=== PATIENT | female | born 1945 | race Caucasian/White ===

== ENCOUNTER → 2017-01-10 | Outpatient (CLI) | payer MEDICARE ==
--- NOTE | 2017-01-12 06:54 | MM ---
Reason for exam: screening (asymptomatic). Last mammogram was performed 1 year and 4 months ago. History: Patient is postmenopausal. Family history of breast cancer in maternal aunt at age 70 and premenopausal breast cancer in maternal cousin at age 45. Benign right US cyst aspiration of the right breast, April 05, 2008. Took hormonal contraceptives for 3 years. Physical Findings: A clinical breast exam by your physician is recommended on an annual basis and results should be correlated with mammographic findings. MG 3D Screening Mammo W/Cad Bilateral CC and MLO view(s) were taken. Prior study comparison: September 23, 2015, bilateral MG 3d screening mammo w/cad. September 13, 2014, bilateral MG screening mammo w CAD. March 09, 2013, bilateral digital screening mammo w/CAD. March 07, 2012, bilateral digital screening mammo w/CAD. There are scattered fibroglandular densities. No significant changes when compared with prior studies. ASSESSMENT: Negative, BI-RAD 1 RECOMMENDATION: Routine screening mammogram of both breasts in 1 year.
== END ==
LOC: RADMAMWWP 15:34
PROVIDERS: ATTEND Family Medicine
DX: Z12.31 Encounter for screening mammogram for malignant neoplasm of breast (principal)
CPT/HCPCS: 77063; G0202

== ENCOUNTER → 2018-08-04 | Outpatient (CLI) | payer MEDICARE ==
--- NOTE | 2018-08-04 16:54 | XR ---
EXAMINATION TYPE: XR chest 2V DATE OF EXAM: 08/04/2018 COMPARISON: NONE HISTORY: Shortness of breath TECHNIQUE: Frontal and lateral views of the chest are obtained. FINDINGS: Question some abnormal increased density in the left upper lobe, seen somewhat better on th e lateral exam. There is no pleural effusion or pneumothorax seen. The cardiac silhouette size is wi thin normal limits. Pulmonary artery appears somewhat prominently. The osseous structures are intact . IMPRESSION: There may be upper lobe atelectasis or pneumonia, follow-up to resolution. Correlate for possible pulmonary artery hypertension. A [place] level critical message alert has been initiated for Kanika Vides MD via the [employer] Critical Results System on 08/04/2018 4:52 PM. This message alert has been sent to Kanika Banegas MD via the preferences provided by the clinician for the receipt of Radiology Critical Findings . Message ID [id number].
== END ==
LOC: RADXRMAIN 15:40
PROVIDERS: ATTEND Family Medicine
DX: R06.02 Shortness of breath (principal)
CPT/HCPCS: 71046

== ENCOUNTER 2018-08-07 14:46 | Inpatient (IN) | payer MEDICARE ==
[2018-08-07 16:14] LABS: Appearance,Urine Clear (Clear); Bilirubin,Urine Negative (Negative); Blood,Urine Negative (Negative); Color,Urine Light Yellow; Glucose,Urine (UA) Negative (Negative); Ketones,Urine Negative (Negative); Leukocyte Esterase,Urine Negative (Negative); Nitrite,Urine Negative (Negative); Protein,Urine Negative (Negative); Specific Gravity,Urine 1.009 (1.001-1.035); Urobilinogen,Urine <2.0 mg/dL (<2.0)
--- NOTE | 2018-08-07 17:12 | ED ---
General Adult HPI - General Source: patient, EMS, RN notes reviewed Mode of arrival: EMS Limitations: no limitations <Serjio Luke - Last Filed: 08/07/18 17:10> <Logan Sellers - Last Filed: 08/07/18 20:17> - General Chief complaint: Back Pain/Injury Stated complaint: Back pain Time Seen by Provider: 08/07/18 15:35 - History of Present Illness Initial comments: Patient 73-year-old female presented to the emergency room today with a chief complaint of right-sided lower back pain. Patient does admit that the past few weeks and feeling some right-sided back pain. She states it started as an achy type pain. She states it got worse last week she follow-up the family doctor. She states she had a chest x-ray obtained was told she had pneumonia and was started on antibiotics of Bactrim. She was also given steroids. Patient states that steroids initially did give her some relief. She states that they do not seem to be helping much today that she had increased pain right side of her lower back. States it is worse with movements and when she bends, twists or turns. Patient denies any specific injury or trauma. Denies any bowel or bladder incontinence retention. Denies any saddle anesthesia. Patient denies any other complaints. Patient denies any recent fever, chills, shortness of breath, chest pain, abdominal pain, nausea or vomiting, numbness or tingling, dysuria or hematuria, headaches or visual changes, or any other complaints. ( Serjio Luke) - Related Data Home Medications Medication Instructions Recorded Confirmed Aspirin 81 mg PO HS 12/12/14 08/07/18 Atenolol [Tenormin] 50 mg PO HS 12/12/14 08/07/18 Calcium Carbonate/Vitamin D3 1 tab PO DAILY 12/12/14 08/07/18 [Caltrate 600 + D Tablet] Losartan/Hydrochlorothiazide 1 tab PO DAILY 12/12/14 08/07/18 [Hyzaar 100-25 Tablet] Multivitamin/Iron/Folic Acid 1 tab PO DAILY 12/12/14 08/07/18 [Centrum Complete Multivit Tab] Simvastatin [Zocor] 40 mg PO HS 12/12/14 08/07/18 Acetaminophen Tab [Tylenol Tab] 1,000 mg PO Q6HR PRN 08/07/18 08/07/18 Flaxseed Oil 1,000 mg PO DAILY 08/07/18 08/07/18 Allergies Allergy/AdvReac Type Severity Reaction Status Date / Time No Known Allergies Allergy Verified 08/07/18 15:22 Review of Systems ROS Other: All systems not noted in ROS Statement are negative. <LukeSerjio - Last Filed: 08/07/18 17:10> ROS Other: All systems not noted in ROS Statement are negative. <Logan Sellers - Last Filed: 08/07/18 20:17> ROS Statement: Those systems with pertinent positive or pertinent negative responses have been documented in the HPI. Past Medical History Past Medical History: Hyperlipidemia, Hypertension, Pneumonia, Thyroid Disorder Additional Past Medical History / Comment(s): Back pain since May 2018. History of Any Multi-Drug Resistant Organisms: None Reported Past Surgical History: Orthopedic Surgery, Tonsillectomy Additional Past Surgical History / Comment(s): colonoscopy, left hip replacement Past Anesthesia/Blood Transfusion Reactions: No Reported Reaction Past Psychological History: No Psychological Hx Reported Smoking Status: Former smoker Past Alcohol Use History: Rare Past Drug Use History: None Reported - Past Family History Mother Additional Family Medical History / Comment(s): diabetes <Serjio Luke - Last Filed: 08/07/18 17:10> General Exam Limitations: no limitations <LukeSerjio - Last Filed: 08/07/18 17:10> General appearance: alert, in no apparent distress Head exam: Present: atraumatic, normocephalic, normal inspection Eye exam: Present: normal appearance, PERRL, EOMI. Absent: scleral icterus, conjunctival injection, periorbital swelling ENT exam: Present: normal exam, mucous membranes moist Neck exam: Present: normal inspection. Absent: tenderness, meningismus, lymphadenopathy Respiratory exam: Present: normal lung sounds bilaterally. Absent: respiratory distress, wheezes, rales, rhonchi, stridor Cardiovascular Exam: Present: regular rate, normal rhythm, normal heart sounds. Absent: systolic murmur, diastolic murmur, rubs, gallop, clicks GI/Abdominal exam: Present: soft, normal bowel sounds. Absent: distended, tenderness, guarding, rebound, rigid Extremities exam: Present: normal inspection, full ROM, normal capillary refill. Absent: tenderness, pedal edema, joint swelling, calf tenderness Back exam: Present: normal inspection Neurological exam: Present: alert, oriented X3, CN II-XII intact Psychiatric exam: Present: normal affect, normal mood Skin exam: Present: warm, dry, intact, normal color. Absent: rash <Logan Sellers - Last Filed: 08/07/18 20:17> - General Exam Comments Initial Comments: General: The patient is awake and alert, in no distress, and does not appear acutely ill. Eye: Pupils are equal, round and reactive to light. Extra-ocular movements are intact. No nystagmus. There is normal conjunctiva bilaterally. No signs of icterus. Ears, nose, mouth and throat: There are moist mucous membranes and no oral lesions. Neck: The neck is supple, there is no tenderness or JVD. Cardiovascular: There is a regular rate and rhythm. No murmur, rub or gallop is appreciated. Respiratory: Lungs are clear to auscultation, respirations are non-labored, breath sounds are equal. No wheezes, stridor, rales, or rhonchi. Gastrointestinal: Soft, non-distended, non-tender abdomen without masses or organomegaly noted. There is no rebound or guarding present. No CVA tenderness. Musculoskeletal: Patient shows good range of motion. Normal appearance of thoracic lumbar spine with no step-off or deformity. Patient has some tenderness midline. Patient does have tenderness. She will right side of the mid lumbar. Sensation intact. Strength 5/5. Pulses equal bilaterally 2+. Neurological: A&O x 3. CN II-XII intact, There are no obvious motor or sensory deficits. Coordination appears grossly intact. Speech is normal. Skin: Skin is warm and dry and no rashes or lesions are noted. Psychiatric: Cooperative, appropriate mood & affect, normal judgment. (Serjio Luke) Course <Serjio Luke - Last Filed: 08/07/18 17:10> <Logan Sellers - Last Filed: 08/07/18 20:17> Vital Signs 08/07/18 08/07/18 08/07/18 15:23 16:00 16:49 Temperature 99.3 F Pulse Rate 70 80 Respiratory 16 18 Rate Blood Pressure 148/67 148/67 146/77 O2 Sat by Pulse 96 97 96 Oximetry 08/07/18 08/07/18 18:00 19:00 Temperature Pulse Rate 70 77 Respiratory 16 16 Rate Blood Pressure 143/73 143/73 O2 Sat by Pulse 96 94 L Oximetry - Reevaluation(s) Reevaluation #1: 08/07/18 20:17 Patient informed of computed tomography scan findings, questions answered ( Logan Sellers) EKG Findings - EKG Comments: EKG Findings:: EKG shows normal sinus rhythm rate of 64, KS 146, QRS 88, QTc 433 <Logan Sellers - Last Filed: 08/07/18 20:17> Medical Decision Making <Serjio Luke - Last Filed: 08/07/18 17:10> - Lab Data Result diagrams: 08/07/18 16:45 08/07/18 16:45 - Radiology Data Radiology results: report reviewed (Chest x-ray negative,CT scan shows lung cancer with full lumbar and thoracic spinal metastasis), image reviewed <Logan Sellers - Last Filed: 08/07/18 20:17> - Medical Decision Making 73 female the ER for evaluation of back pain, back pain related to cancer with metastasis to spine. Patient be admitted for pain control and oncology evaluation (Logan Sellers) - Lab Data Lab Results 08/07/18 08/07/18 08/07/18 Range/Units 16:00 16:45 16:45 WBC 11.9 H (3.8-10.6) k/uL RBC 4.31 (3.80-5.40) m/uL Hgb 12.8 (11.4-16.0) gm/dL Hct 38.4 (34.0-46.0) % MCV 89.1 (80.0-100.0) fL MCH 29.8 (25.0-35.0) pg MCHC 33.5 (31.0-37.0) g/dL RDW 12.9 (11.5-15.5) % Plt Count 356 (150-450) k/uL Neutrophils % 81 % Lymphocytes % 15 % Monocytes % 4 % Eosinophils % 0 % Basophils % 0 % Neutrophils # 9.7 H (1.3-7.7) k/uL Lymphocytes # 1.7 (1.0-4.8) k/uL Monocytes # 0.4 (0-1.0) k/uL Eosinophils # 0.0 (0-0.7) k/uL Basophils # 0.0 (0-0.2) k/uL PT (9.0-12.0) sec INR (<1.2) APTT (22.0-30.0) sec Sodium (137-145) mmol/L Potassium (3.5-5.1) mmol/L Chloride (98-107) mmol/L Carbon Dioxide (22-30) mmol/L Anion Gap mmol/L BUN (7-17) mg/dL Creatinine (0.52-1.04) mg/dL Est GFR (CKD-EPI)AfAm (>60 ml/min/1.73 sqM) Est GFR (CKD-EPI)NonAf (>60 ml/min/1.73 sqM) Glucose (74-99) mg/dL Calcium (8.4-10.2) mg/dL Total Bilirubin (0.2-1.3) mg/dL AST (14-36) U/L ALT (9-52) U/L Alkaline Phosphatase (38-126) U/L Total Creatine Kinase 29 L (30-135) U/L CK-MB (CK-2) 1.1 (0.0-2.4) ng/mL CK-MB (CK-2) Rel Index 3.8 Troponin I <0.012 (0.000-0.034) ng/mL Total Protein (6.3-8.2) g/dL Albumin (3.5-5.0) g/dL Urine Color Light Yellow Urine Appearance Clear (Clear) Urine pH 7.0 (5.0-8.0) Ur Specific [place] 1.009 (1.001-1.035) Urine Protein Negative (Negative) Urine Glucose (UA) Negative (Negative) Urine Ketones Negative (Negative) Urine Blood Negative (Negative) Urine Nitrite Negative (Negative) Urine Bilirubin Negative (Negative) Urine Urobilinogen <2.0 (<2.0) mg/dL Ur Leukocyte Esterase Negative (Negative) 08/07/18 08/07/18 Range/Units 16:45 16:45 WBC (3.8-10.6) k/uL RBC (3.80-5.40) m/uL Hgb (11.4-16.0) gm/dL Hct (34.0-46.0) % MCV (80.0-100.0) fL MCH (25.0-35.0) pg MCHC (31.0-37.0) g/dL RDW (11.5-15.5) % Plt Count (150-450) k/uL Neutrophils % % Lymphocytes % % Monocytes % % Eosinophils % % Basophils % % Neutrophils # (1.3-7.7) k/uL Lymphocytes # (1.0-4.8) k/uL Monocytes # (0-1.0) k/uL Eosinophils # (0-0.7) k/uL Basophils # (0-0.2) k/uL PT 9.8 (9.0-12.0) sec INR 1.0 (<1.2) APTT 21.3 L (22.0-30.0) sec Sodium 136 L (137-145) mmol/L Potassium 4.5 (3.5-5.1) mmol/L Chloride 101 (98-107) mmol/L Carbon Dioxide 24 (22-30) mmol/L Anion Gap 11 mmol/L BUN 34 H (7-17) mg/dL Creatinine 1.28 H (0.52-1.04) mg/dL Est GFR (CKD-EPI)AfAm 48 (>60 ml/min/1.73 sqM) Est GFR (CKD-EPI)NonAf 42 (>60 ml/min/1.73 sqM) Glucose 126 H (74-99) mg/dL Calcium 9.8 (8.4-10.2) mg/dL Total Bilirubin 0.5 (0.2-1.3) mg/dL AST 25 (14-36) U/L ALT 34 (9-52) U/L Alkaline Phosphatase 146 H (38-126) U/L Total Creatine Kinase (30-135) U/L CK-MB (CK-2) (0.0-2.4) ng/mL CK-MB (CK-2) Rel Index Troponin I (0.000-0.034) ng/mL Total Protein 7.1 (6.3-8.2) g/dL Albumin 4.2 (3.5-5.0) g/dL Urine Color Urine Appearance (Clear) Urine pH (5.0-8.0) Ur Specific [place] (1.001-1.035) Urine Protein (Negative) Urine Glucose (UA) (Negative) Urine Ketones (Negative) Urine Blood (Negative) Urine Nitrite (Negative) Urine Bilirubin (Negative) Urine Urobilinogen (<2.0) mg/dL Ur Leukocyte Esterase (Negative) Disposition <Serjio Luke - Last Filed: 08/07/18 17:10> Is patient prescribed a controlled substance at d/c from ED?: No <Logan Sellers - Last Filed: 08/07/18 20:17> Clinical Impression: Metastatic cancer to spine, Mid back pain, Thoracic back pain Disposition: ADMITTED IP TO THIS HOSP Condition: Good Referrals: Kanika Vides MD [Primary Care Provider] - 1-2 days
[2018-08-07 17:16] LABS: Basophils % (A) 0 %; Eosinophils % (A) 0 %; HCT 38.4 % (34.0-46.0); HGB 12.8 gm/dL (11.4-16.0); Lymphocytes # (A) 1.7 k/uL (1.0-4.8); Lymphocytes % (A) 15 %; MCH 29.8 pg (25.0-35.0); MCHC 33.5 g/dL (31.0-37.0); MCV 89.1 fL (80.0-100.0); Mean Platelet Volume 6.7; Monocytes # (A) 0.4 k/uL (0-1.0); Monocytes % (A) 4 %; Neutrophils # (A) 9.7 k/uL (1.3-7.7); Neutrophils % (A) 81 %; Platelet Count 356 k/uL (150-450); RBC 4.31 m/uL (3.80-5.40); RDW 12.9 % (11.5-15.5); WBC 11.9 k/uL (3.8-10.6)
--- NOTE | 2018-08-07 17:19 | XR ---
EXAMINATION: XR chest 2V DATE AND TIME: 08/07/2018 4:44 PM CLINICAL INDICATION: cough TECHNIQUE: 08/07/2018 COMPARISON: 08/04/2018 FINDINGS: Abnormally increased opacity noted within the perihilar left upper lobe anteriorly. A few other scatt ered shadows are also noted. Further characterization with chest with contrast is advised. There is no pulmonary edema. No pleural effusions. No abnormal gas collections. The cardiomediastinal silhouette and bones and soft tissues are unremarkable. IMPRESSION: CHEST CT APPEARS TO BE SCHEDULED FOR LATER THIS EVENING.
[2018-08-07 17:26] LABS: Prothrombin Time 9.8 sec (9.0-12.0)
[2018-08-07 17:27] LABS: Albumin 4.2 g/dL (3.5-5.0); Calcium 9.8 mg/dL (8.4-10.2); Potassium 4.5 mmol/L (3.5-5.1); Total Bilirubin 0.5 mg/dL (0.2-1.3); Total Protein 7.1 g/dL (6.3-8.2)
[2018-08-07 17:30] LABS: Creatine Kinase 29 U/L (30-135)
[2018-08-07 17:34] LABS: Partial Thromboplastin Time 21.3 sec (22.0-30.0)
[2018-08-07 17:42] LABS: Creatine Kinase MB 1.1 ng/mL (0.0-2.4); Troponin I <0.012 ng/mL (0.000-0.034)
--- NOTE | 2018-08-07 19:53 | CT ---
EXAMINATION TYPE: CT ChestAbdPelvis wo con DATE OF EXAM: 08/07/2018 COMPARISON: Chest radiograph earlier today. HISTORY: Right side flank and back pain. CT DLP: 760.4 mGycm. Automated Exposure Control for Dose Reduction was Utilized. TECHNIQUE: CT scan of the thorax, abdomen and pelvis is performed without IV contrast. CHEST FINDINGS: There is a 4.5 cm CC by 3.5 cm AP by 2.2 cm transverse bronchogenic soft tissue density mass located within the left upper lobe anteriorly at the level of the upper hilum. Contiguous with this mass is l eft suprahilar adenopathy. There is scattered bronchiectasis. There are a few scattered nonspecific tiny pulmonary opacities noted bilaterally, measuring 1 to 3 mm . The lungs are otherwise clear and well-expanded bilaterally. There is no cardiomegaly or pericardial effusion. Coronary calcifications are noted. There are numerous spinal metastases measuring 3 cm diameter throughout the thoracic spine. Further c haracterization with MRI is recommended. ABDOMEN PELVIS FINDINGS: There are numerous skeletal skeletal osteolytic lesions consistent with neoplastic metastases. These include the spine and the right femoral head, with several measuring 3 cm diameter. Solid viscera are negative for visceromegaly or focal lesions. Hollow viscera are unremarkable. No adenopathy. No abnormal fluid or gas collections. No bowel wall obstruction or urinary tract obstruction, or panc reatic/biliary obstruction. IMPRESSION: 1. LARGE LEFT UPPER LOBE BRONCHOGENIC MASS WITH LEFT SUPRAHILAR HILAR ADENOPATHY. 2. NUMEROUS OSSEOUS METASTATIC LESIONS.
[2018-08-07] MEDS ORDERED: MORPHINE SULFATE 4 MG/ML SYRINGE IVP STA (20:18)
[2018-08-07] MEDS ORDERED: SODIUM CHLORIDE 0.9% 1,000 ML IV ONE (20:18)
[2018-08-07 23:41] VITALS: BMI 30.5
[2018-08-07] MEDS: MORPHINE SULFATE 4 MG/ML SYRINGE IVP PRN (23:49)
[2018-08-08] MEDS: MORPHINE SULFATE 4 MG/ML SYRINGE IVP PRN (05:26)
[2018-08-08] MEDS ORDERED: ENOXAPARIN 40 MG/0.4 ML SYRINGE SQ SCH (09:00)
[2018-08-08] MEDS ORDERED: NON-FORMULARY DRUG (Flaxseed Oil [Flaxseed Oil] 1,000 MG) PO SCH (09:00)
[2018-08-08 10:06] LABS: Basophils # (A) 0.1 k/uL (0-0.2); Basophils % (A) 0 %; Eosinophils # (A) 0.2 k/uL (0-0.7); Eosinophils % (A) 1 %; HCT 38.3 % (34.0-46.0); HGB 12.8 gm/dL (11.4-16.0); Lymphocytes # (A) 3.5 k/uL (1.0-4.8); Lymphocytes % (A) 27 %; MCH 30.2 pg (25.0-35.0); MCHC 33.5 g/dL (31.0-37.0); MCV 90.2 fL (80.0-100.0); Mean Platelet Volume 6.7; Monocytes # (A) 0.9 k/uL (0-1.0); Monocytes % (A) 7 %; Neutrophils # (A) 8.3 k/uL (1.3-7.7); Neutrophils % (A) 63 %; Platelet Count 338 k/uL (150-450); RBC 4.25 m/uL (3.80-5.40); WBC 13.1 k/uL (3.8-10.6)
[2018-08-08 10:13] LABS: Albumin 3.9 g/dL (3.5-5.0); Calcium 9.6 mg/dL (8.4-10.2); Potassium 4.2 mmol/L (3.5-5.1); Total Bilirubin 0.5 mg/dL (0.2-1.3); Total Protein 6.6 g/dL (6.3-8.2)
[2018-08-08] MEDS ORDERED: IOPAMIDOL-300 CONTRAST 30 ML VIAL (ORAL USE) PO PRN (10:28)
[2018-08-08] MEDS: CALCIUM CARB-VIT D 500MG-200UN 1 EACH TAB PO SCH (10:39)
[2018-08-08] MEDS: FAMOTIDINE 20 MG TAB PO SCH (10:39)
[2018-08-08] MEDS: MULTIVITAMINS, THERA 1 EACH TAB PO SCH (10:39)
[2018-08-08] MEDS: DEXAMETHASONE SOD PHOSPHATE 4 MG/ML 1 ML VIAL IV SCH ×3 (10:39→23:57)
--- NOTE | 2018-08-08 10:44 | P.HPIM ---
History of Present Illness H&P Date: 08/08/18 Chief Complaint: Back pain This is a 73-year-old patient of Dr. Vides. Patient presented to the emergency room with complaints of increased right lower back pain. Patient states the pain has been occurring for quite some time but has significantly become worse over the past few weeks. Patient to go to her PCP and get a steroid injection that provided some relief. That time a chest x-ray was completed and she was told she had pneumonia and was started on antibiotics. Over the weekend pain became increasingly worse and patient presented to the emergency room. CT of chest abdomen and pelvis completed showing a large left upper lobe bronchogenic mass with left suprahilar adenonpathy. Numerous osseous metastases lesions. Patient has a known past medical history of Hyperlipidemia, hypertension and thyroid disorder. Patient denies any cancer history. Patient does state she smoked back in the 70s but quit after a few years. Patient denies any recent weight loss, loss of appetite or chills. Dr. Leigh per oncology consulted. Discussed case with Dr. leigh planning to do lung biopsy. Pulmonary service is consulted. Patient currently getting morphine for pain control at this time. Patient does state that pain is adequately controlled. At this time patient denies chest pain or shortness of breath. Patient denies nausea vomiting or diarrhea. Patient denies any urinary burning or frequency. Review of Systems please refer to for HPI otherwise unremarkable Past Medical History Past Medical History: Hyperlipidemia, Hypertension, Pneumonia, Thyroid Disorder Additional Past Medical History / Comment(s): Back pain since May 2018. History of Any Multi-Drug Resistant Organisms: None Reported Past Surgical History: Orthopedic Surgery, Tonsillectomy Additional Past Surgical History / Comment(s): colonoscopy, left hip replacement Past Anesthesia/Blood Transfusion Reactions: No Reported Reaction Past Psychological History: No Psychological Hx Reported Smoking Status: Former smoker Past Alcohol Use History: Rare Past Drug Use History: None Reported - Past Family History Mother Additional Family Medical History / Comment(s): diabetes Medications and Allergies Home Medications Medication Instructions Recorded Confirmed Type Aspirin 81 mg PO HS 12/12/14 08/07/18 History Atenolol [Tenormin] 50 mg PO HS 12/12/14 08/07/18 History Calcium Carbonate/Vitamin D3 1 tab PO DAILY 12/12/14 08/07/18 History [Caltrate 600 + D Tablet] Losartan/Hydrochlorothiazide 1 tab PO DAILY 12/12/14 08/07/18 History [Hyzaar 100-25 Tablet] Multivitamin/Iron/Folic Acid 1 tab PO DAILY 12/12/14 08/07/18 History [Centrum Complete Multivit Tab] Simvastatin [Zocor] 40 mg PO HS 12/12/14 08/07/18 History Acetaminophen Tab [Tylenol Tab] 1,000 mg PO Q6HR PRN 08/07/18 08/07/18 History Flaxseed Oil 1,000 mg PO DAILY 08/07/18 08/07/18 History Allergies Allergy/AdvReac Type Severity Reaction Status Date / Time No Known Allergies Allergy Verified 08/07/18 15:22 Physical Exam Vitals: Vital Signs Temp Pulse Pulse Resp BP BP Pulse Ox 08/08/18 08:00 72 16 08/08/18 05:52 98.2 F 72 16 139/65 95 08/07/18 22:44 98.4 F 71 16 137/71 96 08/07/18 21:18 99.1 F 85 16 137/74 99 08/07/18 19:00 77 16 143/73 94 L 08/07/18 18:00 70 16 143/73 96 08/07/18 16:49 80 18 146/77 96 08/07/18 16:00 148/67 97 08/07/18 15:23 99.3 F 70 16 148/67 96 Intake and Output 08/07/18 08/08/18 08/08/18 22:59 06:59 14:59 Intake Total 1400 480 Balance 1400 480 Intake: Intake, IV Titration 800 Amount Sodium Chloride 0.9% 1, 800 000 ml @ 100 mls/hr IV . Q10H ONE Rx#:[id number] Oral 600 480 Other: Voiding Method Toilet Toilet # Voids 2 2 Weight 88.451 kg 88.451 kg Head normocephalic Neck supple Lungs clear to auscultation bilaterally no wheezing or crackles Heart regular rate and rhythm S1-S2, no rub or gallop Abdomen is soft nontender nondistended positive bowel sounds no hepatosplenomegaly Extremities no edema Neuro alert and orientated to 3 Results CBC & Chem 7: 08/08/18 09:47 08/08/18 09:47 Labs: Abnormal Lab Results - Last 24 Hours (Table) 08/07/18 08/07/18 08/07/18 Range/Units 16:45 16:45 16:45 WBC 11.9 H (3.8-10.6) k/uL Neutrophils # 9.7 H (1.3-7.7) k/uL APTT (22.0-30.0) sec Sodium 136 L (137-145) mmol/L BUN 34 H (7-17) mg/dL Creatinine 1.28 H (0.52-1.04) mg/dL Glucose 126 H (74-99) mg/dL Alkaline Phosphatase 146 H (38-126) U/L Total Creatine Kinase 29 L (30-135) U/L 08/07/18 08/08/18 08/08/18 Range/Units 16:45 09:47 09:47 WBC 13.1 H (3.8-10.6) k/uL Neutrophils # 8.3 H (1.3-7.7) k/uL APTT 21.3 L (22.0-30.0) sec Sodium 136 L (137-145) mmol/L BUN 29 H (7-17) mg/dL Creatinine 1.10 H (0.52-1.04) mg/dL Glucose 120 H (74-99) mg/dL Alkaline Phosphatase 145 H (38-126) U/L Total Creatine Kinase (30-135) U/L Assessment and Plan Assessment: 1. Right lower back pain. Chest abdomen and pelvis CT completed showing large left upper lobe bronchiogenic mass with left suprahilar adenopathy. Numerous osseous metastases lesions. Dr. Leigh has been consulted for oncology services. Will discuss case with Dr. leigh planning possible lung biopsy. Pulmonary services have been consulted. Currently receiving morphine for pain control at this time 2. History of tobacco use. Patient states she smoked in the 70s but quit when she became with her first daughter only smoked for a couple years 3. History of hyperlipidemia 4. History of essential hypertension 5. History of thyroid disorder 6. Acute kidney injury. Initial creatinine 1.28 and bun 34. Continue to monitor closely 7. Elevated liver enzymes. Alkaline phosphatase 146. We'll continue to monitor closely Tylenol on hold 8. Leukocytosis. White Blood cell 13.1. Patient did state she got steroid injection by her PCP on Tuesday. Patient also on Decadron per oncology services. UA negative. We'll continue to monitor closely at this time DVT prophylaxis Lovenox and GI prophylaxis Pepcid Time with Patient: Greater than 30 (Greater than 60% of the total time spent in counseling and coordination of care. I performed an examination of the patient and discussed their management with the Nurse Practitioner. I have reviewed the Nurse Practitioner's notes and agree with the documented findings and plan of care)
[2018-08-08] MEDS ORDERED: MORPHINE SULFATE 2 MG/ML SYRINGE IVP PRN (11:23)
[2018-08-08] MEDS: HYDROcodone/APAP 5-325MG 1 EACH TAB PO PRN ×2 (12:05→21:12)
[2018-08-08 12:48] LABS: Hemoglobin A1C 5.9 % (4.0-6.0)
--- NOTE | 2018-08-08 13:19 | P.CONS ---
History of Present Illness - Reason for Consult Consult date: 08/08/18 bone mets Requesting physician: Khanh Leigh - Chief Complaint back pain - History of Present Illness The patient is a 73-year-old female who presented to the ER with progressive lower right back pain. According to the patient, this pain has been gradually increasing over the past 1-2 weeks. She was seen was past week by her primary care physician. She initially had a steroid shot which seemed to help. However , within a couple of days the pain again progressed. She presented to the ER on 08/07 when she reported the pain was up to 10 out of 10. The pain was so severe she was unable to ambulate secondary to the pain. A CT scan of the chest , abdomen and pelvis on August 07 revealed a 4.5 x 3.5 x 2.2 cm left upper lung mass extending to the hilum. Numerous lesions in the thoracic and lumbar spine were seen, as well as a metastasis in the right femoral head. Since admission, the patient is doing much better with morphine for pain management. This takes her pain level down to 1 or 2 out of 10. The pain still could be exacerbated with ambulating, twisting or moving the low back. She denies difficulty with numbness or tingling of the extremities, has no weakness of the extremities and no urinary incontinence. The patient did have an episode of loss of urine control while at home when she could not get to the bathroom on time. She reports no difficulty with cough or dyspnea on exertion. Review of Systems Constitutional: Denies chills, Denies fever Eyes: denies blurred vision Ears, nose, mouth and throat: Denies headache Breasts: absent: masses Cardiovascular: Denies chest pain, Denies dyspnea on exertion Respiratory: Denies cough, Denies dyspnea, Denies hemoptysis Gastrointestinal: Denies abdominal pain Genitourinary: Denies abnormal vaginal bleeding Musculoskeletal: Reports low back pain Neurological: Denies aphasia, Denies ataxia, Denies burning pain, Denies confusion, Denies convulsions, Denies headaches, Denies loss of vision Psychiatric: Denies anxiety, Denies depression Past Medical History Past Medical History: Hyperlipidemia, Hypertension, Pneumonia, Thyroid Disorder Additional Past Medical History / Comment(s): Back pain since May 2018. History of Any Multi-Drug Resistant Organisms: None Reported Past Surgical History: Orthopedic Surgery, Tonsillectomy Additional Past Surgical History / Comment(s): colonoscopy, left hip replacement Past Anesthesia/Blood Transfusion Reactions: No Reported Reaction Past Psychological History: No Psychological Hx Reported Smoking Status: Former smoker (<1 pack per day for 9 years - quit 1973) Past Alcohol Use History: Rare Past Drug Use History: None Reported - Past Family History Mother Additional Family Medical History / Comment(s): diabetes Medications and Allergies Home Medications Medication Instructions Recorded Confirmed Type Aspirin 81 mg PO HS 12/12/14 08/07/18 History Atenolol [Tenormin] 50 mg PO HS 12/12/14 08/07/18 History Calcium Carbonate/Vitamin D3 1 tab PO DAILY 12/12/14 08/07/18 History [Caltrate 600 + D Tablet] Losartan/Hydrochlorothiazide 1 tab PO DAILY 12/12/14 08/07/18 History [Hyzaar 100-25 Tablet] Multivitamin/Iron/Folic Acid 1 tab PO DAILY 12/12/14 08/07/18 History [Centrum Complete Multivit Tab] Simvastatin [Zocor] 40 mg PO HS 12/12/14 08/07/18 History Acetaminophen Tab [Tylenol Tab] 1,000 mg PO Q6HR PRN 08/07/18 08/07/18 History Flaxseed Oil 1,000 mg PO DAILY 08/07/18 08/07/18 History Allergies Allergy/AdvReac Type Severity Reaction Status Date / Time No Known Allergies Allergy Verified 08/07/18 15:22 Physical Exam Vitals: Vital Signs Temp Pulse Pulse Resp BP BP BP 08/08/18 11:50 97.6 F 68 14 136/69 08/08/18 08:30 14 08/08/18 08:00 72 16 08/08/18 05:52 98.2 F 72 16 139/65 08/07/18 22:44 98.4 F 71 16 137/71 08/07/18 21:18 99.1 F 85 16 137/74 08/07/18 19:00 77 16 143/73 08/07/18 18:00 70 16 143/73 08/07/18 16:49 80 18 146/77 08/07/18 16:00 148/67 08/07/18 15:23 99.3 F 70 16 148/67 Pulse Ox 08/08/18 11:50 96 08/08/18 08:30 08/08/18 08:00 08/08/18 05:52 95 08/07/18 22:44 96 08/07/18 21:18 99 08/07/18 19:00 94 L 08/07/18 18:00 96 08/07/18 16:49 96 08/07/18 16:00 97 08/07/18 15:23 96 Intake and Output 08/07/18 08/08/18 08/08/18 22:59 06:59 14:59 Intake Total 1400 480 Balance 1400 480 Intake: Intake, IV Titration 800 Amount Sodium Chloride 0.9% 1, 800 000 ml @ 100 mls/hr IV . Q10H ONE Rx#:[id number] Oral 600 480 Other: Voiding Method Toilet Toilet # Voids 2 2 3 Weight 88.451 kg 88.451 kg - Constitutional General appearance: average body habitus, no acute distress - EENT Eyes: EOMI, PERRLA ENT: NA/AT - Neck Neck: no lymphadenopathy - Respiratory Respiratory: bilateral: CTA - Cardiovascular Rhythm: regular - Gastrointestinal General gastrointestinal: no tenderness - Integumentary Integumentary: no calor, no cellulitis - Neurologic Neurologic: CNII-XII intact - Musculoskeletal Musculoskeletal: strength equal bilaterally - Psychiatric Psychiatric: A&O x's 3, appropriate affect, intact judgment & insight Results CBC & Chem 7: 08/08/18 09:47 08/08/18 09:47 Labs: Abnormal Lab Results - Last 24 Hours (Table) 08/07/18 08/07/18 08/07/18 Range/Units 16:45 16:45 16:45 WBC 11.9 H (3.8-10.6) k/uL Neutrophils # 9.7 H (1.3-7.7) k/uL APTT (22.0-30.0) sec Sodium 136 L (137-145) mmol/L BUN 34 H (7-17) mg/dL Creatinine 1.28 H (0.52-1.04) mg/dL Glucose 126 H (74-99) mg/dL Alkaline Phosphatase 146 H (38-126) U/L Total Creatine Kinase 29 L (30-135) U/L 08/07/18 08/08/18 08/08/18 Range/Units 16:45 09:47 09:47 WBC 13.1 H (3.8-10.6) k/uL Neutrophils # 8.3 H (1.3-7.7) k/uL APTT 21.3 L (22.0-30.0) sec Sodium 136 L (137-145) mmol/L BUN 29 H (7-17) mg/dL Creatinine 1.10 H (0.52-1.04) mg/dL Glucose 120 H (74-99) mg/dL Alkaline Phosphatase 145 H (38-126) U/L Total Creatine Kinase (30-135) U/L Chest x-ray: image reviewed CT scan - chest: report reviewed, image reviewed CT scan - pelvis: report reviewed, image reviewed Assessment and Plan Plan: The patient is a 73-year-old female with findings concerning for a new primary lung cancer with bone metastasis. The patient does not have a significant smoking history; having briefly smoked and quit in the 1970s. 1. Right low back pain: This is likely secondary to the patient's bony metastasis. The patient appears to have a large lesion in the right femoral head as well as lesions within the sacrum. The lesion in the femur is at significant risk for fracture, and the patient should undergo palliative radiotherapy to this area. I would recommend orthopedics also take a look at the right hip to see if they feel this needs stabilization. The patient will first undergo MRI of the spine to rule out any areas of spinal cord compromise. She will also need radiotherapy to the T-spine as she has a lesion which appears to have extension into the spinal canal - MRI will help to further show this. 2. Newly diagnosed likely lung cancer: We will need to obtain a biopsy to establish diagnosis, as well as the likely need for mutational analysis. We will preferably wait for establishment of pathology prior to initiating any radiotherapy treatments. Time with Patient: Greater than 30
[2018-08-08] MEDS ORDERED: ONDANSETRON 4 MG/2 ML VIAL IVP PRN (13:54)
--- NOTE | 2018-08-08 14:02 | P.CNPUL ---
History of Present Illness Consult date: 08/08/18 Requesting physician: Con Stevenson Reason for consult: other (Back pain) Chief complaint: Back pain History of present illness: This is a very pleasant 73-year-old female patient who follows with Dr. Vides as her primary care physician. She has a history of hypertension, hyperlipidemia, left hip replacement. She has a very remote history of smoking. She had been having ongoing issues with right lower back pain. She had been seen by her PCP who performed a chest x-ray and she was told she had pneumonia and was started on steroids and Bactrim. She felt the steroids did give her some relief initially. The pain has progressively gotten worse and she presented to the emergency room yesterday afternoon for pain control. A chest x-ray revealed abnormality increased opacity noted in the perihilar left upper lobe anteriorly. A few other scattered shadows were also noted. Computed tomography scan revealed a 4.5 x 3.5 x 2.2 cm bronchogenic soft tissue density located in left upper lobe anteriorly at the left upper hilum. There is contiguous left suprahilar adenopathy. There is also noted numerous spinal metastases measuring 3 cm in diameter throughout the thoracic spine. The patient has no previous history of cancer. No pulmonary complaints. No hemoptysis. No weight loss. No shortness of breath. Her pain is improved today compared to yesterday she is being treated with morphine and Aurora. She has been initiated on Decadron. MRI of the cervical spine, brain, thoracic and lumbar spines are pending. She had been seen and evaluated by medical oncology and radiation oncology. We have been consulted for bronchoscopy with biopsy for diagnosis. Review of Systems Constitutional: Denies chills, Denies fever Eyes: denies blurred vision, denies decreased vision Ears: deny: decreased hearing Ears, nose, mouth and throat: Denies headache, Denies sore throat Cardiovascular: Denies chest pain, Denies shortness of breath Respiratory: Denies cough Gastrointestinal: Denies abdominal pain, Denies diarrhea, Denies nausea, Denies vomiting Genitourinary: Denies dysuria, Denies hematuria Musculoskeletal: Reports low back pain Integumentary: Denies pruritus, Denies rash Neurological: Denies numbness, Denies weakness Psychiatric: Denies anxiety, Denies depression Endocrine: Denies fatigue, Denies weight change Hematologic/Lymphatic: Reports as per HPI Allergic/Immunologic: Reports as per HPI Past Medical History Past Medical History: Hyperlipidemia, Hypertension, Pneumonia, Thyroid Disorder Additional Past Medical History / Comment(s): Back pain since May 2018. History of Any Multi-Drug Resistant Organisms: None Reported Past Surgical History: Orthopedic Surgery, Tonsillectomy Additional Past Surgical History / Comment(s): colonoscopy, left hip replacement Past Anesthesia/Blood Transfusion Reactions: No Reported Reaction Past Psychological History: No Psychological Hx Reported Smoking Status: Former smoker (<1 pack per day for 9 years - quit 1973) Past Alcohol Use History: Rare Past Drug Use History: None Reported - Past Family History Mother Additional Family Medical History / Comment(s): diabetes Medications and Allergies Home Medications Medication Instructions Recorded Confirmed Type Aspirin 81 mg PO HS 12/12/14 08/07/18 History Atenolol [Tenormin] 50 mg PO HS 12/12/14 08/07/18 History Calcium Carbonate/Vitamin D3 1 tab PO DAILY 12/12/14 08/07/18 History [Caltrate 600 + D Tablet] Losartan/Hydrochlorothiazide 1 tab PO DAILY 12/12/14 08/07/18 History [Hyzaar 100-25 Tablet] Multivitamin/Iron/Folic Acid 1 tab PO DAILY 12/12/14 08/07/18 History [Centrum Complete Multivit Tab] Simvastatin [Zocor] 40 mg PO HS 12/12/14 08/07/18 History Acetaminophen Tab [Tylenol Tab] 1,000 mg PO Q6HR PRN 08/07/18 08/07/18 History Flaxseed Oil 1,000 mg PO DAILY 08/07/18 08/07/18 History Allergies Allergy/AdvReac Type Severity Reaction Status Date / Time No Known Allergies Allergy Verified 08/07/18 15:22 Physical Exam Vitals: Vital Signs Temp Pulse Pulse Resp BP BP BP 08/08/18 11:50 97.6 F 68 14 136/69 08/08/18 08:30 14 08/08/18 08:00 72 16 08/08/18 05:52 98.2 F 72 16 139/65 08/07/18 22:44 98.4 F 71 16 137/71 08/07/18 21:18 99.1 F 85 16 137/74 08/07/18 19:00 77 16 143/73 08/07/18 18:00 70 16 143/73 08/07/18 16:49 80 18 146/77 08/07/18 16:00 148/67 08/07/18 15:23 99.3 F 70 16 148/67 Pulse Ox 08/08/18 11:50 96 08/08/18 08:30 08/08/18 08:00 08/08/18 05:52 95 08/07/18 22:44 96 08/07/18 21:18 99 08/07/18 19:00 94 L 08/07/18 18:00 96 08/07/18 16:49 96 08/07/18 16:00 97 08/07/18 15:23 96 Intake and Output 08/07/18 08/08/18 08/08/18 22:59 06:59 14:59 Intake Total 1400 480 Balance 1400 480 Intake: Intake, IV Titration 800 Amount Sodium Chloride 0.9% 1, 800 000 ml @ 100 mls/hr IV . Q10H ONE Rx#:[id number] Oral 600 480 Other: Voiding Method Toilet Toilet # Voids 2 2 3 Weight 88.451 kg 88.451 kg - Constitutional General appearance: average body habitus, cooperative, no acute distress - EENT Eyes: EOMI, PERRLA ENT: hearing grossly normal Ears: bilateral: normal - Neck Neck: normal ROM Carotids: bilateral: upstroke normal Thyroid: bilateral: normal size - Respiratory Respiratory: bilateral: CTA - Cardiovascular Rhythm: regular Heart sounds: normal: S1, S2 - Gastrointestinal General gastrointestinal: normal bowel sounds - Integumentary Integumentary: normal turgor - Neurologic Neurologic: CNII-XII intact - Musculoskeletal Musculoskeletal: generalized weakness - Psychiatric Psychiatric: A&O x's 3, appropriate affect, intact judgment & insight Results - Laboratory Findings CBC and BMP: 08/08/18 09:47 08/08/18 09:47 PT/INR, D-dimer PT 9.8 sec (9.0-12.0) 08/07/18 16:45 INR 1.0 (<1.2) 08/07/18 16:45 Abnormal lab findings: Abnormal Labs 08/07/18 08/07/18 08/07/18 16:45 16:45 16:45 WBC 11.9 H Neutrophils # 9.7 H APTT Sodium 136 L BUN 34 H Creatinine 1.28 H Glucose 126 H Alkaline Phosphatase 146 H Total Creatine Kinase 29 L 08/07/18 08/08/18 08/08/18 16:45 09:47 09:47 WBC 13.1 H Neutrophils # 8.3 H APTT 21.3 L Sodium 136 L BUN 29 H Creatinine 1.10 H Glucose 120 H Alkaline Phosphatase 145 H Total Creatine Kinase - Diagnostic Findings Chest x-ray: image reviewed CT scan - chest: image reviewed Assessment and Plan Assessment: Impression: #1 Spinal skeletal pain secondary to suspected metastasis with numerous lesions throughout the thoracic spine. There are numerous skeletal osteolytic lesions also noted in the right femoral head with several measuring 3 cm in diameter. #2 Bronchogenic soft tissue density mass measuring 4.5 x 3.5 x 2.2 cm located within the left upper lobe anteriorly at the level of the upper hilum. There is left suprahilar adenopathy as well. Suspect primary bronchogenic carcinoma with metastasis. #3 Remote history of chronic tobacco dependence. #4 Hypertension. #5 Hyperlipidemia. Plan: The patient was seen and evaluated by Dr. Wahl. Chest x-ray, CAT scan and labs were all reviewed. CAT scan findings were discussed in detail with the patient. We may consider bronchoscopy with biopsy in the a.m. The patient is agreeable. Hold Lovenox. Nothing by mouth after midnight. We will continue to follow and make further recommendations based on her clinical status. I, the cosigning physician, performed a history & physical examination of the patient. Lungs sounds are clear. Maintaining good O2 saturations in the 90s on room air. I discussed the assessment and plan of care with my nurse practitioner, Citlali Arceo. I attest to the above consultation as dictated by her. Time with Patient: Greater than 30
--- NOTE | 2018-08-08 17:49 | MR ---
MRI CERVICAL SPINE: MRI THORACIC SPINE: CLINICAL HISTORY: Lung cancer with spinal metastases per order. TECHNIQUE: Multiplanar, multisequence imaging of the cervical and thoracic spine are performed withou t and with IV contrast, 9 cc of gadolinium was given intravenously. COMPARISON: CT chest August 07, 2018. FINDINGS: C-SPINE: Sagittal images of the cervical spine show the craniocervical junction to appear within normal limits . The cervical and upper thoracic spinal cord is normal in course, caliber, and signal. There is lev oconvex scoliosis centered in the upper to mid thoracic spine on coronal images. There is grade 1 ret rolisthesis of C5 on C6. The vertebral body heights are normal. There is multilevel disc desiccation and fairly moderate disc space narrowing, most prominent narrowing at C5-C6 and C6-C7 levels. Multil evel posterior disc herniation effacing the anterior thecal sac on sagittal images. The bone marrow s ignal intensity shows some heterogeneous endplate changes centered near C6 level. No suspicious enhan cement is noted. Axial images at C2-C3 level to left and uncovertebral facet degenerative changes contributing to mode rate left-sided neural foraminal narrowing. Right-sided neural foramina is patent. Axial images at C3-C4 levels uncovertebral facet degenerative changes bilaterally. There is central d isc protrusion effaces the anterior thecal sac nearly up to ventral surface of the spinal cortex imag e 45. There is [id number] bilateral neural foraminal narrowing at this level identified. Axial images at C4-C5 level show left-sided uncovertebral facet degenerative changes. There is broad- based posterior disc protrusion. There is effacement of the anterior thecal sac with moderate to agus re left and mild to moderate right-sided neural foraminal narrowing. Axial images at C5-C6 level show posterior spur disc complex and uncovertebral facet degenerative german nges, there is effacement of anterior thecal sac with moderate left greater than right bilateral neur al foraminal narrowing noted. Axial images at C6-C7 level show spondylolisthesis and broad-based posterior disc protrusion effacing anterior thecal sac up to ventral surface of spinal cord, there is advanced right and moderate left- sided neural foraminal narrowing at this level identified. Axial images at C7-T1 level shows central disc protrusion effacing anterior thecal sac, bilateral bo ral foramina are patent. There is asymmetric enlargement left thyroid with 1.7 cm thyroid nodule suspected axial image 19. Adv ise thyroid ultrasound follow-up to better evaluate and characterize. IMPRESSION: No osseous metastatic disease to cervical spine. Spondylolisthesis and multilevel degener ative changes as detailed above. Left-sided thyroid nodule, advise thyroid ultrasound follow-up. T-SPINE: FINDINGS: Spinal cord shows normal course, caliber, and signal as it courses the thoracic spine. Dest ructive metastatic lesions involving T5 and T6 vertebra are identified. Additional lesions involving T12 and L2 vertebra are present. Slight posterior retropulsion of T5 vertebra effaces the anterior th ecal sac sagittal image 9. There is mild to moderate multilevel anterior spurring. Sclerotic lesion i n the anterior superior T11 vertebra is seen better on CT. There is overall heterogeneity of bone mar row signal intensity. No large posterior disc herniations are seen on sagittal images. Axial images are somewhat degraded by patient motion related to pain. Slight posterior effacement of right T12 vertebral body due to posterior retropulsion of metastatic lesion axial image 7 is noted. T here is partial visualization of suspicious anterior left upper to midlung mass or neoplasm with enha ncement axial image [address] IMPRESSION: Osseous metastatic lesions involving T5, T6, T12, and L2 vertebra. Some bony destruction most prominent T6 vertebra is noted. Slight posterior retropulsion of T5 and right T12 vertebra are present anterior spinal canal.
--- NOTE | 2018-08-08 19:49 | P.CONS ---
History of Present Illness - Reason for Consult Consult date: 08/08/18 lung mass and bone metastasis - History of Present Illness The patient is a 73-year-old white female, who is overall fairly healthy. The patient states that she been having some right lower back pain for some months off and on, with some radiation down the right leg. She had not paid much attention to it. However over the last 3-4 weeks to set become more severe and constant. She was seen by her PCP and received a steroid shot with transient relief. She was seen last week and had x-rays done and was felt to have possibly a left lower lobe pneumonia. She was started on antibiotics, but did not have much relief. She therefore came into the emergency room. She had an x-ray which indicated masslike density in the left lower lobe. CT of the chest abdomen and pelvis was done, which revealed a 4.4.2 3.5 cm left hilar mass, with widespread bone metastasis affecting the thoracic and lumbar spine, measuring up to 3 cm. She was therefore admitted for further management She denied any prior history of malignancy. The patient states that she smoked for about 10 years but quit in 1973. She denied any significant secondhand smoking exposure at least in the last 30 years. Review of Systems Constitutional: Reports weakness Eyes: denies blurred vision, denies pain Ears: deny: decreased hearing, ear discharge, earache, tinnitus Ears, nose, mouth and throat: Denies headache, Denies sore throat Cardiovascular: Denies chest pain, Denies shortness of breath Respiratory: Denies cough Gastrointestinal: Denies abdominal pain, Denies diarrhea, Denies nausea, Denies vomiting Genitourinary: Reports urge incontinence, Denies dysuria, Denies hematuria Menstruation: Reports postmenopausal Musculoskeletal: Reports low back pain, Reports shooting leg pain Musculoskeletal: right: hip stiffness Integumentary: Denies pruritus, Denies rash Neurological: Denies numbness, Denies weakness Psychiatric: Denies anxiety, Denies depression Endocrine: Denies fatigue, Denies weight change Hematologic/Lymphatic: Reports as per HPI Past Medical History Past Medical History: Hyperlipidemia, Hypertension, Pneumonia, Thyroid Disorder Additional Past Medical History / Comment(s): Back pain since May 2018. History of Any Multi-Drug Resistant Organisms: None Reported Past Surgical History: Orthopedic Surgery, Tonsillectomy Additional Past Surgical History / Comment(s): colonoscopy, left hip replacement Past Anesthesia/Blood Transfusion Reactions: No Reported Reaction Past Psychological History: No Psychological Hx Reported Smoking Status: Former smoker (<1 pack per day for 9 years - quit 1973) Past Alcohol Use History: Rare Past Drug Use History: None Reported - Past Family History Mother Additional Family Medical History / Comment(s): diabetes Medications and Allergies Home Medications Medication Instructions Recorded Confirmed Type Aspirin 81 mg PO HS 12/12/14 08/07/18 History Atenolol [Tenormin] 50 mg PO HS 12/12/14 08/07/18 History Calcium Carbonate/Vitamin D3 1 tab PO DAILY 12/12/14 08/07/18 History [Caltrate 600 + D Tablet] Losartan/Hydrochlorothiazide 1 tab PO DAILY 12/12/14 08/07/18 History [Hyzaar 100-25 Tablet] Multivitamin/Iron/Folic Acid 1 tab PO DAILY 12/12/14 08/07/18 History [Centrum Complete Multivit Tab] Simvastatin [Zocor] 40 mg PO HS 12/12/14 08/07/18 History Acetaminophen Tab [Tylenol Tab] 1,000 mg PO Q6HR PRN 08/07/18 08/07/18 History Flaxseed Oil 1,000 mg PO DAILY 08/07/18 08/07/18 History Allergies Allergy/AdvReac Type Severity Reaction Status Date / Time No Known Allergies Allergy Verified 08/07/18 15:22 Physical Exam Vitals: Vital Signs Temp Pulse Pulse Resp BP BP BP 08/08/18 11:50 97.6 F 68 14 136/69 08/08/18 08:30 14 08/08/18 08:00 72 16 08/08/18 05:52 98.2 F 72 16 139/65 08/07/18 22:44 98.4 F 71 16 137/71 08/07/18 21:18 99.1 F 85 16 137/74 08/07/18 19:00 77 16 143/73 08/07/18 18:00 70 16 143/73 Pulse Ox 08/08/18 11:50 96 08/08/18 08:30 08/08/18 08:00 08/08/18 05:52 95 08/07/18 22:44 96 08/07/18 21:18 99 08/07/18 19:00 94 L 08/07/18 18:00 96 Intake and Output 08/08/18 08/08/18 08/08/18 06:59 14:59 22:59 Intake Total 480 Balance 480 Intake: Oral 480 Other: Voiding Method Toilet Toilet # Voids 2 2 Weight 88.451 kg - Constitutional General appearance: no acute distress - EENT Eyes: EOMI, PERRLA ENT: hearing grossly normal, normal oropharynx - Neck Neck: no lymphadenopathy Thyroid: bilateral: normal size - Respiratory Respiratory: bilateral: CTA - Cardiovascular Rhythm: regular Heart sounds: normal: S1, S2 - Gastrointestinal General gastrointestinal: normal bowel sounds, soft - Integumentary Integumentary: normal - Neurologic Neurologic: CNII-XII intact - Musculoskeletal Musculoskeletal: strength equal bilaterally - Psychiatric Psychiatric: A&O x's 3, appropriate affect Results CBC & Chem 7: 08/08/18 09:47 08/08/18 09:47 Labs: Abnormal Lab Results - Last 24 Hours (Table) 08/07/18 08/07/18 08/07/18 Range/Units 16:45 16:45 16:45 WBC 11.9 H (3.8-10.6) k/uL Neutrophils # 9.7 H (1.3-7.7) k/uL APTT (22.0-30.0) sec Sodium 136 L (137-145) mmol/L BUN 34 H (7-17) mg/dL Creatinine 1.28 H (0.52-1.04) mg/dL Glucose 126 H (74-99) mg/dL Alkaline Phosphatase 146 H (38-126) U/L Total Creatine Kinase 29 L (30-135) U/L 08/07/18 08/08/18 08/08/18 Range/Units 16:45 09:47 09:47 WBC 13.1 H (3.8-10.6) k/uL Neutrophils # 8.3 H (1.3-7.7) k/uL APTT 21.3 L (22.0-30.0) sec Sodium 136 L (137-145) mmol/L BUN 29 H (7-17) mg/dL Creatinine 1.10 H (0.52-1.04) mg/dL Glucose 120 H (74-99) mg/dL Alkaline Phosphatase 145 H (38-126) U/L Total Creatine Kinase (30-135) U/L Chest x-ray: report reviewed CT scan - abdomen: report reviewed CT scan - chest: report reviewed CT scan - pelvis: report reviewed Assessment and Plan (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 The results of the CT scans and implications were discussed in detail with her. She was advised that the clinical picture is most suggestive of a metastatic malignancy from a lung primary. Other etiologies are not ruled out. - The pt will need a tissue diagnosis. Pulmonary consult to target the lung lesion would be recommended. Case was d/w the admitting service to request the same - ASA will be held in view of upcoming biopsy - The pt has no evidence of neurologic compromise ( other than urge type urinary incontinence, which is non specific) so far. As that is a significant concern gong forward, I will check MRI spinal survery. Decadron will be initiated for now, till MRI is completed. Radiation Oncology was consulted and case d/w with them, as it is anticipated that she will most likely need palliative RT - Continue current pain regimen with IV morphine. Depending on her requirements , she will be transitioned to a suitable outpt regimen - Monitor for any evidence of neurologic compromise Current Visit: Yes Status: Acute Code(s): C79.51 - SECONDARY MALIGNANT NEOPLASM OF BONE SNOMED Code(s): 01827587 (2) Lung mass Narrative/Plan: As above. If the mass is not felt to be an appropriate target per Pulmonary, the bone lesions will be evaluated for the same Current Visit: Yes Status: Acute Code(s): R91.8 - OTHER NONSPECIFIC ABNORMAL FINDING OF LUNG FIELD SNOMED Code(s): 058025058
[2018-08-08 20:55] VITALS: RESP 16
[2018-08-08] MEDS ORDERED: ASPIRIN 81 MG PO SCH (21:00)
[2018-08-08] MEDS: ATENOLOL 50 MG TAB PO SCH (21:55)
[2018-08-09] MEDS ORDERED: HYDROmorphone 1 MG/ML 1 ML SYRINGE IVP PRN (05:52)
[2018-08-09 07:21] LABS: Basophils % (A) 0 %; Eosinophils % (A) 0 %; HCT 35.4 % (34.0-46.0); HGB 11.9 gm/dL (11.4-16.0); Lymphocytes # (A) 1.3 k/uL (1.0-4.8); Lymphocytes % (A) 15 %; MCH 30.3 pg (25.0-35.0); MCHC 33.6 g/dL (31.0-37.0); MCV 90.2 fL (80.0-100.0); Mean Platelet Volume 6.6; Monocytes # (A) 0.4 k/uL (0-1.0); Monocytes % (A) 5 %; Neutrophils # (A) 6.7 k/uL (1.3-7.7); Neutrophils % (A) 79 %; Platelet Count 326 k/uL (150-450); RBC 3.92 m/uL (3.80-5.40); WBC 8.5 k/uL (3.8-10.6)
[2018-08-09 07:36] LABS: Albumin 3.5 g/dL (3.5-5.0); Calcium 9.3 mg/dL (8.4-10.2); Potassium 4.7 mmol/L (3.5-5.1); Total Bilirubin 0.4 mg/dL (0.2-1.3)
[2018-08-09] MEDS: DEXAMETHASONE SOD PHOSPHATE 4 MG/ML 1 ML VIAL IV SCH ×3 (08:47→23:53)
[2018-08-09] MEDS: LOSARTAN-HCTZ 50-12.5 MG 1 EACH TAB PO SCH (08:48)
[2018-08-09] MEDS: CALCIUM CARB-VIT D 500MG-200UN 1 EACH TAB PO SCH (08:48)
[2018-08-09] MEDS: FAMOTIDINE 20 MG TAB PO SCH (08:48)
--- NOTE | 2018-08-09 10:45 | P.PN ---
Subjective Progress Note Date: 08/09/18 This is a 73-year-old patient of Dr. Vides. Patient presented to the emergency room with complaints of increased right lower back pain. Patient states the pain has been occurring for quite some time but has significantly become worse over the past few weeks. Patient to go to her PCP and get a steroid injection that provided some relief. That time a chest x-ray was completed and she was told she had pneumonia and was started on antibiotics. Over the weekend pain became increasingly worse and patient presented to the emergency room. CT of chest abdomen and pelvis completed showing a large left upper lobe bronchogenic mass with left suprahilar adenonpathy. Numerous osseous metastases lesions. Patient has a known past medical history of Hyperlipidemia, hypertension and thyroid disorder. Patient denies any cancer history. Patient does state she smoked back in the 70s but quit after a few years. Patient denies any recent weight loss, loss of appetite or chills. Dr. Leigh per oncology consulted. Discussed case with Dr. leigh planning to do lung biopsy. Pulmonary service is consulted. Patient currently getting morphine for pain control at this time. Patient does state that pain is adequately controlled. At this time patient denies chest pain or shortness of breath. Patient denies nausea vomiting or diarrhea. Patient denies any urinary burning or frequency. On 08/09/2018 patient remains alert and oriented 3. Patient is resting comfortably in bed. At this time patient states she has adequate pain control with the Gilbert. Patient is experiencing slight pain in her right lower back. Patient denies chest pain or shortness of breath. Denies nausea vomiting or diarrhea. Patient to get or prosecute with lung biopsy today. Patient did get 2 out of for MRI completed staging per Dr. Leigh. Objective - Vital Signs Vital signs: Vital Signs Temp 97.8 F 08/09/18 07:00 Pulse 74 08/09/18 07:00 Resp 16 08/09/18 07:00 BP 130/77 08/09/18 07:00 Pulse Ox 98 08/09/18 07:00 Intake & Output 08/08/18 08/09/18 08/09/18 18:59 06:59 18:59 Other: Voiding Method Toilet Toilet # Voids 2 1 - Exam Head normocephalic Neck supple Lungs clear to auscultation bilaterally no wheezing or crackles Heart regular rate and rhythm S1-S2, no rub or gallop Abdomen is soft nontender nondistended positive bowel sounds no hepatosplenomegaly Extremities no edema Neuro alert and orientated to 3 - Labs CBC & Chem 7: 08/09/18 06:34 08/09/18 06:34 Labs: Abnormal Lab Results - Last 24 Hours (Table) 08/09/18 Range/Units 06:34 Chloride 109 H (98-107) mmol/L BUN 23 H (7-17) mg/dL Glucose 133 H (74-99) mg/dL Alkaline Phosphatase 134 H (38-126) U/L Total Protein 6.0 L (6.3-8.2) g/dL Assessment and Plan Assessment: 1. Spinal skeletal pain secondary to suspected metastasis with numerous lesions throughout thoracic spine. Chest abdomen and pelvis CT completed showing large left upper lobe bronchiogenic mass with left suprahilar adenopathy. Numerous osseous metastases lesions. Dr. Leigh has been consulted for oncology services. Will discuss case with Dr. leigh planning possible lung biopsy. Lovenox currently on hold. Patient to complete MRI for staging per Dr. leigh. Patient currently on Decadron per oncology services Gilbert and morphine for pain control 2. Bronchiogenic soft tissue density mass measuring 4 x 5 x 5 times 2. located within the left upper lobe anteriorly at the level of the upper hilum suspected bronchogenic carcinoma with metastasis. Per pulmonary service is planning bronchoscopy with biopsy today. 3. History of tobacco use. Patient states she smoked in the 70s but quit when she became with her first daughter only smoked for a couple years 4. History of hyperlipidemia 5. History of essential hypertension 6. History of thyroid disorder 7. Acute kidney injury. Initial creatinine 1.28 and bun 34. Continue to monitor closely 8. Elevated liver enzymes. Alkaline phosphatase 146. We'll continue to monitor closely Tylenol on hold 9. Leukocytosis. White Blood cell 13.1. Patient did state she got steroid injection by her PCP on Tuesday. Patient also on Decadron per oncology services. UA negative. We'll continue to monitor closely at this time. White Blood cell improving to 8.5 DVT prophylaxis SCDs and Lovenox currently on hold for lung biopsy. GI prophylaxis Pepcid I performed an examination of the patient and discussed their management with the Nurse Practitioner. I have reviewed the Nurse Practitioner's notes and agree with the documented findings and plan of care
--- NOTE | 2018-08-09 13:00 | P.PN ---
Subjective Progress Note Date: 08/09/18 Principal diagnosis: Skeletal pain secondary to suspected metastasis with numerous lesions throughout the thoracic spine. This is a very pleasant 73-year-old female patient who follows with Dr. Vides as her primary care physician. She has a history of hypertension, hyperlipidemia, left hip replacement. She has a very remote history of smoking. She had been having ongoing issues with right lower back pain. She had been seen by her PCP who performed a chest x-ray and she was told she had pneumonia and was started on steroids and Bactrim. She felt the steroids did give her some relief initially. The pain has progressively gotten worse and she presented to the emergency room yesterday afternoon for pain control. A chest x-ray revealed abnormality increased opacity noted in the perihilar left upper lobe anteriorly. A few other scattered shadows were also noted. Computed tomography scan revealed a 4.5 x 3.5 x 2.2 cm bronchogenic soft tissue density located in left upper lobe anteriorly at the left upper hilum. There is contiguous left suprahilar adenopathy. There is also noted numerous spinal metastases measuring 3 cm in diameter throughout the thoracic spine. The patient has no previous history of cancer. No pulmonary complaints. No hemoptysis. No weight loss. No shortness of breath. Her pain is improved today compared to yesterday she is being treated with morphine and [place]. She has been initiated on Decadron. MRI of the cervical spine, brain, thoracic and lumbar spines are pending. She had been seen and evaluated by medical oncology and radiation oncology. We have been consulted for bronchoscopy with biopsy for diagnosis. The patient is seen again today August 09 2018 in follow-up on the surgical floor. She is currently awake and alert in no acute distress. Her pain is better controlled. She denies any shortness of breath, cough or congestion. No fever chills or night sweats. She is maintaining good O2 saturations in the mid 90s on room air. She's been afebrile. Hemodynamically stable. White count 8.5. Hemoglobin 11.9. Creatinine 0.93. The plan is for bronchoscopy with biopsies of the left upper lobe today. MRI of the cervical spine revealed osseous metastatic lesions involving T5, T6, T12 and L2 vertebrae. Some bony destruction most prominent in T6 vertebrae. There is slight posterior retropulsion of T5 and right T12 vertebrae present in the anterior spinal canal. No osseous metastatic disease to the cervical spine. Objective - Vital Signs Vital signs: Vital Signs Temp 98.2 F 08/09/18 12:10 Pulse 79 08/09/18 12:10 Resp 16 08/09/18 12:10 BP 133/63 08/09/18 12:10 Pulse Ox 95 08/09/18 12:10 Intake & Output 08/08/18 08/09/18 08/09/18 18:59 06:59 18:59 Other: Voiding Method Toilet Toilet # Voids 2 1 - Exam - Constitutional General appearance: average body habitus, cooperative, no acute distress - EENT Eyes: EOMI, PERRLA ENT: hearing grossly normal Ears: bilateral: normal - Neck Neck: normal ROM Carotids: bilateral: upstroke normal Thyroid: bilateral: normal size - Respiratory Respiratory: bilateral: CTA - Cardiovascular Rhythm: regular Heart sounds: normal: S1, S2 - Gastrointestinal General gastrointestinal: normal bowel sounds - Integumentary Integumentary: normal turgor - Neurologic Neurologic: CNII-XII intact - Musculoskeletal Musculoskeletal: generalized weakness, back and right hip pain - Psychiatric Psychiatric: A&O x's 3, appropriate affect, intact judgment & insight - Labs CBC & Chem 7: 08/09/18 06:34 08/09/18 06:34 Labs: Abnormal Lab Results - Last 24 Hours (Table) 08/09/18 Range/Units 06:34 Chloride 109 H (98-107) mmol/L BUN 23 H (7-17) mg/dL Glucose 133 H (74-99) mg/dL Alkaline Phosphatase 134 H (38-126) U/L Total Protein 6.0 L (6.3-8.2) g/dL Assessment and Plan Assessment: Impression: #1 Spinal skeletal pain secondary to suspected metastasis with numerous lesions throughout the thoracic spine. There are numerous skeletal osteolytic lesions also noted in the right femoral head with several measuring 3 cm in diameter. MRI reveals osseous metastatic lesions involving T5, T6, T12 and L2 vertebrae. There is some bony destruction most prominent T6 vertebrae as well. Slight posterior retropulsion of T5 and right T12 vertebrae are present in the anterior spinal canal. #2 Bronchogenic soft tissue density mass measuring 4.5 x 3.5 x 2.2 cm located within the left upper lobe anteriorly at the level of the upper hilum. There is left suprahilar adenopathy as well. Suspect primary bronchogenic carcinoma with metastasis. Plan is for bronchoscopy with biopsy today. #3 Remote history of chronic tobacco dependence. #4 Hypertension. #5 Hyperlipidemia. Plan: The patient was seen and evaluated by Dr. Wahl. The plan is for bronchoscopy with biopsy of the left upper lobe mass today. Await final pathology report. We will continue to follow and make further recommendations based on her clinical status. I, the cosigning physician, performed a history & physical examination of the patient. Lungs sounds are clear. Maintaining good O2 saturations in the 90s on room air. I discussed the assessment and plan of care with my nurse practitioner, Citlali Arceo. I attest to the above note as dictated by her.
[2018-08-09] MEDS: MULTIVITAMINS, THERA 1 EACH TAB PO SCH (13:02)
[2018-08-09] MEDS ORDERED: LACTATED RINGERS 1,000 ML IV ONE (13:14)
[2018-08-09] MEDS ORDERED: PROPOFOL 10 MG/ML 20 ML VIAL IV ONE (13:17)
[2018-08-09] MEDS ORDERED: LIDOCAINE 2% INJ 20 MG/ML INTRATRACH ONE (13:42)
[2018-08-09] MEDS: LACTATED RINGERS 1,000 ML IV SCH (13:52)
--- NOTE | 2018-08-09 14:31 | XR ---
EXAMINATION TYPE: XR chest 1V portable DATE OF EXAM: 08/09/2018 COMPARISON: 08/07/2018 HISTORY: Post bronchoscopy TECHNIQUE: Single frontal view of the chest is obtained. FINDINGS: No sizable pneumothorax. Left hilar prominence noted. Heart size stable. No sizable pleura l effusion. No overt failure. Underlying COPD is affected. IMPRESSION: No definite pneumothorax. Persistent left hilar prominence suggestive of mass or adenopa thy..
--- NOTE | 2018-08-09 14:34 | FL ---
EXAMINATION TYPE: FL bronchoscopy DATE OF EXAM: 08/09/2018 COMPARISON: NONE HISTORY: Fluoroscopy time TECHNIQUE: Fluoroscopy. FINDINGS: Fluoroscopic guidance was provided 46 seconds. IMPRESSION: As Above.
--- NOTE | 2018-08-09 16:32 | OP ---
OPERATIVE REPORT PROCEDURE: Bronchoscopy and transbronchial biopsy of left upper lobe. PREOPERATIVE DIAGNOSIS: Left upper lobe mass. POSTOPERATIVE DIAGNOSIS: Left upper lobe mass. ANESTHESIA: IV conscious sedation. DESCRIPTION OF PROCEDURE: The patient was prepared according to the bronchoscopy protocol. Oxygen was applied via nasal cannula, and we monitored her oxygen saturation. Blood pressure was intermittently monitored, and cardiac rhythm was continuously monitored. After adequate IV conscious sedation, lidocaine was instilled into the right naris, and the bronchoscope was advanced through the right naris down to the area of the vocal cords. The vocal cords were visualized and noted to be patent. Lidocaine was applied over the vocal cords, and the bronchoscope was advanced further down to the trachea. A thorough examination was done of the trachea, jessica, right upper lobe, right middle lobe, right lower lobe, left upper lobe, lingula, and left lower lobe. There was evidence of narrowing of the anterior segment of the left upper lobe. There was no evidence of any endobronchial tumors noted. Using fluoroscopy, brushings were done from the anterior segment of the left upper lobe, then washings from the left upper lobe were also done. Multiple transbronchial biopsies were done from different subsegments of the anterior left upper lobe segment. Multiple biopsies were sent for diagnostic studies. Brushings were also sent for diagnostic studies. Procedure was well tolerated; no evidence of any immediate complications. Minimal blood loss was noted; less than 10 mL of blood loss during the whole procedure. Chest x-ray postoperatively showed no evidence of complications. MMODL / IJN: [id number] /
[2018-08-09] MEDS: HYDROcodone/APAP 5-325MG 1 EACH TAB PO PRN (18:53)
--- NOTE | 2018-08-09 19:08 | MR ---
EXAMINATION TYPE: MR brain/lspine wo/w con DATE OF EXAM: 08/09/2018 COMPARISON: None HISTORY: Lung mass, spinal mets CONTRAST: Standard multiplanar, multisequence MRI departmental protocol utilizing 9 mL intravenous Gadavist emili olinium contrast. FINDINGS: There is mild cerebral cortical atrophy. There is no mass effect nor midline shift. There i s no sign of intracranial hemorrhage. There are scattered white matter high signal foci on the T2 and FLAIR images that measure up to 4 mm. Total numbers less than 10. The contrast images show numerous small nodular foci of enhancement in the cerebellum and cerebral hemispheres. There is normal alignment of the lumbar vertebra. On the T1 and T2 images there is abnormal decreased signal in multiple lumbar vertebral bodies as well as S1. There is involvement of S1, left side of L 5, entire left side of L3 vertebral body, the right side of L2 vertebral body, the right side of T12 vertebral body. This is consistent with multiple metastatic foci. Contrast images show some pathologi c enhancement of the lesions. There is no spinal stenosis. There is no compression fracture. Lumbar n erve roots appear normal. IMPRESSION: Numerous lesions in the lumbar and sacral vertebral bodies consistent with metastatic disease. No com pression fracture. There are scattered white matter foci in the brain consistent with small vessel ischemia. There are tiny nodular enhancing foci in the brain involving the right cerebellar vermis, right occip ital lobe medial right anterior occipital lobe left cerebellar hemisphere in the superior cortex, rig ht posterior cerebellar hemisphere. These measure up to 5 mm and are suggestive of metastatic disease . There is single cortical enhancing focus right posterior frontal lobe convexity and left parietal c onvexity also consistent with metastatic disease.
--- NOTE | 2018-08-09 20:14 | P.PN ---
Subjective Progress Note Date: 08/09/18 Principal diagnosis: new metastatic malignant picture patient seen and evaluated at follow-up, no acute complaints overnight Objective - Vital Signs Vital signs: Vital Signs Temp 98.2 F 08/09/18 12:10 Pulse 95 08/09/18 14:05 Resp 16 08/09/18 14:05 BP 112/56 08/09/18 14:05 Pulse Ox 96 08/09/18 14:05 Intake & Output 08/09/18 08/09/18 08/10/18 06:59 18:59 06:59 Intake Total 320 Balance 320 Intake: IV 300 Intake, IV Titration 20 Amount Lactated Ringers 1,000 ml 20 @ 20 mls/hr IV .Q24H [facility] Rx#:[id number] Other: Voiding Method Toilet # Voids 1 - Exam - Constitutional General appearance: no acute distress - EENT Eyes: EOMI, PERRLA ENT: hearing grossly normal, normal oropharynx - Neck Neck: no lymphadenopathy Thyroid: bilateral: normal size - Respiratory Respiratory: bilateral: CTA - Cardiovascular Rhythm: regular Heart sounds: normal: S1, S2 - Gastrointestinal General gastrointestinal: normal bowel sounds, soft - Integumentary Integumentary: normal - Neurologic Neurologic: CNII-XII intact - Musculoskeletal Musculoskeletal: strength equal bilaterally - Psychiatric Psychiatric: A&O x's 3, appropriate affect - Labs CBC & Chem 7: 08/09/18 06:34 08/09/18 06:34 Labs: Abnormal Lab Results - Last 24 Hours (Table) 08/09/18 Range/Units 06:34 Chloride 109 H (98-107) mmol/L BUN 23 H (7-17) mg/dL Glucose 133 H (74-99) mg/dL Alkaline Phosphatase 134 H (38-126) U/L Total Protein 6.0 L (6.3-8.2) g/dL Assessment and Plan Plan: Chest x-ray: report reviewed CT scan - abdomen: report reviewed CT scan - chest: report reviewed CT scan - pelvis: report reviewed MRI Cervical, THoracic, Lumbar and BRain reviewed Assessment and Plan (1) Metastatic cancer to spine Narrative/Plan: - Plan for patient to undergo biopsy of ROSEMARY mass today via bronchoscopy by pulmonary and will await results - The pt has no evidence of neurologic compromise ( other than urge type urinary incontinence, which is non specific) so far. As that is a significant concern gong forward, I will check MRI spinal survery. - Continue on PPI and Decadron - MRi has been reviewed and appears to be many small cerebellar lesions 5mm or less noted on MRI suggestive of malignancy metastatic, Radiation Oncology is following - We will anticipate palliative radiation options and continue current pain regimen with IV morphine. - Await pathology from today and Depending on her requirements, she will be transitioned to a suitable outpt regimen - Monitor for any evidence of neurologic compromise Current Visit: Yes Status: Acute Code(s): C79.51 - SECONDARY MALIGNANT NEOPLASM OF BONE SNOMED Code(s): 13217441 (2) Lung mass Narrative/Plan: Further recs to follow when pathology results
[2018-08-09] MEDS: ATENOLOL 50 MG TAB PO SCH (20:44)
[2018-08-09] MEDS: PANTOPRAZOLE 40 MG TABLET PO SCH (20:44)
[2018-08-10] MEDS: LACTATED RINGERS 1,000 ML IV SCH (04:14)
[2018-08-10] MEDS: DEXAMETHASONE SOD PHOSPHATE 4 MG/ML 1 ML VIAL IV SCH ×2 (07:56→17:19)
[2018-08-10] MEDS: HYDROcodone/APAP 5-325MG 1 EACH TAB PO PRN ×2 (07:57→17:16)
[2018-08-10] MEDS: LOSARTAN-HCTZ 50-12.5 MG 1 EACH TAB PO SCH (07:58)
[2018-08-10] MEDS: PANTOPRAZOLE 40 MG TABLET PO SCH (07:58)
[2018-08-10] MEDS: FAMOTIDINE 20 MG TAB PO SCH (07:59)
[2018-08-10] MEDS: CALCIUM CARB-VIT D 500MG-200UN 1 EACH TAB PO SCH (07:59)
[2018-08-10] MEDS: MULTIVITAMINS, THERA 1 EACH TAB PO SCH (07:59)
[2018-08-10 08:34] LABS: Basophils % (A) 0 %; Eosinophils % (A) 0 %; HCT 38.4 % (34.0-46.0); HGB 12.3 gm/dL (11.4-16.0); Lymphocytes # (A) 1.9 k/uL (1.0-4.8); Lymphocytes % (A) 14 %; MCH 29.6 pg (25.0-35.0); MCV 92.5 fL (80.0-100.0); Mean Platelet Volume 6.8; Monocytes # (A) 0.6 k/uL (0-1.0); Monocytes % (A) 4 %; Neutrophils # (A) 10.8 k/uL (1.3-7.7); Neutrophils % (A) 81 %; Platelet Count 335 k/uL (150-450); RBC 4.15 m/uL (3.80-5.40); WBC 13.4 k/uL (3.8-10.6)
[2018-08-10 08:44] LABS: Albumin 3.8 g/dL (3.5-5.0); Calcium 9.7 mg/dL (8.4-10.2); Potassium 4.6 mmol/L (3.5-5.1); Total Bilirubin 0.6 mg/dL (0.2-1.3); Total Protein 6.5 g/dL (6.3-8.2)
[2018-08-10] MEDS ORDERED: DOCUSATE 100 MG CAP PO SCH (09:15)
[2018-08-10] MEDS ORDERED: SODIUM CHLORIDE 0.9% 250 ML with PAMIDRONATE 90 MG IV ONE ×2 (10:18)
--- NOTE | 2018-08-10 11:06 | P.PN ---
Subjective Progress Note Date: 08/10/18 Principal diagnosis: new metastatic malignant picture patient seen and evaluated at follow-up, no acute complaints overnight We discussed the new diagnosis and results of brain imaging. Objective - Vital Signs Vital signs: Vital Signs Temp 97.9 F 08/10/18 04:55 Pulse 81 08/10/18 04:55 Resp 16 08/10/18 04:55 BP 121/67 08/10/18 04:55 Pulse Ox 95 08/10/18 04:55 Intake & Output 08/09/18 08/10/18 08/10/18 18:59 06:59 18:59 Intake Total 320 320 Balance 320 320 Intake: IV 300 Intake, IV Titration 20 Amount Lactated Ringers 1,000 ml 20 @ 20 mls/hr IV .Q24H [facility] Rx#:[id number] Oral 320 Other: Voiding Method Toilet Toilet # Voids 3 - Exam - Constitutional General appearance: no acute distress - EENT Eyes: EOMI, PERRLA ENT: hearing grossly normal, normal oropharynx - Neck Neck: no lymphadenopathy Thyroid: bilateral: normal size - Respiratory Respiratory: bilateral: CTA - Cardiovascular Rhythm: regular Heart sounds: normal: S1, S2 - Gastrointestinal General gastrointestinal: normal bowel sounds, soft - Integumentary Integumentary: normal - Neurologic Neurologic: CNII-XII intact - Musculoskeletal Musculoskeletal: strength equal bilaterally - Psychiatric Psychiatric: A&O x's 3, appropriate affect - Labs CBC & Chem 7: 08/10/18 07:58 08/10/18 07:58 Labs: Abnormal Lab Results - Last 24 Hours (Table) 08/10/18 08/10/18 Range/Units 07:58 07:58 WBC 13.4 H (3.8-10.6) k/uL Neutrophils # 10.8 H (1.3-7.7) k/uL BUN 22 H (7-17) mg/dL Glucose 119 H (74-99) mg/dL Alkaline Phosphatase 148 H (38-126) U/L Microbiology - Last 24 Hours (Table) 08/09/18 13:30 Gram Stain - Preliminary Bronchial Brushings - Left Bronchial Washings Culture - Preliminary Assessment and Plan Plan: Chest x-ray: report reviewed CT scan - abdomen: report reviewed CT scan - chest: report reviewed CT scan - pelvis: report reviewed MRI Cervical, THoracic, Lumbar and BRain reviewed Assessment and Plan (1) Metastatic cancer to spine Narrative/Plan: - Plan for patient to undergo biopsy of ROSEMARY mass today via bronchoscopy by pulmonary and will await results - The pt has no evidence of neurologic compromise ( other than urge type urinary incontinence, which is non specific) so far. As that is a significant concern gong forward, I will check MRI spinal survery. - Continue on PPI and Decadron - MRi has been reviewed and appears to be many small cerebellar lesions 5mm or less noted on MRI suggestive of malignancy metastatic, Radiation Oncology is following - We will anticipate palliative radiation options and continue current pain regimen with IV morphine. - Await pathology from today and Depending on her requirements, she will be transitioned to a suitable outpt regimen - Monitor for any evidence of neurologic compromise Current Visit: Yes Status: Acute Code(s): C79.51 - SECONDARY MALIGNANT NEOPLASM OF BONE SNOMED Code(s): 57320284 (2) Lung mass Narrative/Plan: Further recs to follow when pathology results - Discussed in detail with Dr. Victor and will plan to begin Palliative radiation to hip and possible spine, will await final path before treating brain. But plan to treat after bone first. - Discharge on weaning dex per Rad onc, PPI - Greater than 30 minutes discussing plan and providing emotional suport at todays visit Physician Attestation: I have completed the full history and physical of this patient and agree with above dictation by Erum Lipscomb NP. Dictated as a scribe
[2018-08-10 12:43] VITALS: BP 138/70; PULSE 88; TEMP 98
--- NOTE | 2018-08-10 13:47 | P.DS ---
Providers Date of admission: 08/07/18 20:18 Expected date of discharge: 08/10/18 Attending physician: Con Stevenson Consults: 08/07/18 20:18 Consult Physician Routine Consulting Provider: Khanh Leigh Consult Reason/Comments: ca Do you want consulting provider notified?: Yes 08/08/18 09:40 Consult Physician Routine Consulting Provider: Jacob Victor Consult Reason/Comments: bone mets, pain Do you want consulting provider notified?: Yes 08/08/18 10:24 Consult Physician Routine Consulting Provider: Caleb Wahl Consult Reason/Comments: lung biopsy Do you want consulting provider notified?: Yes [facility] care [facility] Course: Discharge diagnosis 1. Spinal skeletal pain secondary to suspected metastasis with numerous lesions throughout thoracic spine. Chest abdomen and pelvis CT completed showing large left upper lobe bronchiogenic mass with left suprahilar adenopathy. Numerous osseous metastases lesions. Dr. Leigh has been consulted for oncology services. Will discuss case with Dr. leigh planning possible lung biopsy. Lovenox currently on hold. Patient to complete MRI for staging per Dr. leigh. Patient currently on Decadron per oncology services. MRIs completed and reviewed per oncology services. Patient seen by radiologist to receive palliative radiation to spine and right hip outpatient. Patient to follow-up with oncology services for further plan of care 2. Bronchiogenic soft tissue density mass measuring 4 x 5 x 5 times 2. located within the left upper lobe anteriorly at the level of the upper hilum suspected bronchogenic carcinoma with metastasis. Bronchoscopy with biopsies completed. Biopsies currently pending. Discussed case with cardiology services patient has been cleared for discharge from oncology standpoint will follow-up outpatient for further plan of care. Patient to initiate palliative radiation outpatient. 3. History of tobacco use. Patient states she smoked in the 70s but quit when she became with her first daughter only smoked for a couple years 4. History of hyperlipidemia 5. History of essential hypertension 6. History of thyroid disorder 7. Acute kidney injury. Initial creatinine 1.28 and bun 34. Continue to monitor closely. Creatinine improving to 0.91 and bun 22 8. Elevated liver enzymes. Alkaline phosphatase 146. 9. Leukocytosis. White Blood cell 13.1. Patient did state she got steroid injection by her PCP on Tuesday. UA negative. We'll continue to monitor closely at this time. White Blood cell 13.4. Patient is on Decadron and will be DC'd on Decadron per oncology services Hospital course This is a 73-year-old patient of Dr. Vides. Patient presented to the emergency room with complaints of increased right lower back pain. Patient states the pain has been occurring for quite some time but has significantly become worse over the past few weeks. Patient to go to her PCP and get a steroid injection that provided some relief. That time a chest x-ray was completed and she was told she had pneumonia and was started on antibiotics. Over the weekend pain became increasingly worse and patient presented to the emergency room. CT of chest abdomen and pelvis completed showing a large left upper lobe bronchogenic mass with left suprahilar adenonpathy. Numerous osseous metastases lesions. Patient has a known past medical history of Hyperlipidemia, hypertension and thyroid disorder. Patient denies any cancer history. Patient does state she smoked back in the 70s but quit after a few years. Patient denies any recent weight loss, loss of appetite or chills. Dr. Leigh per oncology consulted. Discussed case with Dr. leigh planning to do lung biopsy. Pulmonary service is consulted. Patient currently getting morphine for pain control at this time. Patient does state that pain is adequately controlled. At this time patient denies chest pain or shortness of breath. Patient denies nausea vomiting or diarrhea. Patient denies any urinary burning or frequency. On 08/09/2018 patient remains alert and oriented 3. Patient is resting comfortably in bed. At this time patient states she has adequate pain control with the Sarita. Patient is experiencing slight pain in her right lower back. Patient denies chest pain or shortness of breath. Denies nausea vomiting or diarrhea. Patient to get or prosecute with lung biopsy today. Patient did get 2 out of for MRI completed staging per Dr. Leigh. On 08/10/2018 patient is resting comfortably in bed alert and oriented 3. Patient is eager to go home. Patient states pain is adequately controlled at this time with the Sarita pain medication. Discussed case in depth sleep with oncology services. Patient to start palliative radiation to hip and spine outpatient per oncology recommendation. Awaiting final pathology from bronchoscopy and biopsy. She advised to follow-up closely with PCP and oncology services for further plan of care. Patient advised that if any issues arise patient is to return to emergency room. I performed an examination of the patient and discussed their management with the Nurse Practitioner. I have reviewed the Nurse Practitioner's notes and agree with the documented findings and plan of care Patient Condition at Discharge: Stable Plan - Discharge Summary Discharge Rx Participant: No New Discharge Prescriptions: New Dexamethasone 4 mg PO TID #90 tablet Pantoprazole [Protonix] 40 mg PO AC-BID #60 tablet. HYDROcodone/APAP 5-325MG [Sarita 5-325] 1 each PO Q6HR PRN 3 Days #12 tab PRN Reason: Moderate Pain Continue Aspirin 81 mg PO HS Multivitamin/Iron/Folic Acid [Centrum Complete Multivit Tab] 1 tab PO DAILY Calcium Carbonate/Vitamin D3 [Caltrate 600 Plus D3 Tablet] 1 tab PO DAILY Simvastatin [Zocor] 40 mg PO HS Losartan/Hydrochlorothiazide [Hyzaar 100-25 Tablet] 1 tab PO DAILY Atenolol [Tenormin] 50 mg PO HS Flaxseed Oil 1,000 mg PO DAILY Acetaminophen Tab [Tylenol] 1,000 mg PO Q6HR PRN PRN Reason: Pain Discharge Medication List Aspirin 81 mg PO HS 12/12/14 [History] Atenolol [Tenormin] 50 mg PO HS 12/12/14 [History] Calcium Carbonate/Vitamin D3 [Caltrate 600 Plus D3 Tablet] 1 tab PO DAILY [History] Losartan/Hydrochlorothiazide [Hyzaar 100-25 Tablet] 1 tab PO DAILY 12/12/14 [ History] Multivitamin/Iron/Folic Acid [Centrum Complete Multivit Tab] 1 tab PO DAILY 02/21 [History] Simvastatin [Zocor] 40 mg PO HS 12/12/14 [History] Acetaminophen Tab [Tylenol] 1,000 mg PO Q6HR PRN 08/07/18 [History] Flaxseed Oil 1,000 mg PO DAILY 08/07/18 [History] Dexamethasone 4 mg PO TID #90 tablet 08/10/18 [Rx] HYDROcodone/APAP 5-325MG [Sarita 5-325] 1 each PO Q6HR PRN 3 Days #12 tab [Rx] Pantoprazole [Protonix] 40 mg PO AC-BID #60 tablet. 08/10/18 [Rx] Follow up Appointment(s)/Referral(s): Khanh Leigh MD [STAFF PHYSICIAN] - 10 Days Laming,Kanika, MD [Primary Care Provider] - 1-2 days Jacob Victor MD [STAFF PHYSICIAN] - 08/11/18 1:00 pm (Radiation Oncology)
--- NOTE | 2018-08-10 18:49 | P.PN ---
Subjective Progress Note Date: 08/10/18 Principal diagnosis: Spinal, skeletal pain, suspected metastasis with numerous lesions, bronchogenic soft tissue density, suspected primary bronchogenic carcinoma with metastasis This is a very pleasant 73-year-old female patient who follows with Dr. Vides as her primary care physician. She has a history of hypertension, hyperlipidemia, left hip replacement. She has a very remote history of smoking. She had been having ongoing issues with right lower back pain. She had been seen by her PCP who performed a chest x-ray and she was told she had pneumonia and was started on steroids and Bactrim. She felt the steroids did give her some relief initially. The pain has progressively gotten worse and she presented to the emergency room yesterday afternoon for pain control. A chest x-ray revealed abnormality increased opacity noted in the perihilar left upper lobe anteriorly. A few other scattered shadows were also noted. Computed tomography scan revealed a 4.5 x 3.5 x 2.2 cm bronchogenic soft tissue density located in left upper lobe anteriorly at the left upper hilum. There is contiguous left suprahilar adenopathy. There is also noted numerous spinal metastases measuring 3 cm in diameter throughout the thoracic spine. The patient has no previous history of cancer. No pulmonary complaints. No hemoptysis. No weight loss. No shortness of breath. Her pain is improved today compared to yesterday she is being treated with morphine and [place]. She has been initiated on Decadron. MRI of the cervical spine, brain, thoracic and lumbar spines are pending. She had been seen and evaluated by medical oncology and radiation oncology. We have been consulted for bronchoscopy with biopsy for diagnosis. The patient is seen again today August 09 2018 in follow-up on the surgical floor. She is currently awake and alert in no acute distress. Her pain is better controlled. She denies any shortness of breath, cough or congestion. No fever chills or night sweats. She is maintaining good O2 saturations in the mid 90s on room air. She's been afebrile. Hemodynamically stable. White count 8.5. Hemoglobin 11.9. Creatinine 0.93. The plan is for bronchoscopy with biopsies of the left upper lobe today. MRI of the cervical spine revealed osseous metastatic lesions involving T5, T6, T12 and L2 vertebrae. Some bony destruction most prominent in T6 vertebrae. There is slight posterior retropulsion of T5 and right T12 vertebrae present in the anterior spinal canal. No osseous metastatic disease to the cervical spine. On 08/10/2018 patient seen in follow-up on oncology floor. She is status post bronchoscopy with biopsy left upper lobe lesion on 08/09/2018. Biopsy results are pending. Patient is calm and comfortable, denies any shortness of breath. Her pulse ox 95% on room air, afebrile, hemodynamically stable, lung sounds are diminished. The patient has an appointment with radiation oncology, and she supposed to start radiation treatments starting tomorrow to her left hip, spine and brain. Today's lab work has been noted, and is relatively unremarkable. From pulmonary perspective patient can be followed up in regards to the biopsy results on outpatient basis, patient is being discharged home today Objective - Vital Signs Vital signs: Vital Signs Temp 98 F 08/10/18 12:43 Pulse 88 08/10/18 12:43 Resp 16 08/10/18 12:43 BP 138/70 08/10/18 12:43 Pulse Ox 95 08/10/18 12:43 Intake & Output 08/09/18 08/10/18 08/10/18 18:59 06:59 18:59 Intake Total 320 320 Balance 320 320 Intake: IV 300 Intake, IV Titration 20 Amount Lactated Ringers 1,000 ml 20 @ 20 mls/hr IV .Q24H [facility] Rx#:[id number] Oral 320 Other: Voiding Method Toilet Toilet # Voids 3 3 - Exam - Constitutional General appearance: average body habitus, cooperative, no acute distress - EENT Eyes: EOMI, PERRLA ENT: hearing grossly normal Ears: bilateral: normal - Neck Neck: normal ROM Carotids: bilateral: upstroke normal Thyroid: bilateral: normal size - Respiratory Respiratory: bilateral: CTA - Cardiovascular Rhythm: regular Heart sounds: normal: S1, S2 - Gastrointestinal General gastrointestinal: normal bowel sounds - Integumentary Integumentary: normal turgor - Neurologic Neurologic: CNII-XII intact - Musculoskeletal Musculoskeletal: generalized weakness, back and right hip pain - Psychiatric Psychiatric: A&O x's 3, appropriate affect, intact judgment & insight - Labs CBC & Chem 7: 08/10/18 07:58 08/10/18 07:58 Labs: Abnormal Lab Results - Last 24 Hours (Table) 08/10/18 08/10/18 Range/Units 07:58 07:58 WBC 13.4 H (3.8-10.6) k/uL Neutrophils # 10.8 H (1.3-7.7) k/uL BUN 22 H (7-17) mg/dL Glucose 119 H (74-99) mg/dL Alkaline Phosphatase 148 H (38-126) U/L Microbiology - Last 24 Hours (Table) 08/09/18 13:30 Gram Stain - Preliminary Bronchial Brushings - Left Bronchial Washings Culture - Preliminary Assessment and Plan Plan: #1 Spinal skeletal pain secondary to suspected metastasis with numerous lesions throughout the thoracic spine. There are numerous skeletal osteolytic lesions also noted in the right femoral head with several measuring 3 cm in diameter. MRI reveals osseous metastatic lesions involving T5, T6, T12 and L2 vertebrae. There is some bony destruction most prominent T6 vertebrae as well. Slight posterior retropulsion of T5 and right T12 vertebrae are present in the anterior spinal canal. Brain MRI showed numerous lesions in the lumbar and sacral vertebral bodies consistent with metastatic disease, and tiny nodular enhancing foci in the brain involving the right cerebellar vermis, right occipital lobe medial right anterior occipital lobe, left cerebellar hemisphere right posterior cerebellar hemisphere that are suggestive of metastatic disease. #2 Bronchogenic soft tissue density mass measuring 4.5 x 3.5 x 2.2 cm located within the left upper lobe anteriorly at the level of the upper hilum. There is left suprahilar adenopathy as well. Suspect primary bronchogenic carcinoma with metastasis. Status post bronchoscopy and biopsies of the left upper lobe lesion, and the biopsy results are pending at this time #3 Remote history of chronic tobacco dependence. #4 Hypertension. #5 Hyperlipidemia. Plan: Biopsy results of the left upper lobe lesion are pending at this time, will await the final pathology report, patient is being discharged home today, no worsening shortness of breath, chest pain. She supposed to start radiation treatments tomorrow to the left hip, spine and brain. Vital signs are stable, patient is afebrile, patient will be seen in the outpatient setting, is in regards to the results of the biopsy. Follow-up with Dr. Martinez in the office. I performed a history & physical examination of the patient and discussed their management with my nurse practitioner, Mi Dougherty. I reviewed the nurse practitioner's note and agree with the documented findings and plan of care. Lung sounds are positive for diffuse wheezes throughout the lung randolph. The findings and the impression was discussed with the patient. I attest to the documentation by the nurse practitioner. Time with Patient: Less than 30
== END 2018-08-10 17:42 | disposition home or self-care (01) | DRG 940 ==
LOC: EC 14:46 → 3NMEDONC 20:18
PROVIDERS: ADMIT Internal Medicine; ATTEND Internal Medicine
PROC: 0BBG8ZX Excision of Left Upper Lung Lobe, Via Natural or Artificial Opening Endoscopic, Diagnostic (ICD-10-PCS; principal; 2018-08-09 07:30)
PROC: 0BDG8ZX Extraction of Left Upper Lung Lobe, Via Natural or Artificial Opening Endoscopic, Diagnostic (ICD-10-PCS; 2018-08-09 07:30)
DX: G89.3 Neoplasm related pain (acute) (chronic) (principal); C79.51 Secondary malignant neoplasm of bone; N17.9 Acute kidney failure, unspecified; C34.12 Malignant neoplasm of upper lobe, left bronchus or lung; E78.5 Hyperlipidemia, unspecified; I10 Essential (primary) hypertension; N39.41 Urge incontinence; R74.8 Abnormal levels of other serum enzymes; R59.9 Enlarged lymph nodes, unspecified; E07.9 Disorder of thyroid, unspecified; D72.829 Elevated white blood cell count, unspecified; Z87.891 Personal history of nicotine dependence; Z96.642 Presence of left artificial hip joint; Z79.82 Long term (current) use of aspirin; Z79.899 Other long term (current) drug therapy; Z87.01 Personal history of pneumonia (recurrent); Z83.3 Family history of diabetes mellitus
CPT/HCPCS: 31623; 31624; 31628; 36415; 70553; 71045; 71046; 71250; 72156; 72157; 72158; 74176; 80053; 81003; 82550; 82553; 83036; 84484; 85025; 85610; 85730; 87070; 87205; 88104; 88108; 88305; 93005; 96361; 96374; 99285

== ENCOUNTER → 2018-08-22 | Outpatient (CLI) | payer MEDICARE ==
[2018-08-22 15:08] LABS: Appearance,Urine Clear (Clear); Bilirubin,Urine Negative (Negative); Blood,Urine Negative (Negative); Color,Urine Light Yellow; Glucose,Urine (UA) Negative (Negative); Ketones,Urine Negative (Negative); Leukocyte Esterase,Urine Negative (Negative); Nitrite,Urine Negative (Negative); PH, Urine 6.5 (5.0-8.0); Protein,Urine Negative (Negative); Specific Gravity,Urine 1.008 (1.001-1.035); Urobilinogen,Urine <2.0 mg/dL (<2.0)
== END ==
LOC: LABWHC1 14:23
PROVIDERS: ATTEND Radiology Radiation Oncology
DX: C34.12 Malignant neoplasm of upper lobe, left bronchus or lung (principal); C79.51 Secondary malignant neoplasm of bone; R30.0 Dysuria
CPT/HCPCS: 81003; 87086

== ENCOUNTER 2018-08-23 00:32 | Inpatient (IN) | payer MEDICARE ==
[2018-08-23] MEDS ORDERED: ONDANSETRON 4 MG/2 ML VIAL IVP STA (01:26)
[2018-08-23] MEDS: SODIUM CHLORIDE 0.9% 500 ML 500 ML IV SCH ×2 (01:56→02:56)
[2018-08-23 01:59] LABS: Basophils % (A) 0 %; Eosinophils # (A) 0.1 k/uL (0-0.7); Eosinophils % (A) 2 %; HCT 33.6 % (34.0-46.0); HGB 11.6 gm/dL (11.4-16.0); Lymphocytes # (A) 0.1 k/uL (1.0-4.8); Lymphocytes % (A) 2 %; MCH 30.3 pg (25.0-35.0); MCHC 34.6 g/dL (31.0-37.0); MCV 87.6 fL (80.0-100.0); Mean Platelet Volume 6.4; Monocytes # (A) 0.2 k/uL (0-1.0); Monocytes % (A) 4 %; Neutrophils # (A) 4.6 k/uL (1.3-7.7); Neutrophils % (A) 90 %; Platelet Count 190 k/uL (150-450); RBC 3.84 m/uL (3.80-5.40); WBC 5.1 k/uL (3.8-10.6)
--- NOTE | 2018-08-23 02:02 | ED ---
Nausea/Vomiting/Diarrhea HPI - General Chief complaint: Nausea/Vomiting/Diarrhea Stated complaint: Nausea,Pain Time Seen by Provider: 08/23/18 01:16 Source: patient Mode of arrival: wheelchair Limitations: no limitations - History of Present Illness Initial comments: 73-year-old female patient recently diagnosed with metastatic lung cancer presents to the emergency department today for evaluation of nausea and vomiting. Patient states she has had symptoms since earlier this evening. She is receiving radiation and did have her fourth treatment today. She is receiving radiation to her brain, spine, and right femur. Patient states that she had abrupt onset of severe nausea with several episodes of vomiting. Patient states she is having some mild pain to the right upper leg. She denies any cough, congestion, sore throat, ear pain, abdominal pain, constipation, or diarrhea. She denies any rash or wounds. She is feeling shaky and feverish. Patient denies any recent rash, chest pain, back pain, numbness, tingling, dizziness, weakness, hematuria, dysuria, urinary urgency, urinary frequency, headache, visual changes, or any other complaints. - Related Data Home Medications Medication Instructions Recorded Confirmed Aspirin 81 mg PO HS 12/12/14 08/23/18 Atenolol [Tenormin] 50 mg PO HS 12/12/14 08/23/18 Calcium Carbonate/Vitamin D3 1 tab PO DAILY 12/12/14 08/23/18 [Caltrate 600 Plus D3 Tablet] Losartan/Hydrochlorothiazide 1 tab PO DAILY 12/12/14 08/23/18 [Hyzaar 100-25 Tablet] Multivitamin/Iron/Folic Acid 1 tab PO DAILY 12/12/14 08/23/18 [Centrum Complete Multivit Tab] Simvastatin [Zocor] 40 mg PO HS 12/12/14 08/23/18 Acetaminophen Tab [Tylenol] 1,000 mg PO Q6HR PRN 08/07/18 08/23/18 Flaxseed Oil 1,000 mg PO DAILY 08/07/18 08/23/18 Docusate [Colace] 100 mg PO DAILY 08/23/18 08/23/18 Memantine [Namenda] 10 mg PO DAILY 08/23/18 08/23/18 Previous Rx's Medication Instructions Recorded Dexamethasone 4 mg PO TID #90 tablet 08/10/18 HYDROcodone/APAP 5-325MG [Hollister 1 each PO Q6HR PRN 3 Days #12 tab 08/10/18 5-325] Pantoprazole [Protonix] 40 mg PO AC-BID #60 tablet. 08/10/18 Allergies Allergy/AdvReac Type Severity Reaction Status Date / Time No Known Allergies Allergy Verified 08/07/18 15:22 Review of Systems ROS Statement: Those systems with pertinent positive or pertinent negative responses have been documented in the HPI. ROS Other: All systems not noted in ROS Statement are negative. Past Medical History Past Medical History: Cancer, Hyperlipidemia, Hypertension, Pneumonia, Thyroid Disorder Additional Past Medical History / Comment(s): Back pain since May 2018. Lung Ca with mets to brain and bone. History of Any Multi-Drug Resistant Organisms: None Reported Past Surgical History: Orthopedic Surgery, Tonsillectomy Additional Past Surgical History / Comment(s): colonoscopy, left hip replacement Past Anesthesia/Blood Transfusion Reactions: No Reported Reaction Past Psychological History: No Psychological Hx Reported Smoking Status: Former smoker Past Alcohol Use History: Rare Past Drug Use History: None Reported - Past Family History Mother Additional Family Medical History / Comment(s): diabetes General Exam Limitations: no limitations General appearance: alert, in no apparent distress, other (As is a well- developed, well-nourished elderly female patient in no acute distress. Vital signs upon presentation are temperature 100.6F oral, pulse 105, respirations 20 , blood pressure 135/76, pulse ox 94% on room air.) Eye exam: Present: normal appearance, PERRL, EOMI. Absent: scleral icterus, conjunctival injection, periorbital swelling ENT exam: Present: normal exam, normal oropharynx, mucous membranes moist Respiratory exam: Present: normal lung sounds bilaterally. Absent: respiratory distress, wheezes, rales, rhonchi, stridor Cardiovascular Exam: Present: normal rhythm, tachycardia, normal heart sounds. Absent: systolic murmur, diastolic murmur, rubs, gallop, clicks GI/Abdominal exam: Present: soft, normal bowel sounds. Absent: distended, tenderness, guarding, rebound, rigid Neurological exam: Present: alert, oriented X3, CN II-XII intact Psychiatric exam: Present: normal affect, normal mood Skin exam: Present: warm, dry, intact, normal color. Absent: rash Course Vital Signs 08/23/18 08/23/18 08/23/18 00:53 01:26 02:04 Temperature 100.6 F H 100.6 F H 101.2 F H Pulse Rate 105 H 77 85 Respiratory 20 16 16 Rate Blood Pressure 135/76 129/65 131/75 O2 Sat by Pulse 94 L 97 95 Oximetry Medical Decision Making - Lab Data Result diagrams: 08/23/18 01:35 08/23/18 01:35 Lab Results 08/23/18 08/23/18 08/23/18 Range/Units 01:35 01:35 01:35 WBC 5.1 (3.8-10.6) k/uL RBC 3.84 (3.80-5.40) m/uL Hgb 11.6 (11.4-16.0) gm/dL Hct 33.6 L (34.0-46.0) % MCV 87.6 (80.0-100.0) fL MCH 30.3 (25.0-35.0) pg MCHC 34.6 (31.0-37.0) g/dL RDW 13.0 (11.5-15.5) % Plt Count 190 (150-450) k/uL Neutrophils % 90 % Lymphocytes % 2 % Monocytes % 4 % Eosinophils % 2 % Basophils % 0 % Neutrophils # 4.6 (1.3-7.7) k/uL Lymphocytes # 0.1 L (1.0-4.8) k/uL Monocytes # 0.2 (0-1.0) k/uL Eosinophils # 0.1 (0-0.7) k/uL Basophils # 0.0 (0-0.2) k/uL PT (9.0-12.0) sec INR (<1.2) APTT (22.0-30.0) sec Sodium 122 L (137-145) mmol/L Potassium 3.7 (3.5-5.1) mmol/L Chloride 88 L (98-107) mmol/L Carbon Dioxide 26 (22-30) mmol/L Anion Gap 8 mmol/L BUN 23 H (7-17) mg/dL Creatinine 0.75 (0.52-1.04) mg/dL Est GFR (CKD-EPI)AfAm >90 (>60 ml/min/1.73 sqM) Est GFR (CKD-EPI)NonAf 79 (>60 ml/min/1.73 sqM) Glucose 143 H (74-99) mg/dL Plasma Lactic Acid Sumit 1.7 (0.7-2.0) mmol/L Calcium 8.3 L (8.4-10.2) mg/dL Total Bilirubin 0.6 (0.2-1.3) mg/dL AST 42 H (14-36) U/L ALT 34 (9-52) U/L Alkaline Phosphatase 218 H (38-126) U/L Total Protein 5.6 L (6.3-8.2) g/dL Albumin 3.2 L (3.5-5.0) g/dL Urine Color Urine Appearance (Clear) Urine pH (5.0-8.0) Ur Specific [place] (1.001-1.035) Urine Protein (Negative) Urine Glucose (UA) (Negative) Urine Ketones (Negative) Urine Blood (Negative) Urine Nitrite (Negative) Urine Bilirubin (Negative) Urine Urobilinogen (<2.0) mg/dL Ur Leukocyte Esterase (Negative) 08/23/18 08/23/18 Range/Units 01:35 03:10 WBC (3.8-10.6) k/uL RBC (3.80-5.40) m/uL Hgb (11.4-16.0) gm/dL Hct (34.0-46.0) % MCV (80.0-100.0) fL MCH (25.0-35.0) pg MCHC (31.0-37.0) g/dL RDW (11.5-15.5) % Plt Count (150-450) k/uL Neutrophils % % Lymphocytes % % Monocytes % % Eosinophils % % Basophils % % Neutrophils # (1.3-7.7) k/uL Lymphocytes # (1.0-4.8) k/uL Monocytes # (0-1.0) k/uL Eosinophils # (0-0.7) k/uL Basophils # (0-0.2) k/uL PT 9.5 (9.0-12.0) sec INR 1.0 (<1.2) APTT 20.2 L (22.0-30.0) sec Sodium (137-145) mmol/L Potassium (3.5-5.1) mmol/L Chloride (98-107) mmol/L Carbon Dioxide (22-30) mmol/L Anion Gap mmol/L BUN (7-17) mg/dL Creatinine (0.52-1.04) mg/dL Est GFR (CKD-EPI)AfAm (>60 ml/min/1.73 sqM) Est GFR (CKD-EPI)NonAf (>60 ml/min/1.73 sqM) Glucose (74-99) mg/dL Plasma Lactic Acid Sumit (0.7-2.0) mmol/L Calcium (8.4-10.2) mg/dL Total Bilirubin (0.2-1.3) mg/dL AST (14-36) U/L ALT (9-52) U/L Alkaline Phosphatase (38-126) U/L Total Protein (6.3-8.2) g/dL Albumin (3.5-5.0) g/dL Urine Color Yellow Urine Appearance Clear (Clear) Urine pH 6.0 (5.0-8.0) Ur Specific [place] 1.013 (1.001-1.035) Urine Protein Negative (Negative) Urine Glucose (UA) Negative (Negative) Urine Ketones Negative (Negative) Urine Blood Negative (Negative) Urine Nitrite Negative (Negative) Urine Bilirubin Negative (Negative) Urine Urobilinogen <2.0 (<2.0) mg/dL Ur Leukocyte Esterase Negative (Negative) Disposition Clinical Impression: Fever of unknown origin, Metastatic lung cancer (metastasis from lung to other site) Disposition: ADMITTED IP TO THIS [facility] Condition: Serious Referrals: Kanika Vides MD [Primary Care Provider] - 1-2 days Decision to Admit Reason: Admit from EC Decision Date: 08/23/18 Decision Time: 03:55
[2018-08-23 02:08] LABS: ALT 34 U/L (9-52); AST 42 U/L (14-36); Albumin 3.2 g/dL (3.5-5.0); Alkaline Phosphatase 218 U/L (38-126); Anion Gap 8 mmol/L; Blood Urea Nitrogen 23 mg/dL (7-17); Calcium 8.3 mg/dL (8.4-10.2); Carbon Dioxide 26 mmol/L (22-30); Chloride 88 mmol/L (98-107); Glucose 143 mg/dL (74-99); Potassium 3.7 mmol/L (3.5-5.1); Sodium 122 mmol/L (137-145); Total Bilirubin 0.6 mg/dL (0.2-1.3); Total Protein 5.6 g/dL (6.3-8.2)
[2018-08-23 02:13] LABS: Prothrombin Time 9.5 sec (9.0-12.0)
[2018-08-23] MEDS ORDERED: ACETAMINOPHEN TAB 500 MG TAB PO STA (02:19)
[2018-08-23 02:25] LABS: Partial Thromboplastin Time 20.2 sec (22.0-30.0)
--- NOTE | 2018-08-23 02:27 | XR ---
EXAMINATION TYPE: XR chest 2V DATE OF EXAM: 08/23/2018 COMPARISON: 08/09/2018 and 08/07/2018 HISTORY: Lung cancer. Chest pain TECHNIQUE: Frontal and lateral views of the chest are obtained. FINDINGS: Heart is normal. There is irregular increased density at the left pulmonary hilum that clara sures 3 x 1.5 cm. The other lung randolph are fairly clear. There is no pleural effusion. There is no h eart failure. There is 40% anterior wedging of T6 vertebra. IMPRESSION: Irregular density at the left pulmonary hilum consistent with scarring unchanged compare d to 08/07/2018. Normal heart. No heart failure.
[2018-08-23] MEDS ORDERED: SODIUM CHLORIDE 0.9% 500 ML 500 ML IV ONE (02:41)
[2018-08-23 03:23] LABS: Appearance,Urine Clear (Clear); Bilirubin,Urine Negative (Negative); Blood,Urine Negative (Negative); Color,Urine Yellow; Glucose,Urine (UA) Negative (Negative); Ketones,Urine Negative (Negative); Leukocyte Esterase,Urine Negative (Negative); Nitrite,Urine Negative (Negative); Protein,Urine Negative (Negative); Specific Gravity,Urine 1.013 (1.001-1.035); Urobilinogen,Urine <2.0 mg/dL (<2.0)
[2018-08-23] MEDS ORDERED: NALOXONE 0.4 MG/ML 1 ML VIAL IV PRN (03:48)
[2018-08-23] MEDS ORDERED: ONDANSETRON 4 MG/2 ML VIAL IVP PRN (03:54)
[2018-08-23] MEDS ORDERED: PIPERACILLIN-TAZOBACTAM 3.375 GM in SODIUM CHLORIDE 0.9% 100 ML IVPB STA (03:57)
[2018-08-23] MEDS ORDERED: VANCOMYCIN IV PER PHARMACY 1 EACH MISC MISCELLANE PRN (03:57)
[2018-08-23] MEDS: SODIUM CHLORIDE 0.9% 1,000 ML IV SCH ×2 (04:15→22:28)
[2018-08-23] MEDS ORDERED: VANCOMYCIN 1,500 MG in SODIUM CHLORIDE 0.9% 250 ML IVPB SCH (06:00)
[2018-08-23] MEDS: HYDROcodone/APAP 5-325MG 1 EACH TAB PO PRN ×2 (10:33→20:45)
[2018-08-23] MEDS: PIPERACILLIN-TAZOBACTAM 3.375 GM in SODIUM CHLORIDE 0.9% 100 ML IVPB SCH ×2 (11:52→19:41)
[2018-08-23] MEDS ORDERED: ACETAMINOPHEN TAB 500 MG TAB PO PRN (12:24)
--- NOTE | 2018-08-23 12:43 | P.HPIM ---
History of Present Illness H&P Date: 08/23/18 Chief Complaint: Unknown origin This is a 73-year-old female presented to the emergency room with complaints of fever. Patient has a recent diagnosis of metastatic cancer to the spine. Patient recently admitted for back pain and was discovered she has missed has to cancer to spine and brain. At that time patient underwent bronchoscopy of lung mass started palliative radiation to right femur, spine and brain. Today patient presented with complaints of fever. Patient states fever started last night. Patient states fever was also associated with nausea and vomiting. Patient denies cough or congestion. Patient denies any urinary burning or frequency. Patient denies any upper respiratory symptoms. Patient denies any rash or open sores. Patient is a known past medical history of lung cancer with metastases to brain and bone, hyperlipidemia, hypertension and thyroid disorder. Urinary analysis completed and was negative. Patient also negative for influenza. Chest x-ray completed showing irregular density at the left pulmonary hilum consistent with scarring unchanged compared to 08/07/2018. Normal heart no heart failure. Patient's temp 101.2. Patient started on vancomycin and Zosyn. Dr. Leigh for oncology services consulted. Dr. Dinh consulted for infectious disease. Blood cultures have been ordered. Dr. Victor per radiology been consulted for patient's palliative radiation treatments. Ultrasound of abdomen ordered due to patient complaints of nausea and vomiting. This time patient denies chest pain or shortness breath. Patient denies nausea vomiting or diarrhea. Patient denies any urinary burning or frequency. Review of Systems please refer to HPI otherwise unremarkable Past Medical History Past Medical History: Cancer, Hyperlipidemia, Hypertension, Thyroid Disorder Additional Past Medical History / Comment(s): Back pain since May 2018. Lung Ca with mets to brain and bone. History of Any Multi-Drug Resistant Organisms: None Reported Past Surgical History: Orthopedic Surgery, Tonsillectomy Additional Past Surgical History / Comment(s): colonoscopy, left hip replacement Past Anesthesia/Blood Transfusion Reactions: No Reported Reaction Past Psychological History: No Psychological Hx Reported Smoking Status: Former smoker Past Alcohol Use History: Rare Past Drug Use History: None Reported - Past Family History Mother Additional Family Medical History / Comment(s): diabetes Medications and Allergies Home Medications Medication Instructions Recorded Confirmed Type Aspirin 81 mg PO HS 12/12/14 08/23/18 History Atenolol [Tenormin] 50 mg PO HS 12/12/14 08/23/18 History Calcium Carbonate/Vitamin D3 1 tab PO DAILY 12/12/14 08/23/18 History [Caltrate 600 Plus D3 Tablet] Losartan/Hydrochlorothiazide 1 tab PO DAILY 12/12/14 08/23/18 History [Hyzaar 100-25 Tablet] Multivitamin/Iron/Folic Acid 1 tab PO DAILY 12/12/14 08/23/18 History [Centrum Complete Multivit Tab] Simvastatin [Zocor] 40 mg PO HS 12/12/14 08/23/18 History Acetaminophen Tab [Tylenol] 1,000 mg PO Q6HR PRN 08/07/18 08/23/18 History Flaxseed Oil 1,000 mg PO DAILY 08/07/18 08/23/18 History Pantoprazole [Protonix] 40 mg PO AC-BID #60 tablet. 08/10/18 08/23/18 Rx Dexamethasone [Decadron] 4 mg PO BID 08/23/18 08/23/18 History Docusate [Colace] 100 mg PO DAILY 08/23/18 08/23/18 History HYDROcodone/APAP 7.5-325MG [Golden 1 tab PO Q6HR PRN 08/23/18 08/23/18 History 7.5-325] Memantine [Namenda] 10 mg PO DAILY 08/23/18 08/23/18 History Allergies Allergy/AdvReac Type Severity Reaction Status Date / Time No Known Allergies Allergy Verified 08/23/18 08:48 Physical Exam Vitals: Vital Signs Temp Pulse Pulse Resp BP BP Pulse Ox 08/23/18 08:00 78 17 08/23/18 07:42 97 08/23/18 07:30 99.2 F 78 17 106/63 99 08/23/18 05:10 99.0 F 75 131/78 96 08/23/18 04:04 98.8 F 87 16 124/70 97 08/23/18 02:04 101.2 F H 85 16 131/75 95 08/23/18 01:26 100.6 F H 77 16 129/65 97 08/23/18 00:53 100.6 F H 105 H 20 135/76 94 L Intake and Output 08/22/18 08/23/18 08/23/18 22:59 06:59 14:59 Intake Total 400 Balance 400 Intake: Oral 400 Other: # Voids 1 Weight 86.183 kg Head normocephalic Neck supple Lungs clear to auscultation bilaterally no wheezing or crackles Heart regular rate and rhythm S1-S2, no rub or gallop Abdomen is soft nontender nondistended positive bowel sounds no hepatosplenomegaly Extremities no edema Neuro alert and orientated to 3 Results CBC & Chem 7: 08/23/18 01:35 08/23/18 01:35 Labs: Abnormal Lab Results - Last 24 Hours (Table) 08/23/18 08/23/18 08/23/18 Range/Units 01:35 01:35 01:35 Hct 33.6 L (34.0-46.0) % Lymphocytes # 0.1 L (1.0-4.8) k/uL APTT 20.2 L (22.0-30.0) sec Sodium 122 L (137-145) mmol/L Chloride 88 L (98-107) mmol/L BUN 23 H (7-17) mg/dL Glucose 143 H (74-99) mg/dL Calcium 8.3 L (8.4-10.2) mg/dL AST 42 H (14-36) U/L Alkaline Phosphatase 218 H (38-126) U/L Total Protein 5.6 L (6.3-8.2) g/dL Albumin 3.2 L (3.5-5.0) g/dL Microbiology - Last 24 Hours (Table) 08/23/18 03:10 Urine Culture - Preliminary Urine,Voided Thrombosis Risk Factor Assmnt - Choose All That Apply Any of the Below Risk Factors Present?: Yes Each Factor Represents 1 point: Obesity (BMI >25) Other Risk Factors: Yes Each Risk Factor Represents 2 Points: Age 61-74 years Thrombosis Risk Factor Assessment Total Risk Factor Score: 3 Thrombosis Risk Factor Assessment Level: Moderate Risk Assessment and Plan Assessment: 1. Fever of unknown origin. Patient has been on dexamethasone per oncology services. Urinary analysis negative. Negative for influenza. Chest x-ray completed showing irregular density at the left pulmonary hilum consistent with scarring unchanged compared to 08/07/2028. Normal heart. Normal heart failure. Blood and urine cultures have been ordered. Dr. Dinh for infectious disease has been ordered. She started on vancomycin and Zosyn. White blood cell 5.1. Temp 101.6 2. Nausea and vomiting. Ultrasound of abdomen ordered. Amylase and Lipase levels ordered 3. Recent diagnosis of lung cancer with metastases to spine and brain. Patient currently undergoing palliative radiation to spine femur and brain. Oncology services and radiology services consulted. Cytology report from bronchoscopy on 08/09/2018 showing highly atypical metaplastic bronchial cells suspicious for non-small cell carcinoma. 4. Hyponatremia. Sodium 122. Patient received 1 L of normal saline in emergency room. Normal saline at 75 and fluid restrictions ordered 5. History of hyperlipidemia. Zocor on hold due to elevated liver enzymes 6. History of essential hypertension. Beta yanira resumed. Hyzaar currently on hold 7. Hypothyroidism. Continue Synthroid Time with Patient: Greater than 30 (Greater than 60% of the total time spent in counseling and coordination of care. I performed an examination of the patient and discussed their management with the Nurse Practitioner. I have reviewed the Nurse Practitioner's notes and agree with the documented findings and plan of care)
[2018-08-23 13:10] LABS: Lipase 242 U/L (23-300)
[2018-08-23 13:20] LABS: Amylase 411 U/L (30-110)
--- NOTE | 2018-08-23 16:07 | US ---
EXAMINATION TYPE: US abdomen complete DATE OF EXAM: 08/23/2018 COMPARISON: NONE CLINICAL HISTORY: nausea and vomitting. Abdominal cramping, nausea and vomiting yesterday EXAM MEASUREMENTS: Liver Length: 13.3 cm Gallbladder Wall: 0.2 cm CBD: 0.5 cm Spleen: 10.7 cm Right Kidney: 9.4 x 4.3 x 4.3 cm Left Kidney: 10.0 x 5.2 x 4.7 cm Technical limitations due to overlying bowel content Pancreas: duct = 0.4cm Limited evaluation of the pancreatic head. Additional workup is dynamic contr ast CT abdomen to evaluate pancreas is recommended. Liver: visualized portions appear wnl Gallbladder: no evidence of stones Evidence for sonographic Michaud's sign: no CBD: appears wnl Spleen: wnl Right Kidney: no evidence of hydronephrosis Left Kidney: no evidence of hydronephrosis Upper IVC: wnl Abd Aorta: bifurcation obscured IMPRESSION: 1. There is prominence of the pancreatic duct measuring 0.4 cm at the body. Normal less than 0.[address] with contrast to the pancreas could be performed. Consider ERCP for additional evaluation. A Yellow level critical message alert has been initiated for Con Stevenson MD via the [facility] Critical Results System on 08/23/2018 4:04 PM. This message alert has been sent to Con Stevenson MD via the preferences provided by the clinician for the receipt of Radiology Critical Findings. [employer] e ID [id number].
[2018-08-23] MEDS: VANCOMYCIN 1,500 MG in SODIUM CHLORIDE 0.9% 250 ML IVPB SCH (17:26)
[2018-08-23] MEDS: PANTOPRAZOLE 40 MG TABLET PO SCH (17:26)
[2018-08-23] MEDS: ASPIRIN 81 MG PO SCH (20:45)
[2018-08-23] MEDS: DEXAMETHASONE 4 MG TAB PO SCH (20:45)
[2018-08-23] MEDS: ATENOLOL 50 MG TAB PO SCH (20:45)
--- NOTE | 2018-08-23 22:37 | P.CONS ---
History of Present Illness - Reason for Consult Consult date: 08/23/18 - Chief Complaint Fever - History of Present Illness 73-year-old female presents to Hospital feeling poorly with fevers over a few days' time it's increasing fatigue and malaise. 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 The presentation is evidence of multiple areas of metastasis including her brain spine and right thigh. The patient has been receiving palliative radiation therapy to these areas and has had 2 treatments of what appears to be whole brain irradiation for 12 lesions in her brain. It is after this that she started to have her fevers and feel poorly. She the moment is denying other significant lateralizing symptoms. She denying significant cough or sputum production and is not having any significant hemoptysis. Denies any significant urinary symptoms no burning or discomfort occurred. She over did develop some abdominal symptoms she has having some nausea and emesis occurring before her admission she started to have or fever. Denies hematemesis melena or hematochezia associated with her abdominal symptoms. This is improved since coming to hospital. Review of Systems 73-year-old woman has had fever but is feeling better this evening HEENT:Denies headache or acute visual change. Denies sinus or mouth discomforts. Denies neck stiffness or pain. Denies significant oral cavity pain. Denies difficulty on swallowing. Lungs: Shortness of breath is at baseline denying severe bouts of cough sputum production or hemoptysis as per the HPI Cardiovascular: Denies chest pains or pressures at this time shortness of breath is at baseline she does have dyspnea with exertion that has been ongoing for several months. Gastrointestinal: As noted per the HPI had nausea and emesis before admission been no hematemesis melena or hematochezia no stiff and diarrhea Musculoskeletal: Has had severe back pain and right leg pain it's improving quite significantly with her radiation therapy. Skin: Denies new rash or lesions. No new ulcers or wounds are related.. Neuro: Denies headache or visual change. Denies any new onset weakness or difficulty with ambulation. Denies falls or seizures. Psychiatric:Denies anxiety or depression. Endocrine: History is significant fatigue but weight has been somewhat stable. Past Medical History Past Medical History: Cancer, Hyperlipidemia, Hypertension, Pneumonia, Thyroid Disorder Additional Past Medical History / Comment(s): Back pain since May 2018. Lung Ca with mets to brain and bone. History of Any Multi-Drug Resistant Organisms: None Reported Past Surgical History: Orthopedic Surgery, Tonsillectomy Additional Past Surgical History / Comment(s): colonoscopy, left hip replacement Past Anesthesia/Blood Transfusion Reactions: No Reported Reaction Past Psychological History: No Psychological Hx Reported Additional Psychological History / Comment(s): Single and her daughter helps take care of her. No animals in the home. no recent travel. 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 History of smoking. No alcohol use Smoking Status: Former smoker Past Alcohol Use History: Rare Past Drug Use History: None Reported - Past Family History Mother Additional Family Medical History / Comment(s): diabetes Medications and Allergies Home Medications and Allergies Comment(s): Current Medications Acetaminophen (Tylenol Tab) 1,000 mg PO Q6HR PRN PRN Reason: Mild Pain Last Admin: 08/23/18 15:38 Dose: 1,000 mg Hydrocodone Bitart/Acetaminophen ([place] 5-325) 1 each PO Q6HR PRN PRN Reason: Moderate Pain Last Admin: 08/23/18 20:45 Dose: 1 each Aspirin (Aspirin) 81 mg PO HS [facility] Last Admin: 08/23/18 20:45 Dose: 81 mg Atenolol (Tenormin) 50 mg PO HS [facility] Last Admin: 08/23/18 20:45 Dose: 50 mg Calcium Carbonate ([place] 500+D) 1 each PO DAILY [facility] Dexamethasone (Hexadrol) 4 mg PO BID [facility] Last Admin: 08/23/18 20:45 Dose: 4 mg Docusate Sodium (Colace) 100 mg PO DAILY [facility] Sodium Chloride (Saline 0.9%) 1,000 mls @ 75 mls/hr IV .[id number] [facility] Last Admin: 08/23/18 22:28 Dose: Not Given Piperacillin Sod/Tazobactam (Sod 3.375 gm/ Sodium Chloride) 100 mls @ 25 mls/ hr IVPB Q8H [facility] Last Admin: 08/23/18 19:41 Dose: 25 mls/hr Vancomycin HCl 1,500 mg/ (Sodium Chloride) 250 mls @ 125 mls/hr IVPB Q12H [facility] Last Admin: 08/23/18 17:26 Dose: 125 mls/hr Memantine (Namenda) 10 mg PO DAILY [facility] Multivitamins (Theragran) 1 each PO DAILY@1200 [facility] Naloxone HCl (Narcan) 0.2 mg IV Q2M PRN PRN Reason: Opioid Reversal Ondansetron HCl (Zofran) 4 mg IVP Q6HR PRN PRN Reason: Nausea And Vomiting Pantoprazole Sodium (Protonix) 40 mg PO AC-BID [facility] Last Admin: 08/23/18 17:26 Dose: 40 mg Home Medications Medication Instructions Recorded Confirmed Type Aspirin 81 mg PO HS 12/12/14 08/23/18 History Atenolol [Tenormin] 50 mg PO HS 12/12/14 08/23/18 History Calcium Carbonate/Vitamin D3 1 tab PO DAILY 12/12/14 08/23/18 History [Caltrate 600 Plus D3 Tablet] Losartan/Hydrochlorothiazide 1 tab PO DAILY 12/12/14 08/23/18 History [Hyzaar 100-25 Tablet] Multivitamin/Iron/Folic Acid 1 tab PO DAILY 12/12/14 08/23/18 History [Centrum Complete Multivit Tab] Simvastatin [Zocor] 40 mg PO HS 12/12/14 08/23/18 History Acetaminophen Tab [Tylenol] 1,000 mg PO Q6HR PRN 08/07/18 08/23/18 History Flaxseed Oil 1,000 mg PO DAILY 08/07/18 08/23/18 History Pantoprazole [Protonix] 40 mg PO AC-BID #60 tablet. 08/10/18 08/23/18 Rx Dexamethasone [Decadron] 4 mg PO BID 08/23/18 08/23/18 History Docusate [Colace] 100 mg PO DAILY 08/23/18 08/23/18 History HYDROcodone/APAP 7.5-325MG [[place] 1 tab PO Q6HR PRN 08/23/18 08/23/18 History 7.5-325] Memantine [Namenda] 10 mg PO DAILY 08/23/18 08/23/18 History Allergies Allergy/AdvReac Type Severity Reaction Status Date / Time No Known Allergies Allergy Verified 08/23/18 08:48 Physical Exam Vitals: Vital Signs Temp Pulse Pulse Resp BP BP Pulse Ox 08/23/18 19:44 98.9 F 99 16 142/81 98 08/23/18 17:30 99.4 F 11/14/18 16:33 101.0 F H 08/23/18 15:47 96 18 08/23/18 14:00 99.7 F H 96 18 129/75 96 08/23/18 08:00 78 17 08/23/18 07:42 97 08/23/18 07:30 99.2 F 78 17 106/63 99 08/23/18 05:10 99.0 F 75 131/78 96 08/23/18 04:04 98.8 F 87 16 124/70 97 08/23/18 02:04 101.2 F H 85 16 131/75 95 08/23/18 01:26 100.6 F H 77 16 129/65 97 08/23/18 00:53 100.6 F H 105 H 20 135/76 94 L Intake and Output 08/23/18 08/23/18 08/23/18 06:59 14:59 22:59 Intake Total 900 Balance 900 Intake: Intake, IV Titration 500 Amount Piperacillin-Tazobactam 3 250 .375 gm In Sodium Chloride 0.9% 100 ml @ 25 mls/hr IVPB [facility]CE [facility] Rx# :[id number] Vancomycin 1,500 mg In 250 Sodium Chloride 0.9% 250 ml @ 125 mls/hr IVPB Q12H [facility] Rx#:[id number] Oral 400 Other: # Voids 1 Weight 86.183 kg 73-year-old female relates she is feeling better this evening. Was still having fevers. HEENT: Anicteric conjunctiva are pink and moist nasal mucosa grossly intact without significant lesions, there is no thrush. No oral lesions Neck: The neck is supple without significant lymphadenopathy or thyromegaly. Lungs: There is symmetrical air entry with few basilar crackles no bronchial sounds no dullness or egophony Heart: Regular rate and rhythm with an audible S1-S2, no S3 no S4. There is no significant murmur click or rub, PMI was nondisplaced. Abdomen: Positive bowel sounds soft and nontender without palpable masses or organomegaly. There was no guarding or rebound. Extremities: The upper extremities have excellent pulses they are symmetric, no significant petechiae or telangiectasia. No splinter hemorrhages were noted. The lower extremities are free from significant edema. The peripheral pulses were 2+ and symmetric. Neuro: Awake alert oriented to person place and time. There are no acute new gross focal sensory motor deficits. The skin is without evidence of any significant lesions, blisters or ulcerations related to recent radiation therapy. Results CBC & Chem 7: 08/23/18 01:35 08/23/18 01:35 Labs: Abnormal Lab Results - Last 24 Hours (Table) 08/23/18 08/23/18 08/23/18 Range/Units 01:35 01:35 01:35 Hct 33.6 L (34.0-46.0) % Lymphocytes # 0.1 L (1.0-4.8) k/uL APTT 20.2 L (22.0-30.0) sec Sodium 122 L (137-145) mmol/L Chloride 88 L (98-107) mmol/L BUN 23 H (7-17) mg/dL Glucose 143 H (74-99) mg/dL Calcium 8.3 L (8.4-10.2) mg/dL AST 42 H (14-36) U/L Alkaline Phosphatase 218 H (38-126) U/L Total Protein 5.6 L (6.3-8.2) g/dL Albumin 3.2 L (3.5-5.0) g/dL Amylase (30-110) U/L 08/23/18 Range/Units 01:35 Hct (34.0-46.0) % Lymphocytes # (1.0-4.8) k/uL APTT (22.0-30.0) sec Sodium (137-145) mmol/L Chloride (98-107) mmol/L BUN (7-17) mg/dL Glucose (74-99) mg/dL Calcium (8.4-10.2) mg/dL AST (14-36) U/L Alkaline Phosphatase (38-126) U/L Total Protein (6.3-8.2) g/dL Albumin (3.5-5.0) g/dL Amylase 411 H* (30-110) U/L Microbiology - Last 24 Hours (Table) 08/23/18 03:10 Urine Culture - Preliminary Urine,Voided Laboratory Results WBC 5.1 k/uL (3.8-10.6) 08/23/18 01:35 RBC 3.84 m/uL (3.80-5.40) 08/23/18 01:35 Hgb 11.6 gm/dL (11.4-16.0) 08/23/18 01:35 Hct 33.6 % (34.0-46.0) L 08/23/18 01:35 MCV 87.6 fL (80.0-100.0) 08/23/18 01:35 MCH 30.3 pg (25.0-35.0) 08/23/18 01:35 MCHC 34.6 g/dL (31.0-37.0) 08/23/18 01:35 RDW 13.0 % (11.5-15.5) 08/23/18 01:35 Plt Count 190 k/uL (150-450) 08/23/18 01:35 Neutrophils % 90 % 08/23/18 01:35 Lymphocytes % 2 % 08/23/18 01:35 Monocytes % 4 % 08/23/18 01:35 Eosinophils % 2 % 08/23/18 01:35 Basophils % 0 % 08/23/18 01:35 Neutrophils # 4.6 k/uL (1.3-7.7) 08/23/18 01:35 Lymphocytes # 0.1 k/uL (1.0-4.8) L 08/23/18 01:35 Monocytes # 0.2 k/uL (0-1.0) 08/23/18 01:35 Eosinophils # 0.1 k/uL (0-0.7) 08/23/18 01:35 Basophils # 0.0 k/uL (0-0.2) 08/23/18 01:35 PT 9.5 sec (9.0-12.0) 08/23/18 01:35 INR 1.0 (<1.2) 08/23/18 01:35 APTT 20.2 sec (22.0-30.0) L 08/23/18 01:35 Sodium 122 mmol/L (137-145) L 08/23/18 01:35 Potassium 3.7 mmol/L (3.5-5.1) 08/23/18 01:35 Chloride 88 mmol/L (98-107) L 08/23/18 01:35 Carbon Dioxide 26 mmol/L (22-30) 08/23/18 01:35 Anion Gap 8 mmol/L 08/23/18 01:35 BUN 23 mg/dL (7-17) H 08/23/18 01:35 Creatinine 0.75 mg/dL (0.52-1.04) 08/23/18 01:35 Est GFR (CKD-EPI)AfAm >90 (>60 ml/min/1.73 sqM) 08/23/18 01:35 Est GFR (CKD-EPI)NonAf 79 (>60 ml/min/1.73 sqM) 08/23/18 01:35 Glucose 143 mg/dL (74-99) H 08/23/18 01:35 Plasma Lactic Acid [place] 1.7 mmol/L (0.7-2.0) 08/23/18 01:35 Calcium 8.3 mg/dL (8.4-10.2) L 08/23/18 01:35 Total Bilirubin 0.6 mg/dL (0.2-1.3) 08/23/18 01:35 AST 42 U/L (14-36) H 08/23/18 01:35 ALT 34 U/L (9-52) 08/23/18 01:35 Alkaline Phosphatase 218 U/L (38-126) H 08/23/18 01:35 Total Protein 5.6 g/dL (6.3-8.2) L 08/23/18 01:35 Albumin 3.2 g/dL (3.5-5.0) L 08/23/18 01:35 Amylase 411 U/L (30-110) H* 08/23/18 01:35 Lipase 242 U/L (23-300) 08/23/18 01:35 Urine Color Yellow 08/23/18 03:10 Urine Appearance Clear (Clear) 08/23/18 03:10 Urine pH 6.0 (5.0-8.0) 08/23/18 03:10 Ur Specific [place] 1.013 (1.001-1.035) 08/23/18 03:10 Urine Protein Negative (Negative) 08/23/18 03:10 Urine Glucose (UA) Negative (Negative) 08/23/18 03:10 Urine Ketones Negative (Negative) 08/23/18 03:10 Urine Blood Negative (Negative) 08/23/18 03:10 Urine Nitrite Negative (Negative) 08/23/18 03:10 Urine Bilirubin Negative (Negative) 08/23/18 03:10 Urine Urobilinogen <2.0 mg/dL (<2.0) 08/23/18 03:10 Ur Leukocyte Esterase Negative (Negative) 08/23/18 03:10 Influenza Type A RNA Not Detected (Not Detectd) 08/23/18 04:04 Influenza Type B (PCR) Not Detected (Not Detectd) 08/23/18 04:04 Microbiology 08/23/18 03:10 Urine,Voided Urine Culture - Preliminary Assessment and Plan (1) Fever Narrative/Plan: 73-year-old female presents to Hospital feeling poorly with fevers over the last few days before coming to hospital. Is under she has a significant recent past medical history with her non-small cell lung carcinoma with metastasis to her brain and spine and right leg. She is receiving palliative radiation therapy. She does not appear to have any significant radiation dermatitis or cellulitis going on at this time. There is evidence of some pancreatic ductal dilatation and evidence of an elevated amylase but normal lipase and normal bilirubin. It is noted from prior data there is been any involvement of tumor in this region. Chest x-ray fails reveal evidence of any new pneumonia or postobstructive pneumonia occurring related to her known lung tumor. Fever could be directly related to her current radiation therapy and effects of that especially since she had been receiving some brain irradiation. If she has any ongoing abdominal symptoms and if amylase does not rapidly improve may need gastroenterology evaluation to evaluate the duct. Antibiotic therapy currently is with piperacillin tazobactam and vancomycin which is being utilized with her current level of compromise and pending culture results. She is receiving dexamethasone and this will help determine if her fever also rapidly resolved. Current Visit: Yes Status: Acute Code(s): R50.9 - FEVER, UNSPECIFIED SNOMED Code(s): 343004854 (2) Metastatic cancer to spine Current Visit: No Status: Acute Code(s): C79.51 - SECONDARY MALIGNANT NEOPLASM OF BONE SNOMED Code(s): 90013758 (3) Non-small cell carcinoma of lung, stage 4 Current Visit: Yes Status: Acute Code(s): C34.90 - MALIGNANT NEOPLASM OF UNSP PART OF UNSP BRONCHUS OR LUNG SNOMED Code(s): 502397052
[2018-08-24] MEDS: PIPERACILLIN-TAZOBACTAM 3.375 GM in SODIUM CHLORIDE 0.9% 100 ML IVPB SCH ×3 (03:43→19:42)
[2018-08-24] MEDS: VANCOMYCIN 1,500 MG in SODIUM CHLORIDE 0.9% 250 ML IVPB SCH ×2 (05:25→17:35)
[2018-08-24] MEDS: SODIUM CHLORIDE 0.9% 1,000 ML IV SCH ×2 (05:26→23:08)
[2018-08-24] MEDS: HYDROcodone/APAP 5-325MG 1 EACH TAB PO PRN ×3 (05:31→19:38)
[2018-08-24 08:07] LABS: Basophils % (A) 0 %; Eosinophils # (A) 0.1 k/uL (0-0.7); Eosinophils % (A) 3 %; HCT 34.9 % (34.0-46.0); HGB 11.7 gm/dL (11.4-16.0); Lymphocytes # (A) 0.1 k/uL (1.0-4.8); Lymphocytes % (A) 5 %; MCH 30.1 pg (25.0-35.0); MCHC 33.4 g/dL (31.0-37.0); MCV 90.3 fL (80.0-100.0); Mean Platelet Volume 6.9; Monocytes # (A) 0.1 k/uL (0-1.0); Monocytes % (A) 4 %; Neutrophils # (A) 2.6 k/uL (1.3-7.7); Neutrophils % (A) 88 %; Platelet Count 159 k/uL (150-450); RBC 3.87 m/uL (3.80-5.40); RDW 13.2 % (11.5-15.5); WBC 2.9 k/uL (3.8-10.6)
[2018-08-24 08:17] LABS: Albumin 2.9 g/dL (3.5-5.0); Calcium 7.6 mg/dL (8.4-10.2); Potassium 4.2 mmol/L (3.5-5.1); Total Bilirubin 0.5 mg/dL (0.2-1.3); Total Protein 5.4 g/dL (6.3-8.2)
[2018-08-24 08:51] LABS: Amylase 137 U/L (30-110); Lipase 120 U/L (23-300)
[2018-08-24] MEDS ORDERED: NON-FORMULARY DRUG (Flaxseed Oil [Flaxseed Oil] 1,000 MG) PO SCH (09:00)
[2018-08-24] MEDS ORDERED: LOSARTAN PO SCH (09:00)
[2018-08-24] MEDS ORDERED: HYDROCHLOROTHIAZIDE PO SCH (09:00)
[2018-08-24] MEDS: CALCIUM CARB-VIT D 500MG-200UN 1 EACH TAB PO SCH (09:32)
[2018-08-24] MEDS: MULTIVITAMINS, THERA 1 EACH TAB PO SCH (09:32)
[2018-08-24] MEDS: MEMANTINE 10 MG TAB PO SCH (09:32)
[2018-08-24] MEDS: PANTOPRAZOLE 40 MG TABLET PO SCH ×2 (09:32→17:35)
[2018-08-24] MEDS: DEXAMETHASONE 4 MG TAB PO SCH ×2 (09:33→20:25)
[2018-08-24] MEDS: DOCUSATE 100 MG CAP PO SCH (09:33)
--- NOTE | 2018-08-24 09:45 | P.CONS ---
History of Present Illness - Reason for Consult Consult date: 08/24/18 Elevated amylase Requesting physician: Con Stevenson - Chief Complaint Fever nausea vomiting - History of Present Illness 73-year-old female patient of Dr. Dr. Vides recently diagnosed with metastatic non-small cell lung cancer brain bone metastasis. Patient presents with intractable nonbloody nausea vomiting and fever chills T-max 101.2 without abdominal pain. Patient started palliative radiation therapy to her spine and femur last week and to the brain on Tuesday. Consult requested for elevated amylase. Admission amylase 411 presently 137. Lipase 242 presently 120. Total bilirubin 0.6. AST 42. ALT 34. AP 218. White count 2.9-to 5.1. Hemoglobin 11.6. Platelet 190. INR 1.0. Influenza screen nonreactive. Urinalysis unremarkable. Blood cultures pending. Denies hematemesis hematochezia melena. No history of liver or pancreatic or biliary disorders. Ultrasound abdomen reported gallbladder wall 0.2 cm. CBD 0.5 cm. Pancreatic duct measuring 0.4 cm at the body. CT chest abdomen and pelvis 08/07/2018 reported large left upper lobe bronchiogenic mass with hilar adenopathy numerous osseous metastatic lesions. No bowel wall obstruction, pancreatic or biliary obstruction. No history of pancreatitis. No history of alcoholism. Review of Systems Constitutional: Admitted with fever chills denies, sweats, weight gain, or loss. HEENT: Negative for migraines, blurred vision or loss, earaches, drainage, tinnitus, oral mucosal lesions, dysphagia, or odynophagia. CARDIAC: Negative for chest pain, arrhythmias, or palpitation. RESPIRATORY: Negative for shortness of breath, hemoptysis, cough, or sputum production. GI: See HPI for pertinent findings. : Negative for hematuria, urgency, frequency, polyuria, or dysuria. GYNc: Denies possibility of . Negative vaginal discharge. MUSCULOSKELETAL: Negative for muscle aches, swelling, arthritis, and arthralgias. NEUROLOGIC: Negative for stroke or TIA. ENDOCRINE: Negative for thyroid problems. SKIN: Negative for rash or itching. PSYCHIATRIC: Negative history for depression and anxiety Past Medical History Past Medical History: Cancer, Hyperlipidemia, Hypertension, Pneumonia, Thyroid Disorder Additional Past Medical History / Comment(s): Back pain since May 2018. Lung Ca with mets to brain and bone. History of Any Multi-Drug Resistant Organisms: None Reported Past Surgical History: Orthopedic Surgery, Tonsillectomy Additional Past Surgical History / Comment(s): colonoscopy, left hip replacement Past Anesthesia/Blood Transfusion Reactions: No Reported Reaction Past Psychological History: No Psychological Hx Reported Additional Psychological History / Comment(s): Single and her daughter helps take care of her. No animals in the home. no recent travel. 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 No alcohol use Smoking Status: Former smoker Past Alcohol Use History: Rare Past Drug Use History: None Reported - Past Family History Mother Additional Family Medical History / Comment(s): diabetes Medications and Allergies Home Medications Medication Instructions Recorded Confirmed Type Aspirin 81 mg PO HS 12/12/14 08/23/18 History Atenolol [Tenormin] 50 mg PO HS 12/12/14 08/23/18 History Calcium Carbonate/Vitamin D3 1 tab PO DAILY 12/12/14 08/23/18 History [Caltrate 600 Plus D3 Tablet] Losartan/Hydrochlorothiazide 1 tab PO DAILY 12/12/14 08/23/18 History [Hyzaar 100-25 Tablet] Multivitamin/Iron/Folic Acid 1 tab PO DAILY 12/12/14 08/23/18 History [Centrum Complete Multivit Tab] Simvastatin [Zocor] 40 mg PO HS 12/12/14 08/23/18 History Acetaminophen Tab [Tylenol] 1,000 mg PO Q6HR PRN 08/07/18 08/23/18 History Flaxseed Oil 1,000 mg PO DAILY 08/07/18 08/23/18 History Pantoprazole [Protonix] 40 mg PO AC-BID #60 tablet. 08/10/18 08/23/18 Rx Dexamethasone [Decadron] 4 mg PO BID 08/23/18 08/23/18 History Docusate [Colace] 100 mg PO DAILY 08/23/18 08/23/18 History HYDROcodone/APAP 7.5-325MG [[place] 1 tab PO Q6HR PRN 08/23/18 08/23/18 History 7.5-325] Memantine [Namenda] 10 mg PO DAILY 08/23/18 08/23/18 History Allergies Allergy/AdvReac Type Severity Reaction Status Date / Time No Known Allergies Allergy Verified 08/23/18 08:48 Physical Exam Vitals: Vital Signs Temp Pulse Pulse Resp BP Pulse Ox 08/24/18 07:36 15 08/24/18 07:15 99.3 F 81 17 110/70 97 08/24/18 00:56 98.3 F 86 15 134/79 96 08/23/18 19:44 98.9 F 99 16 142/81 98 08/23/18 17:30 99.4 F 08/23/18 16:33 101.0 F H 08/23/18 15:47 96 18 08/23/18 14:00 99.7 F H 96 18 129/75 96 Intake and Output 08/23/18 08/24/18 08/24/18 22:59 06:59 14:59 Intake Total 675 700 Balance 675 700 Intake: Intake, IV Titration 675 700 Amount Sodium Chloride 0.9% 1, 675 450 000 ml @ 75 mls/hr IV . [id number] [facility] Rx#:[id number] Vancomycin 1,500 mg In 250 Sodium Chloride 0.9% 250 ml @ 125 mls/hr IVPB Q12H [facility] Rx#:[id number] Other: Voiding Method Toilet # Voids 1 General appearance: The patient is alert, oriented, in no acute distress. HET: Head is normocephalic and atraumatic. Pupils are equal and reactive. Oropharynx is clear without lesions. Neck: Supple without lymphadenopathy. Trachea midline. Heart: S1 S2. Regular rate and rhythm. Lungs: No crackles or wheezes are heard. Abdomen: Soft, nontender, nondistended with bowel sounds. No peritoneal signs. No palpable organomegaly or masses. Extremities: Normal skin color and turgor. No cyanosis, rash, ulceration, clubbing, or edema. Radial and pedal pulses are 2/4 bilaterally. Neurological: No focal deficits. Strength and sensation are grossly intact. Results CBC & Chem 7: 08/24/18 07:46 08/24/18 07:46 Labs: Abnormal Lab Results - Last 24 Hours (Table) 08/23/18 08/24/18 08/24/18 Range/Units 01:35 07:46 07:46 WBC 2.9 L (3.8-10.6) k/uL Lymphocytes # 0.1 L (1.0-4.8) k/uL Sodium 135 L (137-145) mmol/L Glucose 103 H (74-99) mg/dL Calcium 7.6 L (8.4-10.2) mg/dL AST 53 H (14-36) U/L Alkaline Phosphatase 212 H (38-126) U/L Total Protein 5.4 L (6.3-8.2) g/dL Albumin 2.9 L (3.5-5.0) g/dL Amylase 411 H* (30-110) U/L 08/24/18 Range/Units 07:46 WBC (3.8-10.6) k/uL Lymphocytes # (1.0-4.8) k/uL Sodium (137-145) mmol/L Glucose (74-99) mg/dL Calcium (8.4-10.2) mg/dL AST (14-36) U/L Alkaline Phosphatase (38-126) U/L Total Protein (6.3-8.2) g/dL Albumin (3.5-5.0) g/dL Amylase 137 H (30-110) U/L Microbiology - Last 24 Hours (Table) 08/23/18 01:35 Blood Culture - Preliminary Blood No Growth after 24 hours 08/23/18 03:10 Urine Culture - Preliminary Urine,Voided US - abdomen: report reviewed (Dr. Bee) Assessment and Plan Assessment: Impression: 1. 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 Amylase enzyme secretion can be seen in certain malignancies lung being one of them. Subacute pancreatitis cannot be entirely excluded but felt to be less likely considering patient presented without abdominal pain with no history of prior pancreatitis attacks and recent imaging not supporting obvious pancreatic biliary pathology. 2. Fever of unclear origin presently being evaluated by infectious disease possible reactive. 3. Metastatic non-small cell lung carcinoma with bone and brain metastasis. Recommendations: 1. Considering amylase lipase is normal this morning LFTs unremarkable recommend no further workup. Will obtain a CA-19-9 in regards to dilated pancreatic duct on ultrasound imaging however CT imaging reported no obvious pancreatic biliary pathology. If CA-19-9 results in significant elevation would advise MRI of the pancreas and/or endoscopic ultrasound. 2. Continue symptomatic supportive measures. Diet as tolerated. We'll follow with you. Thank you for this kind referral and the opportunity to participate in the care of your patient. This consultation was discussed with Dr. Velocci. The impression and plan of care have been directed as dictated.
--- NOTE | 2018-08-24 09:48 | P.PN ---
Subjective Progress Note Date: 08/24/18 This is a 73-year-old female presented to the emergency room with complaints of fever. Patient has a recent diagnosis of metastatic cancer to the spine. Patient recently admitted for back pain and was discovered she has missed has to cancer to spine and brain. At that time patient underwent bronchoscopy of lung mass started palliative radiation to right femur, spine and brain. Today patient presented with complaints of fever. Patient states fever started last night. Patient states fever was also associated with nausea and vomiting. Patient denies cough or congestion. Patient denies any urinary burning or frequency. Patient denies any upper respiratory symptoms. Patient denies any rash or open sores. Patient is a known past medical history of lung cancer with metastases to brain and bone, hyperlipidemia, hypertension and thyroid disorder. Urinary analysis completed and was negative. Patient also negative for influenza. Chest x-ray completed showing irregular density at the left pulmonary hilum consistent with scarring unchanged compared to 08/07/2018. Normal heart no heart failure. Patient's temp 101.2. Patient started on vancomycin and Zosyn. Dr. Leigh for oncology services consulted. Dr. Dinh consulted for infectious disease. Blood cultures have been ordered. Dr. Victor per radiology been consulted for patient's palliative radiation treatments. Ultrasound of abdomen ordered due to patient complaints of nausea and vomiting. This time patient denies chest pain or shortness breath. Patient denies nausea vomiting or diarrhea. Patient denies any urinary burning or frequency. On 08/24/2018 patient is currently resting in bed. Patient states she feels much improved. Patient did have a temp of 101 last night. This time patient denies chest pain or shortness breath. Patient denies nausea vomiting or diarrhea. Patient denies any urinary burning or frequency. Objective - Vital Signs Vital signs: Vital Signs Temp 99.3 F 08/24/18 07:15 Pulse 81 08/24/18 07:15 Resp 15 08/24/18 07:36 BP 110/70 08/24/18 07:15 Pulse Ox 97 08/24/18 07:15 Intake & Output 08/23/18 08/24/18 08/24/18 18:59 06:59 18:59 Intake Total 900 1375 Balance 900 1375 Intake: Intake, IV Titration 500 1375 Amount Piperacillin-Tazobactam 3 250 .375 gm In Sodium Chloride 0.9% 100 ml @ 25 mls/hr IVPB ONCE STA Rx# :[id number] Sodium Chloride 0.9% 1, 1125 000 ml @ 75 mls/hr IV . [id number] [facility] Rx#:[id number] Vancomycin 1,500 mg In 250 250 Sodium Chloride 0.9% 250 ml @ 125 mls/hr IVPB Q12H [facility] Rx#:[id number] Oral 400 Other: Voiding Method Toilet # Voids 1 - Exam Head normocephalic Neck supple Lungs clear to auscultation bilaterally no wheezing or crackles Heart regular rate and rhythm S1-S2, no rub or gallop Abdomen is soft nontender nondistended positive bowel sounds no hepatosplenomegaly Extremities no edema Neuro alert and orientated to 3 - Labs CBC & Chem 7: 08/24/18 07:46 08/24/18 07:46 Labs: Abnormal Lab Results - Last 24 Hours (Table) 08/23/18 08/24/18 08/24/18 Range/Units 01:35 07:46 07:46 WBC 2.9 L (3.8-10.6) k/uL Lymphocytes # 0.1 L (1.0-4.8) k/uL Sodium 135 L (137-145) mmol/L Glucose 103 H (74-99) mg/dL Calcium 7.6 L (8.4-10.2) mg/dL AST 53 H (14-36) U/L Alkaline Phosphatase 212 H (38-126) U/L Total Protein 5.4 L (6.3-8.2) g/dL Albumin 2.9 L (3.5-5.0) g/dL Amylase 411 H* (30-110) U/L 08/24/18 Range/Units 07:46 WBC (3.8-10.6) k/uL Lymphocytes # (1.0-4.8) k/uL Sodium (137-145) mmol/L Glucose (74-99) mg/dL Calcium (8.4-10.2) mg/dL AST (14-36) U/L Alkaline Phosphatase (38-126) U/L Total Protein (6.3-8.2) g/dL Albumin (3.5-5.0) g/dL Amylase 137 H (30-110) U/L Microbiology - Last 24 Hours (Table) 08/23/18 01:35 Blood Culture - Preliminary Blood No Growth after 24 hours 08/23/18 03:10 Urine Culture - Preliminary Urine,Voided Assessment and Plan Assessment: 1. Fever of unknown origin. Patient has been on dexamethasone per oncology services. Urinary analysis negative. Negative for influenza. Chest x-ray completed showing irregular density at the left pulmonary hilum consistent with scarring unchanged compared to 08/07/2028. Normal heart. Normal heart failure. Blood and urine cultures have been ordered. Dr. Dinh for infectious disease has been ordered. She started on vancomycin and Zosyn. White blood cell 5.1. Temp 101.6. Per Dr. Dinh infectious disease here can' t be directly related to her current radiation therapy effects of that especially since she has been receiving some brain irradiation, continue Zosyn and vancomycin for IV antibiotics. 2. Nausea and vomiting. 411 and lipase 242. GI services have been consulted. Ultrasound of abdomen completed showing prominence of the pancreatic duct measuring 0.4 cm body. Normal less than 2.[address] with contrast increase could be performed consider ERCP for additional evaluation. 3. Recent diagnosis of lung cancer with metastases to spine and brain. Patient currently undergoing palliative radiation to spine femur and brain. Oncology services and radiology services consulted. Cytology report from bronchoscopy on 08/09/2018 showing highly atypical metaplastic bronchial cells suspicious for non-small cell carcinoma. 4. Hyponatremia. Sodium 122. Patient received 1 L of normal saline in emergency room. Normal saline at 75 and fluid restrictions ordered. Sodium improving to 135 5. History of hyperlipidemia. Zocor on hold due to elevated liver enzymes 6. History of essential hypertension. Beta yanira resumed. Hyzaar currently on hold 7. Hypothyroidism. Continue Synthroid DVT prophylaxis heparin. GI prophylaxis Protonix I performed an examination of the patient and discussed their management with the Nurse Practitioner. I have reviewed the Nurse Practitioner's notes and agree with the documented findings and plan of care
[2018-08-24 15:43] VITALS: BMI 29.7
--- NOTE | 2018-08-24 16:32 | P.CONS ---
History of Present Illness - Reason for Consult Consult date: 08/24/18 metastatic NSCLC Requesting physician: Carol Arauz - Chief Complaint fever unknown origin - History of Present Illness Ms. Perry initially was seen in consult at [facility] 08/08/[address] Leigh when she presented with right lower back pain that had been present for some months, intermittent with radiation down the right leg, then it become progressively more severe and constant over the previous 3-4 weeks, x-rays incidentally revealed a possible left lower lobe opacity. She was started on antibiotics without relief, she went to ER where x-ray showed a masslike density in the left lower lobe, CT CAP showed widespread metastatic disease with a primary in the left hilum measuring 4 x 4.2 x 3.5 cm, bone metastasis of the thoracic and lumbar spine, MRI of spine did not show cord compression, MRI brain showed multiple bilateral metastasis. Bronchoscopy with biopsy was done on 08/09/18, path positive for non-small cell carcinoma, most consistent with moderately differentiated adenocarcinoma, biomarkers pending. She was started on palliative radiation to the T-spine, as well as the whole brain and right femoral head. She is due to complete XRT soon, f/u in the with Dr. Leigh. Pt admitted from home with fevers, persistent over the last 24 hours, some chills, no difficulty swallowing, acute changes in appetite, chest pain, productive cough, hemoptysis, difficulty breathing, early satiety, abd pain, distension, dysuria, hematuria, diarrhea, swelling or pain. Review of Systems 14 point ROS as stated in HPI Past Medical History Past Medical History: Cancer, Hyperlipidemia, Hypertension, Pneumonia, Thyroid Disorder Additional Past Medical History / Comment(s): Back pain since May 2018. Lung Ca with mets to brain and bone. History of Any Multi-Drug Resistant Organisms: None Reported Past Surgical History: Orthopedic Surgery, Tonsillectomy Additional Past Surgical History / Comment(s): colonoscopy, left hip replacement Past Anesthesia/Blood Transfusion Reactions: No Reported Reaction Past Psychological History: No Psychological Hx Reported Additional Psychological History / Comment(s): Single and her daughter helps take care of her. No animals in the home. no recent travel. 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 History of smoking. No alcohol use Smoking Status: Former smoker Past Alcohol Use History: Rare Past Drug Use History: None Reported - Past Family History Mother Additional Family Medical History / Comment(s): diabetes Medications and Allergies Home Medications Medication Instructions Recorded Confirmed Type Aspirin 81 mg PO HS 12/12/14 08/23/18 History Atenolol [Tenormin] 50 mg PO HS 12/12/14 08/23/18 History Calcium Carbonate/Vitamin D3 1 tab PO DAILY 12/12/14 08/23/18 History [Caltrate 600 Plus D3 Tablet] Losartan/Hydrochlorothiazide 1 tab PO DAILY 12/12/14 08/23/18 History [Hyzaar 100-25 Tablet] Multivitamin/Iron/Folic Acid 1 tab PO DAILY 12/12/14 08/23/18 History [Centrum Complete Multivit Tab] Simvastatin [Zocor] 40 mg PO HS 12/12/14 08/23/18 History Acetaminophen Tab [Tylenol] 1,000 mg PO Q6HR PRN 08/07/18 08/23/18 History Flaxseed Oil 1,000 mg PO DAILY 08/07/18 08/23/18 History Pantoprazole [Protonix] 40 mg PO AC-BID #60 tablet. 08/10/18 08/23/18 Rx Dexamethasone [Decadron] 4 mg PO BID 08/23/18 08/23/18 History Docusate [Colace] 100 mg PO DAILY 08/23/18 08/23/18 History HYDROcodone/APAP 7.5-325MG [Fords 1 tab PO Q6HR PRN 08/23/18 08/23/18 History 7.5-325] Memantine [Namenda] 10 mg PO DAILY 08/23/18 08/23/18 History Allergies Allergy/AdvReac Type Severity Reaction Status Date / Time No Known Allergies Allergy Verified 08/23/18 08:48 Physical Exam Vitals: Vital Signs Temp Pulse Pulse Resp BP Pulse Ox 08/24/18 14:25 98.8 F 90 16 119/67 98 08/24/18 07:36 15 08/24/18 07:15 99.3 F 81 17 110/70 97 08/24/18 00:56 98.3 F 86 15 134/79 96 08/23/18 19:44 98.9 F 99 16 142/81 98 08/23/18 17:30 99.4 F 08/23/18 16:33 101.0 F H Intake and Output 08/24/18 08/24/18 08/24/18 06:59 14:59 22:59 Intake Total 700 596 Balance 700 596 Intake: Intake, IV Titration 700 Amount Sodium Chloride 0.9% 1, 450 000 ml @ 75 mls/hr IV . [id number] [facility] Rx#:[id number] Vancomycin 1,500 mg In 250 Sodium Chloride 0.9% 250 ml @ 125 mls/hr IVPB Q12H [facility] Rx#:[id number] Oral 596 Other: # Voids 1 2 Weight 86.183 kg - Constitutional General appearance: cooperative, no acute distress, obese - EENT Eyes: anicteric sclerae, EOMI ENT: hearing grossly normal, normal oropharynx - Neck Neck: no lymphadenopathy - Respiratory Respiratory: bilateral: CTA - Cardiovascular Heart sounds: normal: S1, S2 Abnormal Heart Sounds: no systolic murmur, no diastolic murmur, no rub, no S3 Gallop, no S4 Gallop, no click, no other leg Peripheral Edema: bilateral: None - Gastrointestinal General gastrointestinal: no absent bowel sounds, no decreased bowel sounds, no distended, no hepatomegaly, no hyperactive bowel sounds, normal bowel sounds, no organomegaly, no rigid, no scaphoid, soft, no splenomegaly, no tenderness, no umbilical hernia, no ventral hernia - Integumentary Integumentary: normal - Neurologic Neurologic: CNII-XII intact - Musculoskeletal Musculoskeletal: strength equal bilaterally - Psychiatric Psychiatric: A&O x's 3, appropriate affect, intact judgment & insight Results CBC & Chem 7: 08/24/18 07:46 08/24/18 07:46 Labs: Abnormal Lab Results - Last 24 Hours (Table) 08/24/18 08/24/18 08/24/18 Range/Units 07:46 07:46 07:46 WBC 2.9 L (3.8-10.6) k/uL Lymphocytes # 0.1 L (1.0-4.8) k/uL Sodium 135 L (137-145) mmol/L Glucose 103 H (74-99) mg/dL Calcium 7.6 L (8.4-10.2) mg/dL AST 53 H (14-36) U/L Alkaline Phosphatase 212 H (38-126) U/L Total Protein 5.4 L (6.3-8.2) g/dL Albumin 2.9 L (3.5-5.0) g/dL Amylase 137 H (30-110) U/L Microbiology - Last 24 Hours (Table) 08/23/18 03:10 Urine Culture - Final Urine,Voided 08/23/18 01:35 Blood Culture - Preliminary Blood No Growth after 24 hours Chest x-ray: report reviewed US - abdomen: report reviewed Assessment and Plan (1) Fever of unknown origin Narrative/Plan: Pancultures are negative as of today, fever patter broke yesterday afternoon, empiric antibiotics ordered. ID Consulted, GI following due to abnormal labs. Current Visit: Yes Status: Acute Priority: High Code(s): R50.9 - FEVER, UNSPECIFIED SNOMED Code(s): 5538387 (2) Metastatic lung cancer (metastasis from lung to other site) Narrative/Plan: Pt has started XRT to back and femur last week and brain on Tuesday. Biomarkers on tumor are still pending. F/U with Dr. Leigh in just over a week is sched for results and treatment recommendations. Current Visit: Yes Status: Acute Priority: High Code(s): C34.90 - MALIGNANT NEOPLASM OF UNSP PART OF UNSP BRONCHUS OR LUNG SNOMED Code(s): 00811910
[2018-08-24] MEDS: ASPIRIN 81 MG PO SCH (20:25)
[2018-08-24] MEDS: ATENOLOL 50 MG TAB PO SCH (20:25)
[2018-08-24] MEDS: HEPARIN SODIUM,PORCINE 5,000 UNIT/ML 1 ML VIAL SQ SCH (20:26)
[2018-08-25] MEDS: PIPERACILLIN-TAZOBACTAM 3.375 GM in SODIUM CHLORIDE 0.9% 100 ML IVPB SCH (04:03)
[2018-08-25] MEDS ORDERED: VANCOMYCIN TROUGH DUE 1 EACH MISC MISCELLANE ONE (05:00)
[2018-08-25 05:56] LABS: Basophils % (A) 1 %; Eosinophils % (A) 1 %; HCT 30.1 % (34.0-46.0); HGB 10.2 gm/dL (11.4-16.0); Lymphocytes # (A) 0.1 k/uL (1.0-4.8); Lymphocytes % (A) 5 %; MCH 30.3 pg (25.0-35.0); MCV 89.2 fL (80.0-100.0); Mean Platelet Volume 6.8; Monocytes # (A) 0.1 k/uL (0-1.0); Monocytes % (A) 4 %; Neutrophils % (A) 86 %; Platelet Count 137 k/uL (150-450); RBC 3.37 m/uL (3.80-5.40); RDW 13.4 % (11.5-15.5); WBC 2.4 k/uL (3.8-10.6)
[2018-08-25] MEDS: VANCOMYCIN 1,500 MG in SODIUM CHLORIDE 0.9% 250 ML IVPB SCH (06:03)
[2018-08-25 06:06] LABS: Albumin 2.7 g/dL (3.5-5.0); Calcium 7.7 mg/dL (8.4-10.2); Potassium 4.2 mmol/L (3.5-5.1); Total Bilirubin 0.5 mg/dL (0.2-1.3)
[2018-08-25] MEDS: HYDROcodone/APAP 5-325MG 1 EACH TAB PO PRN ×3 (06:07→21:50)
[2018-08-25] MEDS: DOCUSATE 100 MG CAP PO SCH (08:23)
[2018-08-25] MEDS: DEXAMETHASONE 4 MG TAB PO SCH ×2 (08:23→22:56)
[2018-08-25] MEDS: MEMANTINE 10 MG TAB PO SCH (08:23)
[2018-08-25] MEDS: CALCIUM CARB-VIT D 500MG-200UN 1 EACH TAB PO SCH (08:24)
[2018-08-25] MEDS: PANTOPRAZOLE 40 MG TABLET PO SCH ×2 (08:24→18:16)
[2018-08-25] MEDS: HEPARIN SODIUM,PORCINE 5,000 UNIT/ML 1 ML VIAL SQ SCH ×2 (08:24→21:50)
[2018-08-25] MEDS: MULTIVITAMINS, THERA 1 EACH TAB PO SCH (08:24)
[2018-08-25] MEDS ORDERED: LACTOBACILLUS ACIDOPH & BULGAR 1 EACH PACKET PO STA (09:26)
--- NOTE | 2018-08-25 09:59 | P.PN ---
Subjective Progress Note Date: 08/25/18 Principal diagnosis: Metastatic lung cancer hyperamylasemia 73-year-old female receiving radiation treatment for metastatic lung cancer bone and brain involvement seen in consultation yesterday for hyperamylasemia since resolved. CA-19-9 marker elevated 17,000 range. Ultrasound showed dilated pancreatic duct. Scheduled for brain radiation treatment today. Objective - Vital Signs Vital signs: Vital Signs Temp 98.4 F 08/25/18 08:22 Pulse 88 08/25/18 07:30 Resp 16 08/25/18 07:30 BP 124/66 08/25/18 07:30 Pulse Ox 98 08/25/18 07:30 Intake & Output 08/24/18 08/25/18 08/25/18 18:59 06:59 18:59 Intake Total 596 1830 250 Balance 596 1830 250 Weight 86.183 kg Intake: Intake, IV Titration 1250 Amount Piperacillin-Tazobactam 3 100 .375 gm In Sodium Chloride 0.9% 100 ml @ 25 mls/hr IVPB Q8H [facility] Rx#: [id number] Sodium Chloride 0.9% 1, 900 000 ml @ 75 mls/hr IV . [id number] [facility] Rx#:[id number] Vancomycin 1,500 mg In 250 Sodium Chloride 0.9% 250 ml @ 125 mls/hr IVPB Q12H [facility] Rx#:[id number] Oral 596 580 250 Other: # Voids 2 1 # Bowel Movements 1 - Exam General appearance: The patient is alert, oriented, in no acute distress. HET: Head is normocephalic and atraumatic. Pupils are equal and reactive. Oropharynx is clear without lesions. Neck: Supple without lymphadenopathy. Trachea midline. Heart: S1 S2. Regular rate and rhythm. Lungs: No crackles or wheezes are heard. Abdomen: Soft, nontender, nondistended with bowel sounds. No peritoneal signs. No palpable organomegaly or masses. Extremities: Normal skin color and turgor. No cyanosis, rash, ulceration, clubbing, or edema. Radial and pedal pulses are 2/4 bilaterally. Neurological: No focal deficits. Strength and sensation are grossly intact. - Labs CBC & Chem 7: 08/25/18 05:32 08/25/18 05:32 Labs: Abnormal Lab Results - Last 24 Hours (Table) 08/24/18 08/25/18 08/25/18 Range/Units 07:46 05:32 05:32 WBC 2.4 L (3.8-10.6) k/uL RBC 3.37 L (3.80-5.40) m/uL Hgb 10.2 L (11.4-16.0) gm/dL Hct 30.1 L (34.0-46.0) % Plt Count 137 L (150-450) k/uL Lymphocytes # 0.1 L (1.0-4.8) k/uL Sodium 133 L (137-145) mmol/L Glucose 135 H (74-99) mg/dL Calcium 7.7 L (8.4-10.2) mg/dL AST 42 H (14-36) U/L Alkaline Phosphatase 180 H (38-126) U/L Total Protein 5.0 L (6.3-8.2) g/dL Albumin 2.7 L (3.5-5.0) g/dL CA 19-9 Antigen 51393.0 H (0.0-34.9) U/mL Microbiology - Last 24 Hours (Table) 08/23/18 01:35 Blood Culture - Preliminary Blood No Growth after 48 hours 08/23/18 03:10 Urine Culture - Final Urine,Voided Assessment and Plan Assessment: Impression: 1. Hyperamylasemia with grossly elevated CA-19-9 marker highly suspicious for pancreatic biliary malignancy biochemical improvement of amylase still suspect elevation secondary to malignancy. Amylase enzyme secretion can be seen in certain malignancies lung being one of them now suspicious for pancreatic involvement. Subacute pancreatitis cannot be entirely excluded but felt to be less likely considering patient presented without abdominal pain with no history of prior pancreatitis attacks and recent imaging not supporting obvious pancreatic biliary pathology. 2. Fever of unclear origin presently being evaluated by infectious disease possible reactive. 3. Metastatic non-small cell lung carcinoma with bone and brain metastasis. Recommendations: 1. MRI pancreas/MRCP with and without contrast. Case was discussed with oncology team this morning. CT imaging reported no obvious pancreatic biliary pathology. Patient could benefit from endoscopic ultrasound but will defer to the oncology team if this will be necessary for further treatment options. Proceed with brain radiation treatment today as scheduled. 2. Continue symptomatic supportive measures. Diet as tolerated. We'll follow with you. Assessment and plan a care discussed with Dr. Bee
--- NOTE | 2018-08-25 10:36 | P.PN ---
Subjective Progress Note Date: 08/25/18 This is a 73-year-old female presented to the emergency room with complaints of fever. Patient has a recent diagnosis of metastatic cancer to the spine. Patient recently admitted for back pain and was discovered she has missed has to cancer to spine and brain. At that time patient underwent bronchoscopy of lung mass started palliative radiation to right femur, spine and brain. Today patient presented with complaints of fever. Patient states fever started last night. Patient states fever was also associated with nausea and vomiting. Patient denies cough or congestion. Patient denies any urinary burning or frequency. Patient denies any upper respiratory symptoms. Patient denies any rash or open sores. Patient is a known past medical history of lung cancer with metastases to brain and bone, hyperlipidemia, hypertension and thyroid disorder. Urinary analysis completed and was negative. Patient also negative for influenza. Chest x-ray completed showing irregular density at the left pulmonary hilum consistent with scarring unchanged compared to 08/07/2018. Normal heart no heart failure. Patient's temp 101.2. Patient started on vancomycin and Zosyn. Dr. Leigh for oncology services consulted. Dr. Dinh consulted for infectious disease. Blood cultures have been ordered. Dr. Victor per radiology been consulted for patient's palliative radiation treatments. Ultrasound of abdomen ordered due to patient complaints of nausea and vomiting. This time patient denies chest pain or shortness breath. Patient denies nausea vomiting or diarrhea. Patient denies any urinary burning or frequency. On 08/24/2018 patient is currently resting in bed. Patient states she feels much improved. Patient did have a temp of 101 last night. This time patient denies chest pain or shortness breath. Patient denies nausea vomiting or diarrhea. Patient denies any urinary burning or frequency. On 08/25/2018 patient is currently resting in bed. Patient expresses that she is very eager to go home. Patient has not had fever in 2 days. Patient did have a temp of 99.1. Patient's cancer antigen 19-9 came back at 17,063. Discussed case in depthly with Jaelyn STOCK ROLLER per GI services and oncology services. Due to new finding of elevated CA 19-9, pancreatic involvement should be explored and could change plan of care. MRCP has been ordered per GI services. Patient to receive scheduled radiation to spine have been brain today. At this time patient denies chest pain or shortness of breath. Patient denies nausea or vomiting. Patient is having loose stools likely related to antibiotics. Patient denies any urinary burning or frequency. Discussed case with infectious disease services. Patient no longer requiring IV antibiotics. Objective - Vital Signs Vital signs: Vital Signs Temp 98.4 F 08/25/18 08:22 Pulse 88 08/25/18 07:30 Resp 16 08/25/18 07:30 BP 124/66 08/25/18 07:30 Pulse Ox 98 08/25/18 07:30 Intake & Output 08/24/18 08/25/18 08/25/18 18:59 06:59 18:59 Intake Total 596 1830 250 Balance 596 1830 250 Weight 86.183 kg Intake: Intake, IV Titration 1250 Amount Piperacillin-Tazobactam 3 100 .375 gm In Sodium Chloride 0.9% 100 ml @ 25 mls/hr IVPB Q8H [facility] Rx#: [id number] Sodium Chloride 0.9% 1, 900 000 ml @ 75 mls/hr IV . [id number] [facility] Rx#:[id number] Vancomycin 1,500 mg In 250 Sodium Chloride 0.9% 250 ml @ 125 mls/hr IVPB Q12H [facility] Rx#:[id number] Oral 596 580 250 Other: # Voids 2 1 # Bowel Movements 1 - Exam Head normocephalic Neck supple Lungs clear to auscultation bilaterally no wheezing or crackles Heart regular rate and rhythm S1-S2, no rub or gallop Abdomen is soft nontender nondistended positive bowel sounds no hepatosplenomegaly Extremities no edema Neuro alert and orientated to 3 - Labs CBC & Chem 7: 08/25/18 05:32 08/25/18 05:32 Labs: Abnormal Lab Results - Last 24 Hours (Table) 08/24/18 08/25/18 08/25/18 Range/Units 07:46 05:32 05:32 WBC 2.4 L (3.8-10.6) k/uL RBC 3.37 L (3.80-5.40) m/uL Hgb 10.2 L (11.4-16.0) gm/dL Hct 30.1 L (34.0-46.0) % Plt Count 137 L (150-450) k/uL Lymphocytes # 0.1 L (1.0-4.8) k/uL Sodium 133 L (137-145) mmol/L Glucose 135 H (74-99) mg/dL Calcium 7.7 L (8.4-10.2) mg/dL AST 42 H (14-36) U/L Alkaline Phosphatase 180 H (38-126) U/L Total Protein 5.0 L (6.3-8.2) g/dL Albumin 2.7 L (3.5-5.0) g/dL CA 19-9 Antigen 13578.0 H (0.0-34.9) U/mL Microbiology - Last 24 Hours (Table) 08/23/18 01:35 Blood Culture - Preliminary Blood No Growth after 48 hours 08/23/18 03:10 Urine Culture - Final Urine,Voided Assessment and Plan Assessment: 1. Fever of unknown origin. Patient has been on dexamethasone per oncology services. Urinary analysis negative. Negative for influenza. Chest x-ray completed showing irregular density at the left pulmonary hilum consistent with scarring unchanged compared to 08/07/2028. Normal heart. Normal heart failure. Blood and urine cultures have been ordered. Dr. Dinh for infectious disease has been ordered. She started on vancomycin and Zosyn. White blood cell 5.1. Temp 101.6. Per Dr. Dinh infectious disease here can' t be directly related to her current radiation therapy effects of that especially since she has been receiving some brain irradiation, continue Zosyn and vancomycin for IV antibiotics. Discussed case with Dr. Dinh per infectious disease. No need for antibiotics at this time. Fever likely related to cancer and radiation treatment. 2. Nausea and vomiting. 411 and lipase 242. GI services have been consulted. Ultrasound of abdomen completed showing prominence of the pancreatic duct measuring 0.4 cm body. Normal less than 2.[address] with contrast increase could be performed consider ERCP for additional evaluation. CA 19-9 76499. Discussed case GI and oncology services. Due to elevated cancer antigen concerns for pancreatic involvement should be investigated due to possible change in plan of care. MR ofthe pancreas and MRCP with and without contrast has been ordered per GI services. 3. Recent diagnosis of lung cancer with metastases to spine and brain. Patient currently undergoing palliative radiation to spine femur and brain. Oncology services and radiology services consulted. Cytology report from bronchoscopy on 08/09/2018 showing highly atypical metaplastic bronchial cells suspicious for non-small cell carcinoma. Patient to undergo palliative radiation today as scheduled 4. Hyponatremia. Sodium 122. Patient received 1 L of normal saline in emergency room. Normal saline at 75 and fluid restrictions ordered. Sodium improving to 135 5. History of hyperlipidemia. Zocor on hold due to elevated liver enzymes 6. History of essential hypertension. Beta yanira resumed. Hyzaar currently on hold 7. Hypothyroidism. Continue Synthroid DVT prophylaxis heparin. GI prophylaxis Protonix I performed an examination of the patient and discussed their management with the Nurse Practitioner. I have reviewed the Nurse Practitioner's notes and agree with the documented findings and plan of care
[2018-08-25] MEDS: SODIUM CHLORIDE 0.9% 1,000 ML IV SCH (15:37)
--- NOTE | 2018-08-25 17:59 | MR ---
EXAMINATION TYPE: MR pancreas / mrcp wo/w con DATE OF EXAM: 08/25/2018 COMPARISON: HISTORY: Lung CA, Abn. blood work, R/O Pancreatic biliary mass CONTRAST: Standard multiplanar, multisequence MRI departmental protocol utilizing 7.5 mL intravenous Gadavist g adolinium contrast. FINDINGS: Liver shows no focal defect. Bile ducts are not dilated. Spleen has normal size and contour . Gallbladder appears normal. Kidneys have normal size without evidence of hydronephrosis. There is n o adrenal mass. There is mild prominence of the distal pancreatic duct. I see no discrete pancreatic mass. Proximal pancreatic duct appears normal. Distal pancreatic duct measures up to 6 mm. There is n o ascites. There is no sign of retroperitoneal adenopathy. There is no evidence of pleural effusion. I see no pathologic enhancement. IMPRESSION: There is mild enlargement of the distal pancreatic duct. No obstructing lesion seen. Clinical signifi cance is not clear. No evidence of pancreatic mass. Bile ducts appear normal.
--- NOTE | 2018-08-25 20:09 | P.PN ---
Subjective Progress Note Date: 08/25/18 Principal diagnosis: Metastatic Lung Cancer Feeling a little better today, afebrile. Objective - Vital Signs Vital signs: Vital Signs Temp 99.6 F 08/25/18 14:33 Pulse 95 08/25/18 14:33 Resp 16 08/25/18 18:22 BP 128/80 08/25/18 14:33 Pulse Ox 97 08/25/18 14:33 Intake & Output 08/25/18 08/25/18 08/26/18 06:59 18:59 06:59 Intake Total 1830 570 Balance 1830 570 Intake: Intake, IV Titration 1250 Amount Piperacillin-Tazobactam 3 100 .375 gm In Sodium Chloride 0.9% 100 ml @ 25 mls/hr IVPB Q8H [facility] Rx#: [id number] Sodium Chloride 0.9% 1, 900 000 ml @ 75 mls/hr IV . [id number] [facility] Rx#:[id number] Vancomycin 1,500 mg In 250 Sodium Chloride 0.9% 250 ml @ 125 mls/hr IVPB Q12H [facility] Rx#:[id number] Oral 580 570 Other: # Voids 1 1 # Bowel Movements 1 - Exam Constitutional General appearance: cooperative, no acute distress, obese - EENT Eyes: anicteric sclerae, EOMI ENT: hearing grossly normal, normal oropharynx - Neck Neck: no lymphadenopathy - Respiratory Respiratory: bilateral: CTA - Cardiovascular Heart sounds: normal: S1, S2 Abnormal Heart Sounds: no systolic murmur, no diastolic murmur, no rub, no S3 Gallop, no S4 Gallop, no click, no other leg Peripheral Edema: bilateral: None - Gastrointestinal General gastrointestinal: no absent bowel sounds, no decreased bowel sounds, no distended, no hepatomegaly, no hyperactive bowel sounds, normal bowel sounds, soft, no splenomegaly, no tenderness, Integumentary: normal - Neurologic Neurologic: CNII-XII intact - Musculoskeletal Musculoskeletal: strength equal bilaterally - Psychiatric Psychiatric: A&O x's 3, appropriate affect, intact judgment & insight - Labs CBC & Chem 7: 08/25/18 05:32 08/25/18 05:32 Labs: Abnormal Lab Results - Last 24 Hours (Table) 08/24/18 08/25/18 08/25/18 Range/Units 07:46 05:32 05:32 WBC 2.4 L (3.8-10.6) k/uL RBC 3.37 L (3.80-5.40) m/uL Hgb 10.2 L (11.4-16.0) gm/dL Hct 30.1 L (34.0-46.0) % Plt Count 137 L (150-450) k/uL Lymphocytes # 0.1 L (1.0-4.8) k/uL Sodium 133 L (137-145) mmol/L Glucose 135 H (74-99) mg/dL Calcium 7.7 L (8.4-10.2) mg/dL AST 42 H (14-36) U/L Alkaline Phosphatase 180 H (38-126) U/L Total Protein 5.0 L (6.3-8.2) g/dL Albumin 2.7 L (3.5-5.0) g/dL CA 19-9 Antigen 86939.0 H (0.0-34.9) U/mL Microbiology - Last 24 Hours (Table) 08/23/18 01:35 Blood Culture - Preliminary Blood No Growth after 48 hours Assessment and Plan Plan: Chest x-ray: report reviewed US - abdomen: report reviewed Assessment and Plan (1) Fever of unknown origin Narrative/Plan: Improving Current Visit: Yes Status: Acute Priority: High Code(s): R50.9 - FEVER, UNSPECIFIED SNOMED Code(s): 2486831 (2) Metastatic lung cancer (metastasis from lung to other site) - 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 Biomarkers on tumor are still pending. - Plan to F/U with Dr. Leigh in just over a week is sched for results and treatment recommendations. AMylase increased, CA19-9 increased, Reviewed MRI - This is likely secondary to metastatic disease, no diagnostic finding in MRI, no further diagnostic work-up required at this time as no change in plan of care. - Discussed findings in detail with GI Current Visit: Yes Status: Acute Priority: High Code(s): C34.90 - MALIGNANT NEOPLASM OF UNSP PART OF UNSP BRONCHUS OR LUNG SNOMED Code(s): 71219394
[2018-08-25] MEDS: ATENOLOL 50 MG TAB PO SCH (21:52)
[2018-08-25] MEDS: ASPIRIN 81 MG PO SCH (21:52)
[2018-08-26] MEDS: HYDROcodone/APAP 5-325MG 1 EACH TAB PO PRN ×2 (05:14→11:30)
[2018-08-26 07:54] VITALS: BP 126/79; PULSE 92; RESP 17; TEMP 98.9
[2018-08-26] MEDS: PANTOPRAZOLE 40 MG TABLET PO SCH (07:54)
[2018-08-26] MEDS: DOCUSATE 100 MG CAP PO SCH (07:54)
[2018-08-26] MEDS: CALCIUM CARB-VIT D 500MG-200UN 1 EACH TAB PO SCH (07:55)
[2018-08-26] MEDS: DEXAMETHASONE 4 MG TAB PO SCH (07:55)
[2018-08-26] MEDS: MEMANTINE 10 MG TAB PO SCH (07:55)
[2018-08-26] MEDS: HEPARIN SODIUM,PORCINE 5,000 UNIT/ML 1 ML VIAL SQ SCH (07:56)
[2018-08-26 08:28] LABS: Calcium 8.1 mg/dL (8.4-10.2); Potassium 3.9 mmol/L (3.5-5.1); Total Bilirubin 0.5 mg/dL (0.2-1.3); Total Protein 5.5 g/dL (6.3-8.2)
[2018-08-26 08:53] LABS: Basophils % (A) 0 %; Eosinophils % (A) 1 %; HCT 32.1 % (34.0-46.0); HGB 10.9 gm/dL (11.4-16.0); Lymphocytes # (A) 0.2 k/uL (1.0-4.8); Lymphocytes % (A) 9 %; MCH 30.5 pg (25.0-35.0); MCHC 33.8 g/dL (31.0-37.0); MCV 90.1 fL (80.0-100.0); Mean Platelet Volume 6.9; Monocytes # (A) 0.1 k/uL (0-1.0); Monocytes % (A) 6 %; Neutrophils % (A) 80 %; Platelet Count 149 k/uL (150-450); RBC 3.56 m/uL (3.80-5.40); RDW 13.7 % (11.5-15.5); WBC 2.5 k/uL (3.8-10.6)
--- NOTE | 2018-08-26 11:20 | P.DS ---
Providers Date of admission: 08/23/18 03:55 Expected date of discharge: 08/26/18 Attending physician: Con Stevenson Consults: 08/23/18 03:51 Consult Physician Routine Consulting Provider: Jacob Victor Consult Reason/Comments: Radiation Do you want consulting provider notified?: Yes 08/23/18 11:23 Consult Physician Routine Consulting Provider: Pratik Dinh Consult Reason/Comments: fever of unknown orgin Do you want consulting provider notified?: Yes Consult Physician Routine Consulting Provider: Khanh Leigh Consult Reason/Comments: new cancer diagnosis Do you want consulting provider notified?: Yes 08/23/18 13:30 Consult Physician Routine Consulting Provider: Kaitlyn Rooney Consult Reason/Comments: Elevated amylase Do you want consulting provider notified?: Yes Primary care physician[facility] Course: Diagnosis on discharge: 1. Fever of unknown origin. Patient has been on dexamethasone per oncology services. Urinary analysis negative. Negative for influenza. Chest x-ray completed showing irregular density at the left pulmonary hilum consistent with scarring unchanged compared to 08/07/2028. Normal heart. Normal heart failure. Blood and urine cultures have been ordered. Dr. Dinh for infectious disease has been ordered. She started on vancomycin and Zosyn. White blood cell 5.1. Temp 101.6. Per Dr. Dinh infectious disease here can' t be directly related to her current radiation therapy effects of that especially since she has been receiving some brain irradiation, continue Zosyn and vancomycin for IV antibiotics. Discussed case with Dr. Dinh per infectious disease. No need for antibiotics at this time. Fever likely related to cancer and radiation treatment. 2. Nausea and vomiting. 411 and lipase 242. GI services have been consulted. Ultrasound of abdomen completed showing prominence of the pancreatic duct measuring 0.4 cm body. Normal less than 2.[address] with contrast increase could be performed consider ERCP for additional evaluation. CA 19-9 [id number]. Discussed case GI and oncology services. Due to elevated cancer antigen concerns for pancreatic involvement should be investigated due to possible change in plan of care. MR ofthe pancreas and MRCP with and without contrast has been ordered per GI services. 3. Recent diagnosis of lung cancer with metastases to spine and brain. Patient currently undergoing palliative radiation to spine femur and brain. Oncology services and radiology services consulted. Cytology report from bronchoscopy on 08/09/2018 showing highly atypical metaplastic bronchial cells suspicious for non-small cell carcinoma. Patient to undergo palliative radiation today as scheduled 4. Hyponatremia. Sodium 122. Patient received 1 L of normal saline in emergency room. Normal saline at 75 and fluid restrictions ordered. Sodium improving to 135 5. History of hyperlipidemia. Zocor on hold due to elevated liver enzymes 6. History of essential hypertension. Beta yanira resumed. Hyzaar currently on hold 7. Hypothyroidism. Continue Synthroid Hospital course: This is a 73-year-old female presented to the emergency room with complaints of fever. Patient has a recent diagnosis of metastatic cancer to the spine. Patient recently admitted for back pain and was discovered she has missed has to cancer to spine and brain. At that time patient underwent bronchoscopy of lung mass started palliative radiation to right femur, spine and brain. Today patient presented with complaints of fever. Patient states fever started last night. Patient states fever was also associated with nausea and vomiting. Patient denies cough or congestion. Patient denies any urinary burning or frequency. Patient denies any upper respiratory symptoms. Patient denies any rash or open sores. Patient is a known past medical history of lung cancer with metastases to brain and bone, hyperlipidemia, hypertension and thyroid disorder. Urinary analysis completed and was negative. Patient also negative for influenza. Chest x-ray completed showing irregular density at the left pulmonary hilum consistent with scarring unchanged compared to 08/07/2018. Normal heart no heart failure. Patient's temp 101.2. Patient started on vancomycin and Zosyn. Dr. Leigh for oncology services consulted. Dr. Dinh consulted for infectious disease. Blood cultures have been ordered. Dr. Victor per radiology been consulted for patient's palliative radiation treatments. Ultrasound of abdomen ordered due to patient complaints of nausea and vomiting. This time patient denies chest pain or shortness breath. Patient denies nausea vomiting or diarrhea. Patient denies any urinary burning or frequency. On 08/24/2018 patient is currently resting in bed. Patient states she feels much improved. Patient did have a temp of 101 last night. This time patient denies chest pain or shortness breath. Patient denies nausea vomiting or diarrhea. Patient denies any urinary burning or frequency. On 08/25/2018 patient is currently resting in bed. Patient expresses that she is very eager to go home. Patient has not had fever in 2 days. Patient did have a temp of 99.1. Patient's cancer antigen 19-9 came back at 17,063. Discussed case in depthly with Jaelyn IDENTIFICATION TECHNICIAN per GI services and oncology services. Due to new finding of elevated CA 19-9, pancreatic involvement should be explored and could change plan of care. MRCP has been ordered per GI services. Patient to receive scheduled radiation to spine have been brain today. At this time patient denies chest pain or shortness of breath. Patient denies nausea or vomiting. Patient is having loose stools likely related to antibiotics. Patient denies any urinary burning or frequency. Discussed case with infectious disease services. Patient no longer requiring IV antibiotics. On 08/26/2018 patient is alert and oriented 3 in no apparent distress she is complaining of loose stools otherwise no complaints at this time there is no fever or chills no headache or dizziness no chest pain no shortness of breath no cough no nausea or vomiting no abdominal pain and no urinary symptoms. Input from oncology reviewed, patient can be discharged home at this time, possibly she has pancreatic involvement with cancer, however no need for any inpatient procedures at this time, she will be followed as outpatient by oncology for further evaluation. During this admission Hyzaar was discontinued due to evidence of low blood pressure and dehydration, also Zocor was discontinued due to slight elevation in liver enzymes. Patient received antibiotics during this admission however this were stopped, no evidence of any bacterial infection, elevated temperature most likely related to radiation therapy. Patient should be monitored closely as outpatient for any sign of infection. She is having loose stools on the day of discharge, if she started having significant diarrhea she would need to be checked for Clostridium difficile colitis. Patient Condition at Discharge: Serious Plan - Discharge Summary Discharge Rx Participant: Yes New Discharge Prescriptions: Continue Aspirin 81 mg PO HS Multivitamin/Iron/Folic Acid [Centrum Complete Multivit Tab] 1 tab PO DAILY Calcium Carbonate/Vitamin D3 [Caltrate 600 Plus D3 Tablet] 1 tab PO DAILY Atenolol [Tenormin] 50 mg PO HS Flaxseed Oil 1,000 mg PO DAILY Acetaminophen Tab [Tylenol] 1,000 mg PO Q6HR PRN PRN Reason: Pain Pantoprazole [Protonix] 40 mg PO AC-BID #60 tablet. Memantine [Namenda] 10 mg PO DAILY Docusate [Colace] 100 mg PO DAILY Dexamethasone [Decadron] 4 mg PO BID HYDROcodone/APAP 7.5-325MG [[place] 7.5-325] 1 tab PO Q6HR PRN PRN Reason: Pain Discontinued Simvastatin [Zocor] 40 mg PO HS Losartan/Hydrochlorothiazide [Hyzaar 100-25 Tablet] 1 tab PO DAILY Discharge Medication List Aspirin 81 mg PO HS 12/12/14 [History] Atenolol [Tenormin] 50 mg PO HS 12/12/14 [History] Calcium Carbonate/Vitamin D3 [Caltrate 600 Plus D3 Tablet] 1 tab PO DAILY [History] Multivitamin/Iron/Folic Acid [[place]rum Complete Multivit Tab] 1 tab PO DAILY 02/21 [History] Acetaminophen Tab [Tylenol] 1,000 mg PO Q6HR PRN 08/07/18 [History] Flaxseed Oil 1,000 mg PO DAILY 08/07/18 [History] Pantoprazole [Protonix] 40 mg PO AC-BID #60 tablet. 08/10/18 [Rx] Dexamethasone [Decadron] 4 mg PO BID 08/23/18 [History] Docusate [Colace] 100 mg PO DAILY 08/23/18 [History] HYDROcodone/APAP 7.5-325MG [[place] 7.5-325] 1 tab PO Q6HR PRN 08/23/18 [History] Memantine [Namenda] 10 mg PO DAILY 08/23/18 [History] Follow up Appointment(s)/Referral(s): Khanh Leigh MD [STAFF PHYSICIAN] - 09/04/18 11:00 am Kanika Vides MD [Primary Care Provider] - 1-2 days
== END 2018-08-26 12:07 | disposition home or self-care (01) | DRG 55 ==
LOC: EC 00:32 → 4SSUR 03:55
PROVIDERS: ADMIT Internal Medicine; ATTEND Internal Medicine
PROC: D0001ZZ Beam Radiation of Brain using Photons 1 - 10 MeV (ICD-10-PCS; principal; 2018-08-25)
DX: C79.31 Secondary malignant neoplasm of brain (principal); C34.90 Malignant neoplasm of unspecified part of unspecified bronchus or lung; C79.51 Secondary malignant neoplasm of bone; E87.1 Hypo-osmolality and hyponatremia; C78.89 Secondary malignant neoplasm of other digestive organs; E03.9 Hypothyroidism, unspecified; E78.5 Hyperlipidemia, unspecified; E86.0 Dehydration; I10 Essential (primary) hypertension; Z83.3 Family history of diabetes mellitus; Z85.118 Personal history of other malignant neoplasm of bronchus and lung; Z85.841 Personal history of malignant neoplasm of brain; Z87.891 Personal history of nicotine dependence; Z96.642 Presence of left artificial hip joint; Z79.82 Long term (current) use of aspirin; Z79.891 Long term (current) use of opiate analgesic; Z79.899 Other long term (current) drug therapy; R11.2 Nausea with vomiting, unspecified; Z79.890 Hormone replacement therapy
CPT/HCPCS: 36415; 71046; 74183; 76700; 77412; 80053; 80202; 81003; 82150; 83605; 83690; 85025; 85610; 85730; 86301; 87040; 87086; 87502; 94760; 96361; 96365; 96375; 99285

== ENCOUNTER 2018-08-30 10:48 | Inpatient (IN) | payer MEDICARE ==
[2018-08-30] MEDS ORDERED: ACETAMINOPHEN IV (For NPO) 1,000 MG in EMPTY BAG 1 BAG IVPB STA (11:26)
[2018-08-30] MEDS ORDERED: MORPHINE SULFATE 2 MG/ML SYRINGE IVP STA (11:27)
[2018-08-30] MEDS ORDERED: PANTOPRAZOLE 40 MG/10 ML VIAL IVP STA (11:27)
[2018-08-30] MEDS ORDERED: ONDANSETRON 4 MG/2 ML VIAL IVP STA (11:27)
--- NOTE | 2018-08-30 11:35 | ED ---
General Adult HPI - General Chief complaint: Abdominal Pain Stated complaint: low grade fever, vomiting Time Seen by Provider: 08/30/18 11:07 Source: patient, family, RN notes reviewed Mode of arrival: ambulatory Limitations: no limitations - History of Present Illness Initial comments: Patient is a pleasant 73-year-old female presenting to the emergency department with nausea vomiting and diarrhea. Patient had onset of diarrhea once last night but symptoms mostly started this morning. Patient does have history of lung cancer with metastasis to the brain and spine and femur. Patient is currently undergoing radiation therapy, last yesterday. Patient had low-grade fever at home. Patient has vomited 5 or 6 times. Patient has had diarrhea 5 or 6 times. Patient has some intermittent abdominal cramping. Patient did have similar symptoms a month or so ago and was admitted to the hospital with no source of fever found. Patient does request pain medication for her chronic back pain from [place] metastasis. Patient states she did have MRI scan done of her pancreas and abdomen 1 week ago. - Related Data Home Medications Medication Instructions Recorded Confirmed Aspirin 81 mg PO HS 12/12/14 08/30/18 Atenolol [Tenormin] 50 mg PO HS 12/12/14 08/30/18 Calcium Carbonate/Vitamin D3 1 tab PO DAILY 12/12/14 08/30/18 [Caltrate 600 Plus D3 Tablet] Multivitamin/Iron/Folic Acid 1 tab PO DAILY 12/12/14 08/30/18 [Centrum Complete Multivit Tab] Acetaminophen Tab [Tylenol] 1,000 mg PO Q6HR PRN 08/07/18 08/30/18 Flaxseed Oil 1,000 mg PO DAILY 08/07/18 08/30/18 Dexamethasone [Decadron] 4 mg PO DAILY 08/23/18 08/30/18 Docusate [Colace] 100 mg PO DAILY 08/23/18 08/30/18 HYDROcodone/APAP 7.5-325MG [[place] 1 tab PO Q6HR PRN 08/23/18 08/30/18 7.5-325] Memantine [Namenda] 10 mg PO BID 08/23/18 08/30/18 Previous Rx's Medication Instructions Recorded Pantoprazole [Protonix] 40 mg PO AC-BID #60 tablet. 08/10/18 Allergies Allergy/AdvReac Type Severity Reaction Status Date / Time No Known Allergies Allergy Verified 08/30/18 11:32 Review of Systems ROS Statement: Those systems with pertinent positive or pertinent negative responses have been documented in the HPI. ROS Other: All systems not noted in ROS Statement are negative. Constitutional: Reports: fever, chills Eyes: Denies: eye pain ENT: Denies: ear pain Respiratory: Denies: cough, dyspnea Cardiovascular: Denies: chest pain Endocrine: Reports: fatigue Gastrointestinal: Reports: abdominal pain, nausea, vomiting, diarrhea Genitourinary: Denies: dysuria Musculoskeletal: Reports: back pain (Chronic from bone metastasis) Skin: Denies: rash Neurological: Denies: headache Past Medical History Past Medical History: Cancer, Hyperlipidemia, Hypertension, Thyroid Disorder Additional Past Medical History / Comment(s): Back pain since May 2018. Lung Ca with mets to brain and bone. History of Any Multi-Drug Resistant Organisms: None Reported Past Surgical History: Orthopedic Surgery, Tonsillectomy Additional Past Surgical History / Comment(s): colonoscopy, left hip replacement cataract Past Anesthesia/Blood Transfusion Reactions: No Reported Reaction Past Psychological History: No Psychological Hx Reported Smoking Status: Former smoker Past Alcohol Use History: Rare Past Drug Use History: None Reported - Past Family History Mother Additional Family Medical History / Comment(s): diabetes General Exam Limitations: no limitations General appearance: alert, in no apparent distress Head exam: Present: atraumatic Eye exam: Present: normal appearance ENT exam: Present: mucous membranes dry Neck exam: Present: normal inspection Respiratory exam: Present: normal lung sounds bilaterally Cardiovascular Exam: Present: regular rate, normal rhythm GI/Abdominal exam: Present: soft, tenderness (Mild suprapubic tenderness), normal bowel sounds. Absent: distended, guarding, rebound, rigid, pulsatile mass Extremities exam: Present: normal inspection Neurological exam: Present: alert Psychiatric exam: Present: normal affect, normal mood Skin exam: Present: normal color Course Vital Signs 08/30/18 08/30/18 08/30/18 10:49 12:02 12:36 Temperature 100.8 F H Pulse Rate 98 89 90 Respiratory 18 18 18 Rate Blood Pressure 86/56 103/50 99/56 O2 Sat by Pulse 98 98 Oximetry 08/30/18 14:30 Temperature Pulse Rate 98 Respiratory 18 Rate Blood Pressure 92/55 O2 Sat by Pulse 98 Oximetry - Reevaluation(s) Reevaluation #1: 08/30/18 14:45 Patient does meet sepsis criteria. Blood culture and lactic acid have been ordered. IV antibiotics will be ordered. EKG Findings - EKG Comments: EKG Findings:: Normal sinus rhythm 90. MN 1:30. QRS 76. QT 352. QTC 4:30. Left axis. Normal QRS. No acute ST change. Medical Decision Making - Medical Decision Making Patient reevaluated. Patient updated. Case was discussed with detail with Dr. Hassan, who will consult on patient. He also requests surgical consult. Dr. Stevenson has been paged for admission. - Lab Data Result diagrams: 08/30/18 11:28 08/30/18 11:28 Lab Results 08/30/18 08/30/18 08/30/18 Range/Units 11:28 11:28 11:28 WBC 3.7 L (3.8-10.6) k/uL RBC 3.68 L (3.80-5.40) m/uL Hgb 11.4 (11.4-16.0) gm/dL Hct 33.2 L (34.0-46.0) % MCV 90.1 (80.0-100.0) fL MCH 31.0 (25.0-35.0) pg MCHC 34.4 (31.0-37.0) g/dL RDW 14.1 (11.5-15.5) % Plt Count 245 (150-450) k/uL Neutrophils % 83 % Lymphocytes % 8 % Monocytes % 5 % Eosinophils % 3 % Basophils % 0 % Neutrophils # 3.1 (1.3-7.7) k/uL Lymphocytes # 0.3 L (1.0-4.8) k/uL Monocytes # 0.2 (0-1.0) k/uL Eosinophils # 0.1 (0-0.7) k/uL Basophils # 0.0 (0-0.2) k/uL PT (9.0-12.0) sec INR (<1.2) APTT (22.0-30.0) sec Sodium 136 L (137-145) mmol/L Potassium 4.2 (3.5-5.1) mmol/L Chloride 103 (98-107) mmol/L Carbon Dioxide 25 (22-30) mmol/L Anion Gap 8 mmol/L BUN 28 H (7-17) mg/dL Creatinine 0.95 (0.52-1.04) mg/dL Est GFR (CKD-EPI)AfAm 69 (>60 ml/min/1.73 sqM) Est GFR (CKD-EPI)NonAf 60 (>60 ml/min/1.73 sqM) Glucose 106 H (74-99) mg/dL Plasma Lactic Acid Sumit 2.1 H* (0.7-2.0) mmol/L Calcium 8.6 (8.4-10.2) mg/dL Total Bilirubin 0.8 (0.2-1.3) mg/dL AST 56 H (14-36) U/L ALT 158 H (9-52) U/L Alkaline Phosphatase 145 H (38-126) U/L Total Protein 5.5 L (6.3-8.2) g/dL Albumin 3.0 L (3.5-5.0) g/dL Urine Color Urine Appearance (Clear) Urine pH (5.0-8.0) Ur Specific [place] (1.001-1.035) Urine Protein (Negative) Urine Glucose (UA) (Negative) Urine Ketones (Negative) Urine Blood (Negative) Urine Nitrite (Negative) Urine Bilirubin (Negative) Urine Urobilinogen (<2.0) mg/dL Ur Leukocyte Esterase (Negative) Urine WBC (0-5) /hpf Urine Mucus (None) /hpf 08/30/18 08/30/18 Range/Units 11:28 13:01 WBC (3.8-10.6) k/uL RBC (3.80-5.40) m/uL Hgb (11.4-16.0) gm/dL Hct (34.0-46.0) % MCV (80.0-100.0) fL MCH (25.0-35.0) pg MCHC (31.0-37.0) g/dL RDW (11.5-15.5) % Plt Count (150-450) k/uL Neutrophils % % Lymphocytes % % Monocytes % % Eosinophils % % Basophils % % Neutrophils # (1.3-7.7) k/uL Lymphocytes # (1.0-4.8) k/uL Monocytes # (0-1.0) k/uL Eosinophils # (0-0.7) k/uL Basophils # (0-0.2) k/uL PT 10.0 (9.0-12.0) sec INR 1.0 (<1.2) APTT 21.1 L (22.0-30.0) sec Sodium (137-145) mmol/L Potassium (3.5-5.1) mmol/L Chloride (98-107) mmol/L Carbon Dioxide (22-30) mmol/L Anion Gap mmol/L BUN (7-17) mg/dL Creatinine (0.52-1.04) mg/dL Est GFR (CKD-EPI)AfAm (>60 ml/min/1.73 sqM) Est GFR (CKD-EPI)NonAf (>60 ml/min/1.73 sqM) Glucose (74-99) mg/dL Plasma Lactic Acid Sumit (0.7-2.0) mmol/L Calcium (8.4-10.2) mg/dL Total Bilirubin (0.2-1.3) mg/dL AST (14-36) U/L ALT (9-52) U/L Alkaline Phosphatase (38-126) U/L Total Protein (6.3-8.2) g/dL Albumin (3.5-5.0) g/dL Urine Color Yellow Urine Appearance Cloudy H (Clear) Urine pH 6.0 (5.0-8.0) Ur Specific [place] 1.021 (1.001-1.035) Urine Protein 1+ H (Negative) Urine Glucose (UA) Negative (Negative) Urine Ketones Negative (Negative) Urine Blood Negative (Negative) Urine Nitrite Negative (Negative) Urine Bilirubin Negative (Negative) Urine Urobilinogen <2.0 (<2.0) mg/dL Ur Leukocyte Esterase Moderate H (Negative) Urine WBC 29 H (0-5) /hpf Urine Mucus Many H (None) /hpf - Radiology Data Radiology results: image reviewed (Chest x-ray shows no acute process. Abdominal x-ray shows possible small bowel obstruction and metastasis.) Disposition Clinical Impression: Urinary tract infection, Sepsis Disposition: ADMITTED IP TO THIS HOSP Is patient prescribed a controlled substance at d/c from ED?: No Referrals: Kanika Vides MD [Primary Care Provider] - 1-2 days Decision Time: 14:46
[2018-08-30] MEDS: SODIUM CHLORIDE 0.9% 500 ML 500 ML IV SCH (11:53)
[2018-08-30 11:58] LABS: Basophils % (A) 0 %; Eosinophils # (A) 0.1 k/uL (0-0.7); Eosinophils % (A) 3 %; HCT 33.2 % (34.0-46.0); HGB 11.4 gm/dL (11.4-16.0); Lymphocytes # (A) 0.3 k/uL (1.0-4.8); Lymphocytes % (A) 8 %; MCHC 34.4 g/dL (31.0-37.0); MCV 90.1 fL (80.0-100.0); Mean Platelet Volume 7.1; Monocytes # (A) 0.2 k/uL (0-1.0); Monocytes % (A) 5 %; Neutrophils # (A) 3.1 k/uL (1.3-7.7); Neutrophils % (A) 83 %; Platelet Count 245 k/uL (150-450); RBC 3.68 m/uL (3.80-5.40); RDW 14.1 % (11.5-15.5); WBC 3.7 k/uL (3.8-10.6)
[2018-08-30 12:11] LABS: Calcium 8.6 mg/dL (8.4-10.2); Potassium 4.2 mmol/L (3.5-5.1); Total Bilirubin 0.8 mg/dL (0.2-1.3); Total Protein 5.5 g/dL (6.3-8.2)
[2018-08-30 12:32] LABS: Partial Thromboplastin Time 21.1 sec (22.0-30.0)
--- NOTE | 2018-08-30 12:48 | XR ---
EXAMINATION TYPE: XR chest 2V DATE OF EXAM: 08/30/2018 COMPARISON: 08/23/2018 HISTORY: 73-year-old female with fever TECHNIQUE: PA and lateral views FINDINGS: Heart normal size. Aorta and pulmonary vasculature are within normal limits. No consolidation or pleu ral effusion. Endplate spondylosis thoracic spine. IMPRESSION: No acute process seen.
--- NOTE | 2018-08-30 13:12 | XR ---
Abdomen HISTORY: Pain, cancer Frontal view of the abdomen submitted on 2 images Lucent lesions present in the femoral head are noted. Patient is post left hip arthroplasty. There ar e fluid levels with some gas-distended loops of small bowel. No evident pneumoperitoneum. Multilevel spondylosis is noted, question some loss of height at the lower thoracic and upper lumbar vertebral b odies. Lung bases are clear. IMPRESSION: There may be underlying small bowel obstruction, correlate. Bone metastatic disease
[2018-08-30 14:00] LABS: Appearance,Urine Cloudy (Clear); Bilirubin,Urine Negative (Negative); Blood,Urine Negative (Negative); Color,Urine Yellow; Glucose,Urine (UA) Negative (Negative); Ketones,Urine Negative (Negative); Leukocyte Esterase,Urine Moderate (Negative); Mucus,Urine Many /hpf; Nitrite,Urine Negative (Negative); Protein,Urine 1+ (Negative); Specific Gravity,Urine 1.021 (1.001-1.035); Urobilinogen,Urine <2.0 mg/dL (<2.0); WBC,Urine 29 /hpf (0-5)
[2018-08-30] MEDS ORDERED: SODIUM CHLORIDE 0.9% 500 ML 500 ML IV STA (14:46)
[2018-08-30] MEDS ORDERED: ACETAMINOPHEN TAB 325 MG TAB PO PRN (14:47)
[2018-08-30] MEDS ORDERED: LEVOFLOXACIN 750MG-D5W PMX 750 MG in DEXTROSE/WATER 1 150ML.BAG IVPB STA (14:47)
[2018-08-30] MEDS ORDERED: NALOXONE 0.4 MG/ML 1 ML VIAL IV PRN (14:47)
[2018-08-30] MEDS ORDERED: METOCLOPRAMIDE 5 MG/ML 2 ML VIAL IVP PRN (14:49)
[2018-08-30] MEDS ORDERED: IOPAMIDOL-300 CONTRAST 30 ML VIAL (ORAL USE) PO PRN (14:49)
[2018-08-30] MEDS ORDERED: SODIUM CHLORIDE 0.9% 100 ML IV STA (15:15)
[2018-08-30] MEDS ORDERED: SODIUM CHLORIDE 0.9% 1,000 ML IV STA ×2 (15:15)
--- NOTE | 2018-08-30 17:34 | CT ---
EXAMINATION TYPE: CT abdomen pelvis w con DATE OF EXAM: 08/30/2018 COMPARISON: 08/07/2018 HISTORY: fever, vomiting CT DLP: 1080.2 mGycm Automated exposure control for dose reduction was used. TECHNIQUE: Helical acquisition of images was performed from the lung bases through the pelvis. CONTRAST: Performed with Oral Contrast and with IV Contrast, patient injected with 100 mL of Isovue 300. FINDINGS: There is some linear density at the right lung base. Heart size is normal. There is no pericardial ef fusion. There is no pleural effusion. Liver spleen pancreas appear normal. Gallbladder is large and measures 5.1 cm in diameter. There is no adrenal mass. Stomach appears normal. The kidneys show satisfactory contrast opacificatio n. There is no hydronephrosis. Ureters are not dilated. Appendix appears normal. There is left hip pr osthesis. There is no inguinal hernia. Bladder distends smoothly. There is small amount of free fluid in the pelvis. The terminal ileum appears normal. There is a long segment of mid small bowel with wall thickening. T he wall thickness measures up to 10 mm. Small bowel measures up to 2.6 cm in diameter. There are lyti c lesions seen in the lumbar spine at L3 L2 T12. There is lytic lesion in the left ilium. There is a lytic lesion in the right femoral head and also the right ilium. IMPRESSION: COMPARED TO LAST EXAM THERE IS NEW MID SMALL BOWEL WALL THICKENING INVOLVING THE MID ILEUM LIKELY REL ATED TO INFLAMMATORY PROCESS. THERE IS DISTENDED MORE PROXIMAL ILEUM THAT IS SUGGESTIVE OF SOME DEGRE E OF MECHANICAL OBSTRUCTION. THERE IS NEW MINIMAL ASCITES FLUID COMPARED TO LAST EXAM. NUMEROUS OSTEOLYTIC LESIONS CONSISTENT WITH METASTATIC DISEASE. DILATED GALLBLADDER IS SUGGESTIVE OF CHOLECYSTITIS.
[2018-08-30] MEDS: MORPHINE SULFATE 4 MG/ML SYRINGE IV PRN (17:39)
--- NOTE | 2018-08-30 22:35 | P.CONS ---
History of Present Illness - Reason for Consult Consult date: 08/30/18 - History of Present Illness Ms. Perry initially was seen in consult at [facility] 08/08/[address] Leigh when she presented with right lower back pain that had been present for some months, intermittent with radiation down the right leg, then it become progressively more severe and constant over the previous 3-4 weeks, x-rays incidentally revealed a possible left lower lobe opacity. She was started on antibiotics without relief, she went to ER where x-ray showed a masslike density in the left lower lobe, CT CAP showed widespread metastatic disease with a primary in the left hilum measuring 4 x 4.2 x 3.5 cm, bone metastasis of the thoracic and lumbar spine, MRI of spine did not show cord compression, MRI brain showed multiple bilateral metastasis. Bronchoscopy with biopsy was done on 08/09/18, path positive for non-small cell carcinoma, most consistent with moderately differentiated adenocarcinoma, biomarkers pending. She was started on palliative radiation to the T-spine, as well as the whole brain and right femoral head. She was due to complete XRT on 09/05/18. She was recently admitted with some nausea and vomiting, with the fairly rapid improvement with supportive treatment. During that admission, there was mild elevation of pancreatic enzymes noted, with imaging showing possible dilatation of the CBD and pancreatic duct. The patient's CA 199 was markedly elevated in the 20,000 range. He had an MRI that was negative, showing no obstruction or mass, with slightly increased diameter the pancreatic duct in the head region. She was therefore discharged to continue radiation. The patient states that around 6 AM this morning, she developed midabdominal pain, accompanied by nausea and then over to vomiting. She was unable to keep anything down, and therefore came to the ER. She missed her radiation today. In the ER she was noted to have some dehydration with UA being abnormal. Abdominal x-ray is a possibility of a small bowel ileus/obstruction. She had a CT of the abdomen and pelvis which did show a segment of the small bowel being taken to just above possible inflammation, with the addition of the segment of bowel proximal to it. Case was discussed with the ER physician, and it was decided to admit the patient further management Review of Systems Constitutional: Reports chronic pain, Reports poor appetite, Reports weakness Eyes: denies blurred vision, denies pain Ears: deny: decreased hearing, ear discharge, earache, tinnitus Ears, nose, mouth and throat: Denies headache, Denies sore throat Cardiovascular: Reports decreased exercise tolerance Respiratory: Denies cough Gastrointestinal: Reports abdominal pain, Reports nausea, Reports vomiting Genitourinary: Denies dysuria, Denies hematuria Menstruation: Reports postmenopausal Musculoskeletal: Reports low back pain, Reports muscle weakness Integumentary: Denies pruritus, Denies rash Neurological: Reports weakness, Denies numbness Psychiatric: Reports anxiety Endocrine: Reports fatigue, Denies weight change Hematologic/Lymphatic: Reports as per HPI Past Medical History Past Medical History: Cancer, Hyperlipidemia, Hypertension, Thyroid Disorder Additional Past Medical History / Comment(s): Back pain since May 2018. 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, rt hip )has had radiation tx.thyroid nodules History of Any Multi-Drug Resistant Organisms: None Reported Past Surgical History: Orthopedic Surgery, Tonsillectomy Additional Past Surgical History / Comment(s): colonoscopy, left hip replacement cataract , past rt breast cyst aspiration Past Anesthesia/Blood Transfusion Reactions: No Reported Reaction Smoking Status: Former smoker - Past Family History Father Family Medical History: Hyperlipidemia, Myocardial Infarction ([place]) Mother Additional Family Medical History / Comment(s): diabetes Medications and Allergies Home Medications Medication Instructions Recorded Confirmed Type Aspirin 81 mg PO HS 12/12/14 08/30/18 History Atenolol [Tenormin] 50 mg PO HS 12/12/14 08/30/18 History Calcium Carbonate/Vitamin D3 1 tab PO DAILY 12/12/14 08/30/18 History [Caltrate 600 Plus D3 Tablet] Multivitamin/Iron/Folic Acid 1 tab PO DAILY 12/12/14 08/30/18 History [Centrum Complete Multivit Tab] Acetaminophen Tab [Tylenol] 1,000 mg PO Q6HR PRN 08/07/18 08/30/18 History Flaxseed Oil 1,000 mg PO DAILY 08/07/18 08/30/18 History Pantoprazole [Protonix] 40 mg PO AC-BID #60 tablet. 08/10/18 08/30/18 Rx Dexamethasone [Decadron] 4 mg PO DAILY 08/23/18 08/30/18 History Docusate [Colace] 100 mg PO DAILY 08/23/18 08/30/18 History HYDROcodone/APAP 7.5-325MG [[place] 1 tab PO Q6HR PRN 08/23/18 08/30/18 History 7.5-325] Memantine [Namenda] 10 mg PO BID 08/23/18 08/30/18 History Allergies Allergy/AdvReac Type Severity Reaction Status Date / Time No Known Allergies Allergy Verified 08/30/18 11:32 Physical Exam Vitals: Vital Signs Temp Pulse Resp BP Pulse Ox 08/30/18 19:17 98.7 F 89 18 106/60 98 08/30/18 18:02 88 18 112/59 98 08/30/18 16:35 98.8 F 08/30/18 16:27 96 18 136/62 98 08/30/18 15:13 96 18 115/56 98 08/30/18 15:03 97 18 89/50 97 08/30/18 14:30 98 18 92/55 98 08/30/18 12:36 90 18 99/56 98 08/30/18 12:02 89 18 103/50 98 08/30/18 10:49 100.8 F H 98 18 86/56 Intake and Output 08/30/18 08/30/18 08/30/18 06:59 14:59 22:59 Other: Weight 86.183 kg - Constitutional General appearance: no acute distress - EENT Eyes: EOMI, PERRLA ENT: hearing grossly normal, normal oropharynx - Neck Neck: no lymphadenopathy Thyroid: bilateral: normal size - Respiratory Respiratory: bilateral: CTA - Cardiovascular Rhythm: regular Heart sounds: normal: S1, S2 - Gastrointestinal General gastrointestinal: distended (Mild), normal bowel sounds, tenderness ( Mild nonspecific mid abdomen) - Integumentary Integumentary: normal - Neurologic Neurologic: CNII-XII intact - Musculoskeletal Musculoskeletal: generalized weakness, strength equal bilaterally - Psychiatric Psychiatric: A&O x's 3, appropriate affect Results CBC & Chem 7: 08/30/18 11:28 08/30/18 11:28 Labs: Abnormal Lab Results - Last 24 Hours (Table) 08/30/18 08/30/18 08/30/18 Range/Units 11:28 11:28 11:28 WBC 3.7 L (3.8-10.6) k/uL RBC 3.68 L (3.80-5.40) m/uL Hct 33.2 L (34.0-46.0) % Lymphocytes # 0.3 L (1.0-4.8) k/uL APTT (22.0-30.0) sec Sodium 136 L (137-145) mmol/L BUN 28 H (7-17) mg/dL Glucose 106 H (74-99) mg/dL Plasma Lactic Acid Sumit 2.1 H* (0.7-2.0) mmol/L AST 56 H (14-36) U/L ALT 158 H (9-52) U/L Alkaline Phosphatase 145 H (38-126) U/L Total Protein 5.5 L (6.3-8.2) g/dL Albumin 3.0 L (3.5-5.0) g/dL Urine Appearance (Clear) Urine Protein (Negative) Ur Leukocyte Esterase (Negative) Urine WBC (0-5) /hpf Urine Mucus (None) /hpf 08/30/18 08/30/18 Range/Units 11:28 13:01 WBC (3.8-10.6) k/uL RBC (3.80-5.40) m/uL Hct (34.0-46.0) % Lymphocytes # (1.0-4.8) k/uL APTT 21.1 L (22.0-30.0) sec Sodium (137-145) mmol/L BUN (7-17) mg/dL Glucose (74-99) mg/dL Plasma Lactic Acid Sumit (0.7-2.0) mmol/L AST (14-36) U/L ALT (9-52) U/L Alkaline Phosphatase (38-126) U/L Total Protein (6.3-8.2) g/dL Albumin (3.5-5.0) g/dL Urine Appearance Cloudy H (Clear) Urine Protein 1+ H (Negative) Ur Leukocyte Esterase Moderate H (Negative) Urine WBC 29 H (0-5) /hpf Urine Mucus Many H (None) /hpf Abdominal x-ray: report reviewed CT scan - abdomen: report reviewed Assessment and Plan (1) Small bowel obstruction, partial Narrative/Plan: The patient is presenting with what appears to be a partial small bowel obstruction. She is still able to pass gas and loose bowel movements. CT scan shows segmental thickening of an area of small bowel with dilatation of the segment proximal to it. This could be inflammatory, ischemic, or potentially even due to tumor. According to my discussion with the ER physician, surgical consult was recommended. We will await their opinion. In the meantime patient will be treated conservatively. She was advised that need for surgery versus not would be determined by the surgeon. from the oncology standpoint it would be most optimal if the patient could be managed conservatively, since major surgical intervention is likely to delay systemic therapy Current Visit: Yes Status: Acute Code(s): K56.600 - PARTIAL INTESTINAL OBSTRUCTION, UNSPECIFIED TO CAUSE SNOMED Code(s): 040364670 (2) Metastatic lung cancer (metastasis from lung to other site) Narrative/Plan: The patient is currently undergoing radiation to the brain and spine. She missed her treatment today. Assuming that she will be able to resume next week , she will completed on 09/06/18. Biomarker testing is pending at this time, and positivity versus negativity will determine systemic therapy. The patient's CA 19-9 was markedly elevated. However MRI did not show any evidence of primary lesion in the pancreas Current Visit: No Status: Acute Priority: High Code(s): C34.90 - MALIGNANT NEOPLASM OF UNSP PART OF UNSP BRONCHUS OR LUNG SNOMED Code(s): 41341350 (3) Urinary tract infection Narrative/Plan: On antibiotic. Therefore to the admitting service for continued management Current Visit: Yes Status: Acute Code(s): N39.0 - URINARY TRACT INFECTION, SITE NOT SPECIFIED SNOMED Code(s): 28109760
[2018-08-31] MEDS: MORPHINE SULFATE 4 MG/ML SYRINGE IV PRN ×2 (03:53→08:00)
[2018-08-31] MEDS: PANTOPRAZOLE 40 MG/10 ML VIAL IV SCH (07:53)
[2018-08-31 10:34] LABS: Basophils % (A) 0 %; Eosinophils # (A) 0.1 k/uL (0-0.7); Eosinophils % (A) 5 %; Lymphocytes # (A) 0.2 k/uL (1.0-4.8); Lymphocytes % (A) 9 %; MCHC 32.4 g/dL (31.0-37.0); MCV 92.5 fL (80.0-100.0); Monocytes # (A) 0.1 k/uL (0-1.0); Monocytes % (A) 6 %; Neutrophils # (A) 1.8 k/uL (1.3-7.7); Neutrophils % (A) 77 %; Platelet Count 232 k/uL (150-450); RBC 3.35 m/uL (3.80-5.40); RDW 14.3 % (11.5-15.5); WBC 2.4 k/uL (3.8-10.6)
--- NOTE | 2018-08-31 10:34 | P.HPIM ---
History of Present Illness H&P Date: 08/31/18 Chief Complaint: Abdominal pain This is a 73-year-old female patient of Dr. Vides. Patient presents to the emergency room with complaints of nausea vomiting and diarrhea. Patient states she's had vomiting and diarrhea about 5 times at home with intermittent abdominal cramping. 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 Patient recently admitted for fever but symptoms had resolved and patient was discharged. During previous admission CA-19-9 was elevated and patient underwent MRI of the pancreas and abdomen. Chest x-ray completed showing no acute process seen. X-ray of abdomen completed showing underlying small bowel obstruction, correlate. Bone metastases disease. CT of abdomen completed showing new mid small bowel wall thickening involving the mid ileum likely related to inflammatory process. There is distended more proximal ileum that is suggestive some degree of mechanical obstruction. There is new minimal ascites fluid compared to last exam. Numerous osteolytic lesions consistent with metastases disease. Dilated gallbladder suggestive of cholecystitis. Dr. herrera of been consulted for surgical services. Dr. dee been consulted for oncology. Urine and blood cultures have been ordered. Patient started on Levaquin for IV antibiotics. UA showing moderate amount of leukocyte Estrace. Actiq acid also elevated at 2.1. Patient received 4 L of IV fluid repeat lactic acid 1.4. At this time patient is in bed. Patient denies chest pain or shortness of breath. States abdominal pain had subsided. She denies any urinary burning or frequency. Review of Systems Please refer to HPI otherwise unremarkable Past Medical History Past Medical History: Cancer, Hyperlipidemia, Hypertension, Thyroid Disorder Additional Past Medical History / Comment(s): Back pain since May 2018. 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, rt hip )has had radiation tx.thyroid nodules History of Any Multi-Drug Resistant Organisms: None Reported Past Surgical History: Orthopedic Surgery, Tonsillectomy Additional Past Surgical History / Comment(s): colonoscopy, left hip replacement cataract , past rt breast cyst aspiration Past Anesthesia/Blood Transfusion Reactions: No Reported Reaction Smoking Status: Former smoker - Past Family History Father Family Medical History: Hyperlipidemia, Myocardial Infarction ([place]) Mother Additional Family Medical History / Comment(s): diabetes Medications and Allergies Home Medications Medication Instructions Recorded Confirmed Type Aspirin 81 mg PO HS 12/12/14 08/30/18 History Atenolol [Tenormin] 50 mg PO HS 12/12/14 08/30/18 History Calcium Carbonate/Vitamin D3 1 tab PO DAILY 12/12/14 08/30/18 History [Caltrate 600 Plus D3 Tablet] Multivitamin/Iron/Folic Acid 1 tab PO DAILY 12/12/14 08/30/18 History [Centrum Complete Multivit Tab] Acetaminophen Tab [Tylenol] 1,000 mg PO Q6HR PRN 08/07/18 08/30/18 History Flaxseed Oil 1,000 mg PO DAILY 08/07/18 08/30/18 History Pantoprazole [Protonix] 40 mg PO AC-BID #60 tablet. 08/10/18 08/30/18 Rx Dexamethasone [Decadron] 4 mg PO DAILY 08/23/18 08/30/18 History Docusate [Colace] 100 mg PO DAILY 08/23/18 08/30/18 History HYDROcodone/APAP 7.5-325MG [[place] 1 tab PO Q6HR PRN 08/23/18 08/30/18 History 7.5-325] Memantine [Namenda] 10 mg PO BID 08/23/18 08/30/18 History Allergies Allergy/AdvReac Type Severity Reaction Status Date / Time No Known Allergies Allergy Verified 08/30/18 11:32 Physical Exam Vitals: Vital Signs Temp Pulse Pulse Resp BP BP Pulse Ox 08/31/18 07:34 98.1 F 95 16 124/75 98 08/30/18 23:00 98.5 F 98 20 106/60 95 08/30/18 20:18 20 08/30/18 20:00 97.7 F 95 20 118/57 98 08/30/18 19:17 98.7 F 89 18 106/60 98 08/30/18 18:02 88 18 112/59 98 08/30/18 16:35 98.8 F 08/30/18 16:27 96 18 136/62 98 08/30/18 15:13 96 18 115/56 98 08/30/18 15:03 97 18 89/50 97 08/30/18 14:30 98 18 92/55 98 08/30/18 12:36 90 18 99/56 98 08/30/18 12:02 89 18 103/50 98 08/30/18 10:49 100.8 F H 98 18 86/56 Intake and Output 08/30/18 08/31/18 08/31/18 22:59 06:59 14:59 Intake Total 0 100 Balance 0 100 Intake: Oral 0 100 Other: # Voids 1 2 Weight 91.172 kg Head normocephalic Neck supple Lungs clear to auscultation bilaterally no wheezing or crackles Heart regular rate and rhythm S1-S2, no rub or gallop Abdomen is soft nontender nondistended positive bowel sounds no hepatosplenomegaly Extremities no edema Neuro alert and orientated to 3 Results CBC & Chem 7: 08/30/18 11:28 08/30/18 11:28 Labs: Abnormal Lab Results - Last 24 Hours (Table) 08/30/18 08/30/18 08/30/18 Range/Units 11: 11: 11:28 WBC 3.7 L (3.8-10.6) k/uL RBC 3.68 L (3.80-5.40) m/uL Hct 33.2 L (34.0-46.0) % Lymphocytes # 0.3 L (1.0-4.8) k/uL APTT (22.0-30.0) sec Sodium 136 L (137-145) mmol/L BUN 28 H (7-17) mg/dL Glucose 106 H (74-99) mg/dL Plasma Lactic Acid Sumit 2.1 H* (0.7-2.0) mmol/L AST 56 H (14-36) U/L ALT 158 H (9-52) U/L Alkaline Phosphatase 145 H (38-126) U/L Total Protein 5.5 L (6.3-8.2) g/dL Albumin 3.0 L (3.5-5.0) g/dL Urine Appearance (Clear) Urine Protein (Negative) Ur Leukocyte Esterase (Negative) Urine WBC (0-5) /hpf Urine Mucus (None) /hpf 08/30/18 08/30/18 Range/Units 11: 13:01 WBC (3.8-10.6) k/uL RBC (3.80-5.40) m/uL Hct (34.0-46.0) % Lymphocytes # (1.0-4.8) k/uL APTT 21.1 L (22.0-30.0) sec Sodium (137-145) mmol/L BUN (7-17) mg/dL Glucose (74-99) mg/dL Plasma Lactic Acid Sumit (0.7-2.0) mmol/L AST (14-36) U/L ALT (9-52) U/L Alkaline Phosphatase (38-126) U/L Total Protein (6.3-8.2) g/dL Albumin (3.5-5.0) g/dL Urine Appearance Cloudy H (Clear) Urine Protein 1+ H (Negative) Ur Leukocyte Esterase Moderate H (Negative) Urine WBC 29 H (0-5) /hpf Urine Mucus Many H (None) /hpf Microbiology - Last 24 Hours (Table) 08/30/18 13:01 Urine Culture - Preliminary Urine,Clean Catch Assessment and Plan Assessment: 1. Abdominal pain with nausea and vomiting. Abdomen and pelvis CT completed showing new mid small bowel wall thickening involving the mid ileum likely related to inflammatory process. There is distended more proximal ileum that is suggestive some degree of mechanical obstruction. There is new minimal ascites fluid compared to last exam. Numerous osteolytic lesions consistent with metastases disease. Dilatated gallbladder suggestive cholecystitis. Dr. herrera has been consulted 2. Urinary tract infection. Urine and blood Culture has been ordered. Patient currently maintained on Levaquin 3. Recent diagnosis of lung cancer with metastasis disease to spine and brain. Mild the pancreas completed showing mild enlargement distal pancreatic duct. No obstructing lesion seen. Clinical significance is not clear. No evidence of pancreatic mass. Bile ducts appear normal. Dr. magana has been consulted from oncology services. Patient has been undergoing radiation therapy to spine femur and brain 4. Hyperlipidemia 5. History of essential hypertension. Atenolol resumed 6. Hyperthyroidism. Continue Synthroid DVT prophylaxis SCDs. GI prophylaxis Protonix. Time with Patient: Greater than 30 (Greater than 60% of the total time spent in counseling and coordination of care. I performed an examination of the patient and discussed their management with the Nurse Practitioner. I have reviewed the Nurse Practitioner's notes and agree with the documented findings and plan of care)
--- NOTE | 2018-08-31 10:37 | P.GSCN ---
History of Present Illness Consult date: 08/31/18 Reason for Consult: Abdominal pain, nausea History of present illness: This a 73-year-old female who has a history of metastatic lung cancer with brain and bone involvement. Patient developed abdominal pain and nausea. She was admitted through the emergency room. Her CAT scan shows a long segment of ileum with thickening causing a partial obstruction as well as possible mild cholecystitis. The patient states she feels better today. She denies a significant abdominal pain. She has no nausea. Past Medical History Past Medical History: Cancer, Hyperlipidemia, Hypertension, Thyroid Disorder Additional Past Medical History / Comment(s): Back pain since May 2018. 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, rt hip )has had radiation tx.thyroid nodules History of Any Multi-Drug Resistant Organisms: None Reported Past Surgical History: Orthopedic Surgery, Tonsillectomy Additional Past Surgical History / Comment(s): colonoscopy, left hip replacement cataract , past rt breast cyst aspiration Past Anesthesia/Blood Transfusion Reactions: No Reported Reaction Smoking Status: Former smoker - Past Family History Father Family Medical History: Hyperlipidemia, Myocardial Infarction ([place]) Mother Additional Family Medical History / Comment(s): diabetes Medications and Allergies Home Medications Medication Instructions Recorded Confirmed Type Aspirin 81 mg PO HS 12/12/14 08/30/18 History Atenolol [Tenormin] 50 mg PO HS 12/12/14 08/30/18 History Calcium Carbonate/Vitamin D3 1 tab PO DAILY 12/12/14 08/30/18 History [Caltrate 600 Plus D3 Tablet] Multivitamin/Iron/Folic Acid 1 tab PO DAILY 12/12/14 08/30/18 History [Centrum Complete Multivit Tab] Acetaminophen Tab [Tylenol] 1,000 mg PO Q6HR PRN 08/07/18 08/30/18 History Flaxseed Oil 1,000 mg PO DAILY 08/07/18 08/30/18 History Pantoprazole [Protonix] 40 mg PO AC-BID #60 tablet. 08/10/18 08/30/18 Rx Dexamethasone [Decadron] 4 mg PO DAILY 08/23/18 08/30/18 History Docusate [Colace] 100 mg PO DAILY 08/23/18 08/30/18 History HYDROcodone/APAP 7.5-325MG [[place] 1 tab PO Q6HR PRN 08/23/18 08/30/18 History 7.5-325] Memantine [Namenda] 10 mg PO BID 08/23/18 08/30/18 History Allergies Allergy/AdvReac Type Severity Reaction Status Date / Time No Known Allergies Allergy Verified 08/30/18 11:32 Surgical - Exam Vital Signs Temp Pulse Resp BP 100.8 F H 98 18 86/56 08/30/18 10:49 08/30/18 10:49 08/30/18 10:49 08/30/18 10:49 - General well developed, no distress - Eyes PERRL - ENT normal pinna - Neck no masses - Respiratory normal expansion - Cardiovascular Rhythm: regular - Abdomen Distention Abdomen: soft Results - Labs 08/30/18 11:28 08/30/18 11:28 Abnormal Lab Results - Last 24 Hours (Table) 08/30/18 08/30/18 08/30/18 Range/Units 11:28 11:28 11:28 WBC 3.7 L (3.8-10.6) k/uL RBC 3.68 L (3.80-5.40) m/uL Hct 33.2 L (34.0-46.0) % Lymphocytes # 0.3 L (1.0-4.8) k/uL APTT (22.0-30.0) sec Sodium 136 L (137-145) mmol/L BUN 28 H (7-17) mg/dL Glucose 106 H (74-99) mg/dL Plasma Lactic Acid Sumit 2.1 H* (0.7-2.0) mmol/L AST 56 H (14-36) U/L ALT 158 H (9-52) U/L Alkaline Phosphatase 145 H (38-126) U/L Total Protein 5.5 L (6.3-8.2) g/dL Albumin 3.0 L (3.5-5.0) g/dL Urine Appearance (Clear) Urine Protein (Negative) Ur Leukocyte Esterase (Negative) Urine WBC (0-5) /hpf Urine Mucus (None) /hpf 08/30/18 08/30/18 Range/Units 11:28 13:01 WBC (3.8-10.6) k/uL RBC (3.80-5.40) m/uL Hct (34.0-46.0) % Lymphocytes # (1.0-4.8) k/uL APTT 21.1 L (22.0-30.0) sec Sodium (137-145) mmol/L BUN (7-17) mg/dL Glucose (74-99) mg/dL Plasma Lactic Acid Sumit (0.7-2.0) mmol/L AST (14-36) U/L ALT (9-52) U/L Alkaline Phosphatase (38-126) U/L Total Protein (6.3-8.2) g/dL Albumin (3.5-5.0) g/dL Urine Appearance Cloudy H (Clear) Urine Protein 1+ H (Negative) Ur Leukocyte Esterase Moderate H (Negative) Urine WBC 29 H (0-5) /hpf Urine Mucus Many H (None) /hpf Microbiology - Last 24 Hours (Table) 08/30/18 13:01 Urine Culture - Preliminary Urine,Clean Catch Diabetes panel 08/30/18 Range/Units 11:28 Sodium 136 L (137-145) mmol/L Potassium 4.2 (3.5-5.1) mmol/L Chloride 103 (98-107) mmol/L Carbon Dioxide 25 (22-30) mmol/L BUN 28 H (7-17) mg/dL Creatinine 0.95 (0.52-1.04) mg/dL Glucose 106 H (74-99) mg/dL Calcium 8.6 (8.4-10.2) mg/dL AST 56 H (14-36) U/L ALT 158 H (9-52) U/L Alkaline Phosphatase 145 H (38-126) U/L Total Protein 5.5 L (6.3-8.2) g/dL Albumin 3.0 L (3.5-5.0) g/dL Calcium panel 08/30/18 Range/Units 11:28 Calcium 8.6 (8.4-10.2) mg/dL Albumin 3.0 L (3.5-5.0) g/dL Pituitary panel 08/30/18 Range/Units 11:28 Sodium 136 L (137-145) mmol/L Potassium 4.2 (3.5-5.1) mmol/L Chloride 103 (98-107) mmol/L Carbon Dioxide 25 (22-30) mmol/L BUN 28 H (7-17) mg/dL Creatinine 0.95 (0.52-1.04) mg/dL Glucose 106 H (74-99) mg/dL Calcium 8.6 (8.4-10.2) mg/dL Adrenal panel 08/30/18 Range/Units 11:28 Sodium 136 L (137-145) mmol/L Potassium 4.2 (3.5-5.1) mmol/L Chloride 103 (98-107) mmol/L Carbon Dioxide 25 (22-30) mmol/L BUN 28 H (7-17) mg/dL Creatinine 0.95 (0.52-1.04) mg/dL Glucose 106 H (74-99) mg/dL Calcium 8.6 (8.4-10.2) mg/dL Total Bilirubin 0.8 (0.2-1.3) mg/dL AST 56 H (14-36) U/L ALT 158 H (9-52) U/L Alkaline Phosphatase 145 H (38-126) U/L Total Protein 5.5 L (6.3-8.2) g/dL Albumin 3.0 L (3.5-5.0) g/dL - Imaging CT scan - abdomen: report reviewed (Thickening of the terminal ileum. Gallbladder is distended measuring 5 cm diameter.) Assessment and Plan Assessment: Metastatic lung cancer with bone and brain involvement. Unsure of the etiology of her enteritis. Patient feels better clinically. We will place her on a diet and observe her. No surgical intervention is planned at this point.
[2018-08-31 10:54] LABS: Albumin 2.6 g/dL (3.5-5.0); Calcium 7.2 mg/dL (8.4-10.2); Potassium 3.9 mmol/L (3.5-5.1); Total Bilirubin 0.5 mg/dL (0.2-1.3)
[2018-08-31 11:28] LABS: Creatine Kinase <20 U/L (30-135)
[2018-08-31 11:38] LABS: Creatine Kinase MB 1.1 ng/mL (0.0-2.4)
[2018-08-31] MEDS: DILTIAZEM 50 MG in SODIUM CHLORIDE 0.9% 40 ML IV SCH (13:31)
[2018-08-31] MEDS ORDERED: HEPARIN SODIUM,PORCINE 5,000 UNIT/ML 1 ML VIAL IV PRN (13:37)
[2018-08-31] MEDS ORDERED: HEPARIN SODIUM,PORCINE 5,000 UNIT/ML 1 ML VIAL IV ONE (13:37)
--- NOTE | 2018-08-31 14:03 | CONS ---
CONSULTATION ATTENDING: Dr. Vides. HISTORY: Ms. Perry is a 73-year-old female with history of lung CA with bone metastasis, who has been receiving radiation therapy and presented to the emergency room yesterday with abdominal discomfort. Cardiology consultation was requested today because she is in atrial fibrillation which is new to her. When she came in yesterday, she was in sinus mechanism. She feels jittery, anxious, and somewhat dizzy. She has no chest discomfort and no change in her breathing. She had nausea and vomiting that improved. She has no history of PND or orthopnea. No history of syncope. No history of arrhythmia or prior cardiac workup nor cardiac disease. Her coronary risk factors are remarkable for history of hypertension and hyperlipidemia. She is a nondiabetic. MEDICATIONS: 1. Protonix. 2. Namenda. 3. Hydrocodone. 4. Colace. 5. Decadron. 6. Tenormin 50 mg daily. 7. Aspirin 81 mg a day. REVIEW OF SYSTEMS: RESPIRATORY SYSTEM: She has a history of lung carcinoma. No recent wheezing. GI SYSTEM: She had nausea and vomiting. Feeling better today. SYSTEM: No dysuria or hematuria. NERVOUS SYSTEM: No history of stroke or seizure. PHYSICAL EXAMINATION: She is a 73-year-old female, alert, oriented, in no apparent distress. Blood pressure 110/50 with a heart rate in the 120s. HEAD: Normocephalic. Eyes sclerae anicteric. NECK: Good upstroke. No bruit. No jugular venous distention. LUNGS: Clear to auscultation. HEART: Irregular irregular. S1, S2. No S3 with systolic murmur no diastolic murmur. No rub. ABDOMEN: Soft, nontender. Positive bowel sounds. No organomegaly. EXTREMITIES: Trace to 1+ edema, more on the right side. LAB DATA: Lab data revealed a hemoglobin of 10, white blood cell of 2.4, BUN and creatinine 17 and 0.84, platelet count 232,000. AST of 30, ALT of 98. On presentation, her EKG revealed sinus mechanism, normal axis, with nonspecific ST-T wave changes. Subsequent EKG shows atrial fibrillation with rapid ventricular response and nonspecific ST-T wave changes. Chest x-ray shows no acute infiltrate. Her abdominal CT scan shows a distended bowel with some mechanical obstruction and osteolytic lesions consistent with metastatic disease. IMPRESSION: 1. Paroxysmal atrial fibrillation with rapid ventricular response. 2. Lung carcinoma with bone metastases. 3. Abdominal discomfort, improving. 4. History of hypertension. 5. Hyperlipidemia. RECOMMENDATIONS: From the cardiac standpoint I will anticoagulate the patient. I will obtain echocardiogram with Doppler. I will check her thyroid function test. We will continue on the beta yanira. Depending on her progress, further recommendation will be made. Thank you for this consult. We will follow with you. MMODL / IJN: [id number] /
[2018-08-31 14:08] LABS: Basophils % (A) 0 %; Eosinophils # (A) 0.1 k/uL (0-0.7); Eosinophils % (A) 4 %; HCT 28.8 % (34.0-46.0); HGB 9.6 gm/dL (11.4-16.0); Lymphocytes # (A) 0.2 k/uL (1.0-4.8); Lymphocytes % (A) 10 %; MCH 30.7 pg (25.0-35.0); MCHC 33.4 g/dL (31.0-37.0); MCV 91.9 fL (80.0-100.0); Mean Platelet Volume 8.4; Monocytes # (A) 0.2 k/uL (0-1.0); Monocytes % (A) 7 %; Neutrophils # (A) 1.9 k/uL (1.3-7.7); Neutrophils % (A) 78 %; Platelet Count 199 k/uL (150-450); RBC 3.13 m/uL (3.80-5.40); RDW 14.4 % (11.5-15.5); WBC 2.5 k/uL (3.8-10.6)
[2018-08-31] MEDS: HEPARIN SOD,PORK IN 0.45% NACL 25,000 UNIT in 0.45% NACL 1 500ML.BAG IV SCH (14:09)
[2018-08-31 14:16] LABS: INR 1.1 (<1.2); Partial Thromboplastin Time 25.8 sec (22.0-30.0); Prothrombin Time 10.5 sec (9.0-12.0)
[2018-08-31 15:26] LABS: T4, Free (Free Thyroxine) 0.99 ng/dL (0.78-2.19)
[2018-08-31] MEDS: LEVOFLOXACIN 750MG-D5W PMX 750 MG in DEXTROSE/WATER 1 150ML.BAG IVPB SCH (15:33)
[2018-08-31] MEDS: HYDROcodone/APAP 7.5-325MG 1 EACH TAB PO PRN ×2 (15:42→22:18)
[2018-08-31 16:44] LABS: Creatine Kinase MB 2.2 ng/mL (0.0-2.4)
[2018-08-31] MEDS ORDERED: PANTOPRAZOLE 40 MG TABLET PO SCH (17:30)
[2018-08-31] MEDS ORDERED: ATENOLOL 50 MG TAB PO SCH (21:00)
[2018-08-31] MEDS: ATENOLOL 50 MG TAB PO SCH (22:19)
[2018-08-31] MEDS: ASPIRIN 81 MG PO SCH (22:20)
[2018-08-31] MEDS: MEMANTINE 10 MG TAB PO SCH (22:20)
[2018-09-01 04:15] LABS: Basophils % (A) 0 %; Eosinophils # (A) 0.1 k/uL (0-0.7); Eosinophils % (A) 6 %; HGB 8.6 gm/dL (11.4-16.0); Lymphocytes # (A) 0.2 k/uL (1.0-4.8); Lymphocytes % (A) 9 %; MCH 30.3 pg (25.0-35.0); MCHC 33.2 g/dL (31.0-37.0); MCV 91.3 fL (80.0-100.0); Mean Platelet Volume 7.2; Monocytes # (A) 0.1 k/uL (0-1.0); Monocytes % (A) 5 %; Neutrophils # (A) 1.7 k/uL (1.3-7.7); Neutrophils % (A) 78 %; Platelet Count 200 k/uL (150-450); RBC 2.85 m/uL (3.80-5.40); RDW 14.4 % (11.5-15.5); WBC 2.1 k/uL (3.8-10.6)
[2018-09-01 04:36] LABS: Albumin 2.2 g/dL (3.5-5.0); Total Bilirubin 0.4 mg/dL (0.2-1.3); Total Protein 4.4 g/dL (6.3-8.2)
[2018-09-01 04:37] LABS: Creatine Kinase <20 U/L (30-135)
[2018-09-01 04:51] LABS: Creatine Kinase MB 1.6 ng/mL (0.0-2.4)
[2018-09-01 05:08] LABS: Troponin I 0.151 ng/mL (0.000-0.034)
[2018-09-01] MEDS: ATENOLOL 50 MG TAB PO SCH ×2 (08:11→20:28)
[2018-09-01] MEDS: DOCUSATE 100 MG CAP PO SCH (08:11)
[2018-09-01] MEDS: CALCIUM CARB-VIT D 500MG-200UN 1 EACH TAB PO SCH (08:11)
[2018-09-01] MEDS: HYDROcodone/APAP 7.5-325MG 1 EACH TAB PO PRN ×3 (08:12→20:29)
[2018-09-01] MEDS: MEMANTINE 10 MG TAB PO SCH ×2 (08:12→20:29)
[2018-09-01] MEDS: MULTIVITAMINS, THERA 1 EACH TAB PO SCH (08:12)
[2018-09-01] MEDS: PANTOPRAZOLE 40 MG/10 ML VIAL IV SCH (08:13)
[2018-09-01] MEDS: DEXAMETHASONE 4 MG TAB PO SCH (08:16)
--- NOTE | 2018-09-01 09:25 | P.PN ---
Progress Note - Text Progress Note Date: 09/01/18 The patient's resting comfortably in bed. She is currently undergoing an echo for atrial for ablation. The patient denies any significant abdominal pain. She is tolerating her diet yesterday. On exam her vital signs are stable. Her abdomen soft. History of metastatic lung cancer. Patient is clinically stable and observed. There is no surgical intervention planned at this time.
--- NOTE | 2018-09-01 10:00 | P.PN ---
Subjective Progress Note Date: 09/01/18 This is a 73-year-old female patient of Dr. Vides. Patient presents to the emergency room with complaints of nausea vomiting and diarrhea. Patient states she's had vomiting and diarrhea about 5 times at home with intermittent abdominal cramping. 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 Patient recently admitted for fever but symptoms had resolved and patient was discharged. During previous admission CA-19-9 was elevated and patient underwent MRI of the pancreas and abdomen. Chest x-ray completed showing no acute process seen. X-ray of abdomen completed showing underlying small bowel obstruction, correlate. Bone metastases disease. CT of abdomen completed showing new mid small bowel wall thickening involving the mid ileum likely related to inflammatory process. There is distended more proximal ileum that is suggestive some degree of mechanical obstruction. There is new minimal ascites fluid compared to last exam. Numerous osteolytic lesions consistent with metastases disease. Dilated gallbladder suggestive of cholecystitis. Dr. herrera of been consulted for surgical services. Dr. dee been consulted for oncology. Urine and blood cultures have been ordered. Patient started on Levaquin for IV antibiotics. UA showing moderate amount of leukocyte Estrace. Actiq acid also elevated at 2.1. Patient received 4 L of IV fluid repeat lactic acid 1.4. At this time patient is in bed. Patient denies chest pain or shortness of breath. States abdominal pain had subsided. She denies any urinary burning or frequency. On 09/01/2018 patient is currently resting comfortably in bed. Patient went into A. fib with RVR yesterday it was transferred to cardiac stepdown care unit. Patient currently on heparin drip and cardiology services have been consulted. At this time patient denies chest pain or shortness of breath. Patient denies nausea vomiting or diarrhea. Patient states abdominal pain has improved. Patient is still having loose stools. Objective - Vital Signs Vital signs: Vital Signs Temp 98.2 F 09/01/18 04:00 Pulse 84 09/01/18 04:00 Resp 18 09/01/18 04:00 BP 109/60 09/01/18 04:00 Pulse Ox 98 09/01/18 04:00 Intake & Output 08/31/18 09/01/18 09/01/18 18:59 06:59 18:59 Intake Total 480 240 Balance 480 240 Weight 91.172 kg Intake: Oral 480 240 Other: # Voids 1 1 - Exam Head normocephalic Neck supple Lungs clear to auscultation bilaterally no wheezing or crackles Heart regular rate and rhythm S1-S2, no rub or gallop Abdomen is soft nontender nondistended positive bowel sounds no hepatosplenomegaly Extremities no edema Neuro alert and orientated to 3 - Labs CBC & Chem 7: 09/01/18 03:59 09/01/18 03:59 Labs: Abnormal Lab Results - Last 24 Hours (Table) 08/31/18 08/31/18 08/31/18 Range/Units 09:45 09:45 09:45 WBC 2.4 L (3.8-10.6) k/uL RBC 3.35 L (3.80-5.40) m/uL Hgb 10.0 L (11.4-16.0) gm/dL Hct 31.0 L (34.0-46.0) % Lymphocytes # 0.2 L (1.0-4.8) k/uL APTT (22.0-30.0) sec Sodium (137-145) mmol/L Chloride (98-107) mmol/L Glucose (74-99) mg/dL Calcium 7.2 L (8.4-10.2) mg/dL ALT 98 H (9-52) U/L Alkaline Phosphatase 127 H (38-126) U/L Total Creatine Kinase <20 L (30-135) U/L Troponin I (0.000-0.034) ng/mL Total Protein 5.0 L (6.3-8.2) g/dL Albumin 2.6 L (3.5-5.0) g/dL TSH (0.465-4.680) mIU/L 08/31/18 08/31/18 08/31/18 Range/Units 13:50 13:50 16:03 WBC 2.5 L (3.8-10.6) k/uL RBC 3.13 L (3.80-5.40) m/uL Hgb 9.6 L (11.4-16.0) gm/dL Hct 28.8 L (34.0-46.0) % Lymphocytes # 0.2 L (1.0-4.8) k/uL APTT (22.0-30.0) sec Sodium (137-145) mmol/L Chloride (98-107) mmol/L Glucose (74-99) mg/dL Calcium (8.4-10.2) mg/dL ALT (9-52) U/L Alkaline Phosphatase (38-126) U/L Total Creatine Kinase 21 L (30-135) U/L Troponin I (0.000-0.034) ng/mL Total Protein (6.3-8.2) g/dL Albumin (3.5-5.0) g/dL TSH 0.387 L (0.465-4.680) mIU/L 08/31/18 09/01/18 09/01/18 Range/Units 19:00 03:59 03:59 WBC 2.1 L (3.8-10.6) k/uL RBC 2.85 L (3.80-5.40) m/uL Hgb 8.6 L (11.4-16.0) gm/dL Hct 26.0 L (34.0-46.0) % Lymphocytes # 0.2 L (1.0-4.8) k/uL APTT 59.6 H (22.0-30.0) sec Sodium (137-145) mmol/L Chloride (98-107) mmol/L Glucose (74-99) mg/dL Calcium (8.4-10.2) mg/dL ALT (9-52) U/L Alkaline Phosphatase (38-126) U/L Total Creatine Kinase <20 L (30-135) U/L Troponin I 0.151 H* (0.000-0.034) ng/mL Total Protein (6.3-8.2) g/dL Albumin (3.5-5.0) g/dL TSH (0.465-4.680) mIU/L 09/01/18 09/01/18 Range/Units 03:59 05:00 WBC (3.8-10.6) k/uL RBC (3.80-5.40) m/uL Hgb (11.4-16.0) gm/dL Hct (34.0-46.0) % Lymphocytes # (1.0-4.8) k/uL APTT 52.2 H (22.0-30.0) sec Sodium 136 L (137-145) mmol/L Chloride 109 H (98-107) mmol/L Glucose 101 H (74-99) mg/dL Calcium 7.0 L (8.4-10.2) mg/dL ALT 69 H (9-52) U/L Alkaline Phosphatase (38-126) U/L Total Creatine Kinase (30-135) U/L Troponin I (0.000-0.034) ng/mL Total Protein 4.4 L (6.3-8.2) g/dL Albumin 2.2 L (3.5-5.0) g/dL TSH (0.465-4.680) mIU/L Microbiology - Last 24 Hours (Table) 08/30/18 13:01 Urine Culture - Final Urine,Clean Catch 08/30/18 11:28 Blood Culture - Preliminary Blood No Growth after 24 hours Assessment and Plan Assessment: 1. Abdominal pain with nausea and vomiting. Abdomen and pelvis CT completed showing new mid small bowel wall thickening involving the mid ileum likely related to inflammatory process. There is distended more proximal ileum that is suggestive some degree of mechanical obstruction. There is new minimal ascites fluid compared to last exam. Numerous osteolytic lesions consistent with metastases disease. Dilatated gallbladder suggestive cholecystitis. Per surgical services no surgical intervention planned at this time. Patient tolerating diet 2. Urinary tract infection. Urine and blood Culture has been ordered. Patient currently maintained on Levaquin. Dr. Dinh has been consulted for infectious disease 3. Recent diagnosis of lung cancer with metastasis disease to spine and brain. Mild the pancreas completed showing mild enlargement distal pancreatic duct. No obstructing lesion seen. Clinical significance is not clear. No evidence of pancreatic mass. Bile ducts appear normal. Dr. magana has been consulted from oncology services. Patient has been undergoing radiation therapy to spine femur and brain 4. Hyperlipidemia 5. History of essential hypertension. Atenolol resumed 6. Hyperthyroidism. Continue Synthroid. TSH level ordered 7. Atrial fibrillation with rapid ventricular response. Patient transferred to cardiac stepdown unit. Patient started on heparin drip and cardiology services have been consulted. She currently on Cardizem drip. TSH level has been ordered. Per cardiology services continue anticoagulation with heparin. 2 -D echo has been ordered. Continue beta yanira DVT prophylaxis heparin drip. GI prophylaxis Protonix. I performed an examination of the patient and discussed their management with the Nurse Practitioner. I have reviewed the Nurse Practitioner's notes and agree with the documented findings and plan of care
--- NOTE | 2018-09-01 10:57 | P.PN ---
Subjective Progress Note Date: 09/01/18 Subsequently 3-year-old female with history of lung CA with metastasis who has been receiving radiation therapy. Presented to the emergency department with abdominal discomfort. Cardiology was subsequently counseled due to new onset atrial fibrillation, paroxysmal. She was initiated on Cardizem drip and his sense converted back to sinus rhythm. She is currently on atenolol 50 mg by mouth twice a day. Cardizem drip has been discontinued. She does have a history of hypertension hyperlipidemia. No history of atrial fibrillation or cardiac disease. She does have nausea and vomiting which has improved. She did complain of palpitations that this is subsequently resolved with resolution of atrial fibrillation. She remains on heparin drip. Surgery has seen the patient and no plans for surgical intervention at this time. Objective - Vital Signs Vital signs: Vital Signs Temp 98.2 F 09/01/18 04:00 Pulse 84 09/01/18 04:00 Resp 18 09/01/18 04:00 BP 109/60 09/01/18 04:00 Pulse Ox 98 09/01/18 04:00 Intake & Output 08/31/18 09/01/18 09/01/18 18:59 06:59 18:59 Intake Total 480 240 Balance 480 240 Weight 91.172 kg Intake: Oral 480 240 Other: # Voids 1 1 - Exam PHYSICAL EXAMINATION: HEENT: Head is atraumatic, normocephalic. Pupils equal, round. Neck is supple. There is no elevated jugular venous pressure. HEART EXAMINATION: Heart sounds regular, S1 and S2 normal. No murmur or gallop heard. CHEST EXAMINATION: Lungs are clear to auscultation and precussion. No chest wall tenderness is noted on palpation or with deep breathing. ABDOMEN: Soft, nontender. Bowel sounds are heard. No organomegaly noted. EXTREMITIES: 2+ peripheral pulses with evidence of trace to 1+ peripheral edema and no calf tenderness noted. NEUROLOGIC patient is awake, alert and oriented x3. . - Labs CBC & Chem 7: 09/01/18 03:59 09/01/18 03:59 Labs: Abnormal Lab Results - Last 24 Hours (Table) 08/31/18 08/31/18 08/31/18 Range/Units 09:45 09:45 13:50 WBC (3.8-10.6) k/uL RBC (3.80-5.40) m/uL Hgb (11.4-16.0) gm/dL Hct (34.0-46.0) % Lymphocytes # (1.0-4.8) k/uL APTT (22.0-30.0) sec Sodium (137-145) mmol/L Chloride (98-107) mmol/L Glucose (74-99) mg/dL Calcium 7.2 L (8.4-10.2) mg/dL ALT 98 H (9-52) U/L Alkaline Phosphatase 127 H (38-126) U/L Total Creatine Kinase <20 L (30-135) U/L Troponin I (0.000-0.034) ng/mL Total Protein 5.0 L (6.3-8.2) g/dL Albumin 2.6 L (3.5-5.0) g/dL TSH 0.387 L (0.465-4.680) mIU/L 08/31/18 08/31/18 08/31/18 Range/Units 13:50 16:03 19:00 WBC 2.5 L (3.8-10.6) k/uL RBC 3.13 L (3.80-5.40) m/uL Hgb 9.6 L (11.4-16.0) gm/dL Hct 28.8 L (34.0-46.0) % Lymphocytes # 0.2 L (1.0-4.8) k/uL APTT 59.6 H (22.0-30.0) sec Sodium (137-145) mmol/L Chloride (98-107) mmol/L Glucose (74-99) mg/dL Calcium (8.4-10.2) mg/dL ALT (9-52) U/L Alkaline Phosphatase (38-126) U/L Total Creatine Kinase 21 L (30-135) U/L Troponin I (0.000-0.034) ng/mL Total Protein (6.3-8.2) g/dL Albumin (3.5-5.0) g/dL TSH (0.465-4.680) mIU/L 09/01/18 09/01/18 09/01/18 Range/Units 03:59 03:59 03:59 WBC 2.1 L (3.8-10.6) k/uL RBC 2.85 L (3.80-5.40) m/uL Hgb 8.6 L (11.4-16.0) gm/dL Hct 26.0 L (34.0-46.0) % Lymphocytes # 0.2 L (1.0-4.8) k/uL APTT (22.0-30.0) sec Sodium 136 L (137-145) mmol/L Chloride 109 H (98-107) mmol/L Glucose 101 H (74-99) mg/dL Calcium 7.0 L (8.4-10.2) mg/dL ALT 69 H (9-52) U/L Alkaline Phosphatase (38-126) U/L Total Creatine Kinase <20 L (30-135) U/L Troponin I 0.151 H* (0.000-0.034) ng/mL Total Protein 4.4 L (6.3-8.2) g/dL Albumin 2.2 L (3.5-5.0) g/dL TSH (0.465-4.680) mIU/L 09/01/18 Range/Units 05:00 WBC (3.8-10.6) k/uL RBC (3.80-5.40) m/uL Hgb (11.4-16.0) gm/dL Hct (34.0-46.0) % Lymphocytes # (1.0-4.8) k/uL APTT 52.2 H (22.0-30.0) sec Sodium (137-145) mmol/L Chloride (98-107) mmol/L Glucose (74-99) mg/dL Calcium (8.4-10.2) mg/dL ALT (9-52) U/L Alkaline Phosphatase (38-126) U/L Total Creatine Kinase (30-135) U/L Troponin I (0.000-0.034) ng/mL Total Protein (6.3-8.2) g/dL Albumin (3.5-5.0) g/dL TSH (0.465-4.680) mIU/L Microbiology - Last 24 Hours (Table) 08/30/18 13:01 Urine Culture - Final Urine,Clean Catch 08/30/18 11:28 Blood Culture - Preliminary Blood No Growth after 24 hours Assessment and Plan Assessment: #1 paroxysmal atrial fibrillation with rapid ventricular response, currently maintaining sinus rhythm #2 lung cancer with bone metastasis #3 abdominal discomfort, improving #4 hypertension #5 hyperlipidemia Plan: From cardiology's perspective, we will check coverage for oral anticoagulation. Continue current beta yanira. Will review 2-D echo with Doppler. Further recommendations will be made depending on patient's progress. METER ENGINEER note has been reviewed, I agree with a documented findings and plan of care. Patient was seen and examined.
--- NOTE | 2018-09-01 15:23 | CT ---
EXAMINATION TYPE: CT angio chest DATE OF EXAM: 09/01/2018 COMPARISON: 08/07/2018 HISTORY: Pulmonary embolus, a fib, lung ca. CT DLP: 267.6 mGycm. Automated Exposure Control for Dose Reduction was Utilized. CONTRAST: CTA scan of the thorax is performed with IV Contrast, patient injected with 100 mL of Isovue 370, pul monary embolism protocol. MIP Images are created on CT scanner and reviewed. FINDINGS: LUNGS: The primary lung carcinoma is described below measuring 3.7 x 2.3 x 3.4 cm, similar in appeara nce to the prior exam. Additional 4 mm subpleural pulmonary nodule seen on series 406 image 73. There are small bilateral pleural effusions with associated bibasilar atelectasis. No additional pulmonary masses are seen. MEDIASTINUM: There is satisfactory enhancement of the pulmonary artery and its branches, there is no CT evidence for pulmonary embolism. However there is narrowing and near complete occlusion of the pu lmonary arteries to the anterior segments of the left upper lobe secondary to encasement and circumfe rential narrowing by the primary lung carcinoma. This measures approximately 3.7 x 2.3 x 3.4 cm and o verall similar to exam of 08/07/2018. There is associated left perihilar abnormal soft tissue density . Mediastinal adenopathy is thought to blend with the soft tissue density. There are no greater than 1 cm hilar or mediastinal lymph nodes. Heart is mildly enlarged. No pericar dial effusion is seen. OTHER: Thyroid gland is diffusely heterogenous and enlarged with substernal extent. There is redemonstration of skeletal osseous metastasis with destruction of T3, T4, T5, and T6 verteb ral bodies with sclerosis of the lower thoracic vertebral bodies also seen. There is extent into the pedicles at T5 and T6 as well into the posterior left lateral ribs and transverse processes at these levels and neural foramen. IMPRESSION: 1. No evidence of pulmonary embolus however there is encasement and severe narrowing of the segmental and subsegmental pulmonary arteries to the anterior segments of the left upper lobe secondary to the left upper lobe and left perihilar primary neoplasm appearing similar in size to the prior exam of 1 . 2. Redemonstration extensive multifocal osseous destructive metastasis most notably at T5 and T6 with extent into the neural foramen, posterior elements and at least abutting if not extending into the s abigail canal.
[2018-09-01] MEDS: HEPARIN SOD,PORK IN 0.45% NACL 25,000 UNIT in 0.45% NACL 1 500ML.BAG IV SCH (16:00)
--- NOTE | 2018-09-01 16:54 | ECHOF ---
Referral Reason:afib MEASUREMENTS -------- HEIGHT: 170.2 cm WEIGHT: 91.2 kg BP: 109/60 RVIDd: 2.6 cm (< 3.3) IVSd: 1.3 cm (0.6 - 1.1) LVIDd: 3.8 cm (3.9 - 5.3) LVPWd: 1.1 cm (0.6 - 1.1) IVSs: 1.8 cm LVIDs: 2.2 cm LVPWs: 1.7 cm LA Diam: 3.1 cm (2.7 - 3.8) LAESV Index (A-L): 22.03 ml/m Ao Diam: 3.6 cm (2.0 - 3.7) AV Cusp: 2.3 cm (1.5 - 2.6) MV EXCURSION: 15.488 mm (> 18.000) MV EF SLOPE: 126 mm/s (70 - 150) EPSS: 1.0 cm MV E Sedrick: 1.11 m/s MV DecT: 187 ms MV A Sedrick: 0.96 m/s MV E/A Ratio: 1.16 RAP: 5.00 mmHg RVSP: 28.76 mmHg FINDINGS -------- Sinus rhythm. This was a technically adequate study. The left ventricular size is normal. There is borderline concentric left ventricular hypertrophy. Overall left ventricular systolic function is normal with, an EF between 55 - 60 %. The right ventricle is normal in size. Normal LA size by volume 22+/-6 ml/m2. The right atrium is normal in size. The aortic valve is trileaflet and appears structurally normal. Mild mitral annular calcification present. Mild mitral regurgitation is present. Mild tricuspid regurgitation present. Right ventricular systolic pressure is normal at < 35 mmHg. Trace/mild (physiologic) pulmonic regurgitation. The aortic root size is normal. Normal inferior vena cava with normal inspiratory collapse consistent with estimated right atrial pre ssure of 5 mmHg. The inferior vena cava is mildly dilated. There is no pericardial effusion. CONCLUSIONS -------- 1. Sinus rhythm. 2. This was a technically adequate study. 3. The left ventricular size is normal. 4. There is borderline concentric left ventricular hypertrophy. 5. Overall left ventricular systolic function is normal with, an EF between 55 - 60 %. 6. Normal LA size by volume 22+/-6 ml/m2. 7. The aortic valve is trileaflet and appears structurally normal. 8. Mild mitral annular calcification present. 9. Mild mitral regurgitation is present. 10. Mild tricuspid regurgitation present. 11. Right ventricular systolic pressure is normal at < 35 mmHg. 12. Trace/mild (physiologic) pulmonic regurgitation. 13. The aortic root size is normal. 14. Normal inferior vena cava with normal inspiratory collapse consistent with estimated right atrial pressure of 5 mmHg. 15. The inferior vena cava is mildly dilated. 16. There is no pericardial effusion. TIRE ASSEMBLER: Lexi Gill RDCS
[2018-09-01] MEDS: LEVOFLOXACIN 750MG-D5W PMX 750 MG in DEXTROSE/WATER 1 150ML.BAG IVPB SCH (17:03)
[2018-09-01] MEDS: FLAXSEED OIL 1000 MG PO SCH (17:08)
--- NOTE | 2018-09-01 20:20 | P.PN ---
Subjective Progress Note Date: 09/01/18 the patient developed A. fib with RVR, but has since reverted back to sinus rhythm. She was started on anticoagulation. She was placed on Cardizem drip which was discontinued after normalization of rhythm. She denied any chest pain. No history of shortness of breath or baseline. No history of fever/ chills. She is tolerating full liquids without nausea or vomiting. She reports bowel movement Objective - Vital Signs Vital signs: Vital Signs Temp 98.6 F 09/01/18 16:00 Pulse 80 09/01/18 16:00 Resp 18 09/01/18 16:00 BP 134/73 09/01/18 16:00 Pulse Ox 100 09/01/18 16:00 Intake & Output 09/01/18 09/01/18 09/02/18 06:59 18:59 06:59 Intake Total 1340 Output Total 800 Balance 540 Weight 91.172 kg Intake: Intake, IV Titration 500 Amount Heparin Sod,Pork in 0.45% 500 NaCl 25,000 unit In 0.45 % NaCl 1 500ml.bag @ 11 UNITS/KG/HR 20.05 mls/hr IV .Q24H ELSA Rx#: [id number] Oral 840 Output: Urine 800 Other: # Voids 1 - Constitutional General appearance: Present: no acute distress - EENT Eyes: Present: EOMI ENT: Present: hearing grossly normal, normal oropharynx - Respiratory Respiratory: bilateral: CTA - Cardiovascular Rhythm: regular Heart sounds: normal: S1, S2 - Gastrointestinal General gastrointestinal: Present: normal bowel sounds, soft - Integumentary Integumentary: Present: normal - Neurologic Neurologic: Present: CNII-XII intact - Musculoskeletal Musculoskeletal: Present: generalized weakness, strength equal bilaterally - Psychiatric Psychiatric: Present: A&O x's 3, appropriate affect - Labs CBC & Chem 7: 09/01/18 03:59 09/01/18 03:59 Labs: Abnormal Lab Results - Last 24 Hours (Table) 09/01/18 09/01/18 09/01/18 Range/Units 03:59 03:59 03:59 WBC 2.1 L (3.8-10.6) k/uL RBC 2.85 L (3.80-5.40) m/uL Hgb 8.6 L (11.4-16.0) gm/dL Hct 26.0 L (34.0-46.0) % Lymphocytes # 0.2 L (1.0-4.8) k/uL APTT (22.0-30.0) sec Sodium 136 L (137-145) mmol/L Chloride 109 H (98-107) mmol/L Glucose 101 H (74-99) mg/dL Calcium 7.0 L (8.4-10.2) mg/dL ALT 69 H (9-52) U/L Total Creatine Kinase <20 L (30-135) U/L Troponin I 0.151 H* (0.000-0.034) ng/mL Total Protein 4.4 L (6.3-8.2) g/dL Albumin 2.2 L (3.5-5.0) g/dL 09/01/18 Range/Units 05:00 WBC (3.8-10.6) k/uL RBC (3.80-5.40) m/uL Hgb (11.4-16.0) gm/dL Hct (34.0-46.0) % Lymphocytes # (1.0-4.8) k/uL APTT 52.2 H (22.0-30.0) sec Sodium (137-145) mmol/L Chloride (98-107) mmol/L Glucose (74-99) mg/dL Calcium (8.4-10.2) mg/dL ALT (9-52) U/L Total Creatine Kinase (30-135) U/L Troponin I (0.000-0.034) ng/mL Total Protein (6.3-8.2) g/dL Albumin (3.5-5.0) g/dL Microbiology - Last 24 Hours (Table) 08/30/18 11:28 Blood Culture - Preliminary Blood No Growth after 48 hours 08/30/18 13:01 Urine Culture - Final Urine,Clean Catch Assessment and Plan (1) Small bowel obstruction, partial Narrative/Plan: the patient is being managed conservatively by surgery. She has improved in terms of symptoms. She is able to tolerate full liquids without nausea or vomiting. She is having bowel movements, and passing gas. Advance diet per surgery Current Visit: Yes Status: Acute Code(s): K56.600 - PARTIAL INTESTINAL OBSTRUCTION, UNSPECIFIED TO CAUSE SNOMED Code(s): 380608394 (2) Metastatic lung cancer (metastasis from lung to other site) Narrative/Plan: the patient is receiving radiation to the brain and to the T-spine. She will resume that next week Current Visit: No Status: Acute Priority: High Code(s): C34.90 - MALIGNANT NEOPLASM OF UNSP PART OF UNSP BRONCHUS OR LUNG SNOMED Code(s): 68187633 (3) Urinary tract infection Current Visit: Yes Status: Acute Code(s): N39.0 - URINARY TRACT INFECTION, SITE NOT SPECIFIED SNOMED Code(s): 00774840 (4) Atrial fibrillation Narrative/Plan: this is new for the patient. This potentially could be due to her not being able to take her antihypertensive medication, as well as dehydration. However given her risk factors, PE should be ruled out. CTA will be ordered Current Visit: Yes Status: Acute Code(s): I48.91 - UNSPECIFIED ATRIAL FIBRILLATION SNOMED Code(s): 66503276
[2018-09-01] MEDS: DILTIAZEM 50 MG in SODIUM CHLORIDE 0.9% 40 ML IV SCH ×2 (20:21→20:22)
[2018-09-01] MEDS: ASPIRIN 81 MG PO SCH (20:28)
[2018-09-02 00:23] LABS: Calcium 7.6 mg/dL (8.4-10.2); Magnesium 1.9 mg/dL (1.6-2.3)
[2018-09-02 00:39] LABS: Potassium 3.7 mmol/L (3.5-5.1)
[2018-09-02] MEDS: DILTIAZEM 50 MG in SODIUM CHLORIDE 0.9% 40 ML IV SCH (02:12)
[2018-09-02 07:36] LABS: Basophils % (A) 0 %; Eosinophils % (A) 1 %; HCT 30.7 % (34.0-46.0); HGB 9.9 gm/dL (11.4-16.0); Lymphocytes # (A) 0.3 k/uL (1.0-4.8); Lymphocytes % (A) 11 %; MCH 30.2 pg (25.0-35.0); MCHC 32.2 g/dL (31.0-37.0); MCV 93.6 fL (80.0-100.0); Mean Platelet Volume 6.9; Monocytes # (A) 0.2 k/uL (0-1.0); Monocytes % (A) 9 %; Neutrophils # (A) 1.9 k/uL (1.3-7.7); Neutrophils % (A) 76 %; Platelet Count 273 k/uL (150-450); RBC 3.28 m/uL (3.80-5.40); RDW 14.5 % (11.5-15.5); WBC 2.5 k/uL (3.8-10.6)
[2018-09-02 07:56] LABS: Albumin 2.8 g/dL (3.5-5.0); Calcium 7.6 mg/dL (8.4-10.2); Potassium 3.9 mmol/L (3.5-5.1); Total Bilirubin 0.4 mg/dL (0.2-1.3); Total Protein 5.3 g/dL (6.3-8.2)
[2018-09-02] MEDS: DEXAMETHASONE 4 MG TAB PO SCH (08:10)
[2018-09-02] MEDS: HYDROcodone/APAP 7.5-325MG 1 EACH TAB PO PRN ×3 (08:10→23:05)
[2018-09-02] MEDS: PANTOPRAZOLE 40 MG/10 ML VIAL IV SCH (08:10)
[2018-09-02] MEDS: MULTIVITAMINS, THERA 1 EACH TAB PO SCH (08:10)
[2018-09-02] MEDS: ATENOLOL 50 MG TAB PO SCH ×2 (08:11→20:02)
[2018-09-02] MEDS: DOCUSATE 100 MG CAP PO SCH (08:11)
[2018-09-02] MEDS: FLAXSEED OIL 1000 MG PO SCH (08:11)
[2018-09-02] MEDS: MEMANTINE 10 MG TAB PO SCH ×2 (08:11→20:02)
[2018-09-02] MEDS: CALCIUM CARB-VIT D 500MG-200UN 1 EACH TAB PO SCH (08:14)
[2018-09-02] MEDS: HEPARIN SOD,PORK IN 0.45% NACL 25,000 UNIT in 0.45% NACL 1 500ML.BAG IV SCH (10:53)
--- NOTE | 2018-09-02 11:26 | P.PN ---
Progress Note - Text Progress Note Date: 09/02/18 The patient denies any significant abdominal pain. She has no nausea. On exam her vital signs show Abdomen soft. Patient will continue her full liquid diet. If she has any abdominal placed we will reimage her. We will follow with you.
--- NOTE | 2018-09-02 13:10 | P.PN ---
Subjective Progress Note Date: 09/02/18 This is a 73-year-old female with history of lung CA with metastases who has been receiving radiation therapy. She initially presented to the hospital with symptoms of abdominal discomfort. Cardiology was asked to see the patient because of atrial fibrillation. She is currently in normal sinus rhythm, and has been through the night last night. She did state that she felt some intermittent heart racing through the night however on review of her rhythm strips, she has been persistently now in sinus rhythm. I pressure 126/ 70 with a heart rate in the 80s, 97% on room air. White Blood cell count 2.5, hemoglobin 9.9, platelet count 273. Sodium 138, potassium 3.9, BUN 9, creatinine 0.8. Objective - Vital Signs Vital signs: Vital Signs Temp 98.3 F 09/02/18 11:02 Pulse 81 09/02/18 11:02 Resp 18 09/02/18 11:02 BP 126/76 09/02/18 11:02 Pulse Ox 97 09/02/18 11:02 Intake & Output 09/01/18 09/02/18 09/02/18 18:59 06:59 18:59 Intake Total 1340 480 480 Output Total 800 Balance 540 480 480 Weight 87.5 kg Intake: Intake, IV Titration 500 Amount Heparin Sod,Pork in 0.45% 500 NaCl 25,000 unit In 0.45 % NaCl 1 500ml.bag @ 11 UNITS/KG/HR 20.05 mls/hr IV .Q24H [facility] Rx#: [id number] Oral 840 480 480 Output: Urine 800 Other: Voiding Method Toilet # Voids 1 - Exam PHYSICAL EXAMINATION: HEENT: Head is atraumatic, normocephalic. Pupils equal, round. Neck is supple. There is no elevated jugular venous pressure. HEART EXAMINATION: Heart sounds regular, S1 and S2 normal. No murmur or gallop heard. CHEST EXAMINATION: Lungs are clear to auscultation and precussion. No chest wall tenderness is noted on palpation or with deep breathing. ABDOMEN: Soft, nontender. Bowel sounds are heard. No organomegaly noted. EXTREMITIES: 2+ peripheral pulses with evidence of trace to 1+ peripheral edema and no calf tenderness noted. NEUROLOGIC patient is awake, alert and oriented x3. - Labs CBC & Chem 7: 09/02/18 06:50 09/02/18 06:50 Labs: Abnormal Lab Results - Last 24 Hours (Table) 09/02/18 09/02/18 09/02/18 Range/Units 00:01 06:50 06:50 WBC 2.5 L (3.8-10.6) k/uL RBC 3.28 L (3.80-5.40) m/uL Hgb 9.9 L (11.4-16.0) gm/dL Hct 30.7 L (34.0-46.0) % Lymphocytes # 0.3 L (1.0-4.8) k/uL APTT (22.0-30.0) sec Sodium 135 L (137-145) mmol/L Chloride 108 H 110 H (98-107) mmol/L Glucose 109 H 104 H (74-99) mg/dL Calcium 7.6 L 7.6 L (8.4-10.2) mg/dL ALT 68 H (9-52) U/L Total Protein 5.3 L (6.3-8.2) g/dL Albumin 2.8 L (3.5-5.0) g/dL 09/02/18 Range/Units 06:50 WBC (3.8-10.6) k/uL RBC (3.80-5.40) m/uL Hgb (11.4-16.0) gm/dL Hct (34.0-46.0) % Lymphocytes # (1.0-4.8) k/uL APTT 43.9 H (22.0-30.0) sec Sodium (137-145) mmol/L Chloride (98-107) mmol/L Glucose (74-99) mg/dL Calcium (8.4-10.2) mg/dL ALT (9-52) U/L Total Protein (6.3-8.2) g/dL Albumin (3.5-5.0) g/dL Microbiology - Last 24 Hours (Table) 08/30/18 11:28 Blood Culture - Preliminary Blood No Growth after 48 hours Assessment and Plan Plan: Assessment: #1 paroxysmal atrial fibrillation with rapid ventricular response, currently maintaining sinus rhythm #2 lung cancer with bone metastasis #3 abdominal discomfort, improving #4 hypertension #5 hyperlipidemia Plan Cardiology's perspective, patient may be able to be discharged home once cleared by primary. We'll make her a follow-up appointment in the office post discharge. She is being discharged on xarelto 20 mg daily. We will check regarding coverage prior to her discharge. DNP note has been reviewed, I agree with a documented findings and plan of care. Patient was seen and examined.
--- NOTE | 2018-09-02 13:56 | P.PN ---
Subjective Progress Note Date: 09/02/18 The pt is tolerating full liquids well. She denied any abdominal pain/n/v/f/ c. She has had no CP. She did have transient palpitations overnight. Objective - Vital Signs Vital signs: Vital Signs Temp 98.3 F 09/02/18 11:02 Pulse 81 09/02/18 11:02 Resp 18 09/02/18 11:02 BP 126/76 09/02/18 11:02 Pulse Ox 97 09/02/18 11:02 Intake & Output 09/01/18 09/02/18 09/02/18 18:59 06:59 18:59 Intake Total 1340 480 720 Output Total 800 Balance 540 480 720 Weight 87.5 kg Intake: Intake, IV Titration 500 Amount Heparin Sod,Pork in 0.45% 500 NaCl 25,000 unit In 0.45 % NaCl 1 500ml.bag @ 11 UNITS/KG/HR 20.05 mls/hr IV .Q24H [facility] Rx#: [id number] Oral 840 480 720 Output: Urine 800 Other: Voiding Method Toilet # Voids 1 - Constitutional General appearance: Present: no acute distress - EENT Eyes: Present: EOMI ENT: Present: hearing grossly normal, normal oropharynx - Respiratory Respiratory: bilateral: CTA - Cardiovascular Rhythm: regular Heart sounds: normal: S1, S2 - Gastrointestinal General gastrointestinal: Present: normal bowel sounds, soft - Integumentary Integumentary: Present: normal - Neurologic Neurologic: Present: CNII-XII intact - Musculoskeletal Musculoskeletal: Present: generalized weakness, strength equal bilaterally - Psychiatric Psychiatric: Present: A&O x's 3, appropriate affect - Labs CBC & Chem 7: 09/02/18 06:50 09/02/18 06:50 Labs: Abnormal Lab Results - Last 24 Hours (Table) 09/02/18 09/02/18 09/02/18 Range/Units 00:01 06:50 06:50 WBC 2.5 L (3.8-10.6) k/uL RBC 3.28 L (3.80-5.40) m/uL Hgb 9.9 L (11.4-16.0) gm/dL Hct 30.7 L (34.0-46.0) % Lymphocytes # 0.3 L (1.0-4.8) k/uL APTT (22.0-30.0) sec Sodium 135 L (137-145) mmol/L Chloride 108 H 110 H (98-107) mmol/L Glucose 109 H 104 H (74-99) mg/dL Calcium 7.6 L 7.6 L (8.4-10.2) mg/dL ALT 68 H (9-52) U/L Total Protein 5.3 L (6.3-8.2) g/dL Albumin 2.8 L (3.5-5.0) g/dL 09/02/18 Range/Units 06:50 WBC (3.8-10.6) k/uL RBC (3.80-5.40) m/uL Hgb (11.4-16.0) gm/dL Hct (34.0-46.0) % Lymphocytes # (1.0-4.8) k/uL APTT 43.9 H (22.0-30.0) sec Sodium (137-145) mmol/L Chloride (98-107) mmol/L Glucose (74-99) mg/dL Calcium (8.4-10.2) mg/dL ALT (9-52) U/L Total Protein (6.3-8.2) g/dL Albumin (3.5-5.0) g/dL Microbiology - Last 24 Hours (Table) 08/30/18 11:28 Blood Culture - Preliminary Blood No Growth after 48 hours Assessment and Plan (1) Small bowel obstruction, partial Narrative/Plan: The pt is clinically improved with conservative management. Advance diet and discharge per surgery. Current Visit: Yes Status: Acute Code(s): K56.600 - PARTIAL INTESTINAL OBSTRUCTION, UNSPECIFIED TO CAUSE SNOMED Code(s): 427917916 (2) Metastatic lung cancer (metastasis from lung to other site) Narrative/Plan: The pt's biomarker results are now available, and were discussed with her. She does not have any biomarker positivity, that could be targeted with biologiv therapy alone in the 1st line. She would thus be recommended systemic combination chemo + Immunotherapy. The pt and her family desire a second opinion. The pt thinks that they have a referral to Thoracic Onc at [facility]. We will await the recommendations from that visit, prior to starting Current Visit: No Status: Acute Priority: High Code(s): C34.90 - MALIGNANT NEOPLASM OF UNSP PART OF UNSP BRONCHUS OR LUNG SNOMED Code(s): 33301642 (3) Atrial fibrillation Narrative/Plan: The case was d/w Cardiology. The small troponin leak is not felt to be significant. The pt has reverted back to NSR. Her CTA was negative for PE. Thus this was likely metabolic. They have recommended anticoagulation for now. She will be monitored closely when she starts systemic chemo. If she has issues with significant thrombocytopenia, then she will be evaluated for cessation, if she remains in NSR. Current Visit: Yes Status: Acute Code(s): I48.91 - UNSPECIFIED ATRIAL FIBRILLATION SNOMED Code(s): 08766811 Plan: repeat Ca 19-9. If still elevated, consider EUS as outpt to complete w/u for pancreatic primary. MRI pancreas was negative
--- NOTE | 2018-09-02 14:39 | P.PN ---
Subjective Progress Note Date: 09/02/18 This is a 73-year-old female patient of Dr. Vides. Patient presents to the emergency room with complaints of nausea vomiting and diarrhea. Patient states she's had vomiting and diarrhea about 5 times at home with intermittent abdominal cramping. 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 Patient recently admitted for fever but symptoms had resolved and patient was discharged. During previous admission CA-19-9 was elevated and patient underwent MRI of the pancreas and abdomen. Chest x-ray completed showing no acute process seen. X-ray of abdomen completed showing underlying small bowel obstruction, correlate. Bone metastases disease. CT of abdomen completed showing new mid small bowel wall thickening involving the mid ileum likely related to inflammatory process. There is distended more proximal ileum that is suggestive some degree of mechanical obstruction. There is new minimal ascites fluid compared to last exam. Numerous osteolytic lesions consistent with metastases disease. Dilated gallbladder suggestive of cholecystitis. Dr. herrera of been consulted for surgical services. Dr. dee been consulted for oncology. Urine and blood cultures have been ordered. Patient started on Levaquin for IV antibiotics. UA showing moderate amount of leukocyte Estrace. Actiq acid also elevated at 2.1. Patient received 4 L of IV fluid repeat lactic acid 1.4. At this time patient is in bed. Patient denies chest pain or shortness of breath. States abdominal pain had subsided. She denies any urinary burning or frequency. On 09/01/2018 patient is currently resting comfortably in bed. Patient went into A. fib with RVR yesterday it was transferred to cardiac stepdown care unit. Patient currently on heparin drip and cardiology services have been consulted. At this time patient denies chest pain or shortness of breath. Patient denies nausea vomiting or diarrhea. Patient states abdominal pain has improved. Patient is still having loose stools. On 09/02/2018 patient is alert and oriented 3 no new episode of atrial fibrillation she denies any fever or chills no headache or dizziness no chest pain no shortness of breath no cough no nausea or vomiting no abdominal pain and no urinary symptoms urine culture is negative at this time will discontinue IV Levaquin will discontinue IV heparin, patient will be started on Xarelto 20 mg by mouth daily Objective - Vital Signs Vital signs: Vital Signs Temp 98.3 F 09/02/18 11:02 Pulse 81 09/02/18 11:02 Resp 18 09/02/18 11:02 BP 126/76 09/02/18 11:02 Pulse Ox 97 09/02/18 11:02 Intake & Output 09/01/18 09/02/18 09/02/18 18:59 06:59 18:59 Intake Total 1340 480 720 Output Total 800 Balance 540 480 720 Weight 87.5 kg Intake: Intake, IV Titration 500 Amount Heparin Sod,Pork in 0.45% 500 NaCl 25,000 unit In 0.45 % NaCl 1 500ml.bag @ 11 UNITS/KG/HR 20.05 mls/hr IV .Q24H [facility] Rx#: [id number] Oral 840 480 720 Output: Urine 800 Other: Voiding Method Toilet # Voids 1 - Exam Head normocephalic and atraumatic Neck supple no JVD no goiter Lungs clear to auscultation bilaterally no wheezing or crackles Heart regular rate and rhythm S1-S2, no rub or gallop Abdomen is soft nontender nondistended positive bowel sounds no hepatosplenomegaly Extremities no edema no cyanosis or clubbing Neuro alert and orientated to 3 no gross focal deficit - Labs CBC & Chem 7: 09/02/18 06:50 09/02/18 06:50 Labs: Abnormal Lab Results - Last 24 Hours (Table) 09/02/18 09/02/18 09/02/18 Range/Units 00:01 06:50 06:50 WBC 2.5 L (3.8-10.6) k/uL RBC 3.28 L (3.80-5.40) m/uL Hgb 9.9 L (11.4-16.0) gm/dL Hct 30.7 L (34.0-46.0) % Lymphocytes # 0.3 L (1.0-4.8) k/uL APTT (22.0-30.0) sec Sodium 135 L (137-145) mmol/L Chloride 108 H 110 H (98-107) mmol/L Glucose 109 H 104 H (74-99) mg/dL Calcium 7.6 L 7.6 L (8.4-10.2) mg/dL ALT 68 H (9-52) U/L Total Protein 5.3 L (6.3-8.2) g/dL Albumin 2.8 L (3.5-5.0) g/dL 09/02/18 Range/Units 06:50 WBC (3.8-10.6) k/uL RBC (3.80-5.40) m/uL Hgb (11.4-16.0) gm/dL Hct (34.0-46.0) % Lymphocytes # (1.0-4.8) k/uL APTT 43.9 H (22.0-30.0) sec Sodium (137-145) mmol/L Chloride (98-107) mmol/L Glucose (74-99) mg/dL Calcium (8.4-10.2) mg/dL ALT (9-52) U/L Total Protein (6.3-8.2) g/dL Albumin (3.5-5.0) g/dL Microbiology - Last 24 Hours (Table) 08/30/18 11:28 Blood Culture - Preliminary Blood No Growth after 72 hours Assessment and Plan Plan: 1. Abdominal pain with nausea and vomiting. Abdomen and pelvis CT completed showing new mid small bowel wall thickening involving the mid ileum likely related to inflammatory process. There is distended more proximal ileum that is suggestive some degree of mechanical obstruction. There is new minimal ascites fluid compared to last exam. Numerous osteolytic lesions consistent with metastases disease. Dilatated gallbladder suggestive cholecystitis. Per surgical services no surgical intervention planned at this time. Patient tolerating diet 2. Urinary tract infection. Urine and blood Culture has been ordered. Patient currently maintained on Levaquin. Dr. Dinh has been consulted for infectious disease 3. Recent diagnosis of lung cancer with metastasis disease to spine and brain. Mild the pancreas completed showing mild enlargement distal pancreatic duct. No obstructing lesion seen. Clinical significance is not clear. No evidence of pancreatic mass. Bile ducts appear normal. Dr. magana has been consulted from oncology services. Patient has been undergoing radiation therapy to spine femur and brain 4. Hyperlipidemia 5. History of essential hypertension. Atenolol resumed 6. Hyperthyroidism. Continue Synthroid. TSH level ordered 7. Atrial fibrillation with rapid ventricular response. Patient transferred to cardiac stepdown unit. Patient started on heparin drip and cardiology services have been consulted. She currently on Cardizem drip. TSH level has been ordered. Per cardiology services continue anticoagulation with heparin. 2 -D echo has been ordered. Continue beta yanira DVT prophylaxis heparin drip. GI prophylaxis Protonix.
--- NOTE | 2018-09-02 16:17 | PN ---
PROGRESS NOTE DATE OF SERVICE: 09/02/2018. REASON FOR FOLLOWUP: Urinary tract infection. INTERVAL HISTORY: The patient is currently afebrile. She is breathing comfortably. No further nausea or vomiting has been noted. No abdominal pain. No diarrhea. Denies any burning or frequency of urine. EXAMINATION: Blood pressure 126/76 with a pulse of 81, temperature 98.3. She is 97% on room air. General description is an elderly female up in the bed in no distress. RESPIRATORY SYSTEM: Unlabored breathing. Clear to auscultation anteriorly. HEART: S1, S2. Regular rate and rhythm. ABDOMEN: Soft, no tenderness. LABS: Hemoglobin 9.8, white count 2.5 with a BUN of 9, creatinine 0.82. Urine cultures have been negative. DIAGNOSTIC IMPRESSION AND PLAN: Patient admitted to the hospital with nausea and vomiting and the patient does have possible urinary tract infection. She did have positive UA however the culture has been negative so far. Possible mild cystitis has been adequately treated. No need for antibiotic on discharge. Plan of care discussed with the admitting physician. She has been advised to take a probiotic and yogurt. MMODL / IJN: [id number] /
[2018-09-02] MEDS ORDERED: RIVAROXABAN 20 MG TAB PO SCH (17:30)
[2018-09-03 06:51] LABS: Basophils % (A) 0 %; Eosinophils # (A) 0.1 k/uL (0-0.7); Eosinophils % (A) 2 %; HCT 28.1 % (34.0-46.0); HGB 9.3 gm/dL (11.4-16.0); Lymphocytes # (A) 0.3 k/uL (1.0-4.8); Lymphocytes % (A) 14 %; MCH 30.9 pg (25.0-35.0); MCHC 33.1 g/dL (31.0-37.0); MCV 93.4 fL (80.0-100.0); Mean Platelet Volume 6.9; Monocytes # (A) 0.2 k/uL (0-1.0); Monocytes % (A) 9 %; Neutrophils # (A) 1.7 k/uL (1.3-7.7); Neutrophils % (A) 71 %; Platelet Count 269 k/uL (150-450); RBC 3.01 m/uL (3.80-5.40); RDW 14.9 % (11.5-15.5); WBC 2.4 k/uL (3.8-10.6)
[2018-09-03 07:08] LABS: Albumin 2.5 g/dL (3.5-5.0); Calcium 8.2 mg/dL (8.4-10.2); Potassium 4.6 mmol/L (3.5-5.1); Total Bilirubin 0.3 mg/dL (0.2-1.3); Total Protein 4.9 g/dL (6.3-8.2)
[2018-09-03 08:26] VITALS: RESP 18
[2018-09-03] MEDS: DEXAMETHASONE 4 MG TAB PO SCH (08:35)
[2018-09-03] MEDS: HYDROcodone/APAP 7.5-325MG 1 EACH TAB PO PRN (08:35)
[2018-09-03] MEDS: MULTIVITAMINS, THERA 1 EACH TAB PO SCH (08:35)
[2018-09-03] MEDS: MEMANTINE 10 MG TAB PO SCH (08:35)
[2018-09-03] MEDS: ATENOLOL 50 MG TAB PO SCH (08:35)
[2018-09-03] MEDS: PANTOPRAZOLE 40 MG/10 ML VIAL IV SCH (08:35)
[2018-09-03] MEDS: CALCIUM CARB-VIT D 500MG-200UN 1 EACH TAB PO SCH (08:35)
[2018-09-03] MEDS: DOCUSATE 100 MG CAP PO SCH (08:36)
[2018-09-03] MEDS: FLAXSEED OIL 1000 MG PO SCH (08:36)
[2018-09-03] MEDS ORDERED: PANTOPRAZOLE 40 MG TABLET PO SCH (08:45)
--- NOTE | 2018-09-03 10:38 | P.PN ---
Progress Note - Text Progress Note Date: 09/03/18 The patient is resting comfortably in her bed. She denies a significant abdominal pain. She's had multiple bowels. On exam her vital signs are stable. Her abdomen soft. History of metastatic lung cancer. The patient is doing well. She should be discharged home today. We will see her as needed.
[2018-09-03 11:09] VITALS: BP 134/80; PULSE 79; TEMP 98.2
--- NOTE | 2018-09-03 12:18 | P.PN ---
Subjective Progress Note Date: 09/03/18 This is a pleasant 73-year-old female with history of lung CA with metastasis who has been receiving radiation therapy. Presented to the emergency department with abdominal discomfort. Cardiology was subsequently consulted due to new onset atrial fibrillation, paroxysmal. She was initiated on Cardizem drip and his sense converted back to sinus rhythm. She is currently on atenolol 50 mg by mouth twice a day. Cardizem drip has been discontinued. She does have a history of hypertension hyperlipidemia. No history of atrial fibrillation or cardiac disease. She does have nausea and vomiting which has improved. She did complain of palpitations that subsequently resolved with resolution of atrial fibrillation. She has been started on Xarelto. Surgery has seen the patient and no plans for surgical intervention at this time. Objective - Vital Signs Vital signs: Vital Signs Temp 98.2 F 09/03/18 11:06 Pulse 79 09/03/18 11:06 Resp 18 09/03/18 11:06 BP 134/80 09/03/18 11:06 Pulse Ox 98 09/03/18 11:06 Intake & Output 09/02/18 09/03/18 09/03/18 18:59 06:59 18:59 Intake Total 970 480 Balance 970 480 Weight 87.5 kg Intake: Oral 970 480 Other: Voiding Method Toilet # Voids 1 - Exam PHYSICAL EXAMINATION: HEENT: Head is atraumatic, normocephalic. Pupils equal, round. Neck is supple. There is no elevated jugular venous pressure. HEART EXAMINATION: Heart sounds regular, S1 and S2 normal. No murmur or gallop heard. CHEST EXAMINATION: Lungs are clear to auscultation and precussion. No chest wall tenderness is noted on palpation or with deep breathing. ABDOMEN: Soft, nontender. Bowel sounds are heard. No organomegaly noted. EXTREMITIES: 2+ peripheral pulses with no evidence of peripheral edema and no calf tenderness noted. NEUROLOGIC patient is awake, alert and oriented x3. . - Labs CBC & Chem 7: 09/03/18 06:09 09/03/18 06:09 Labs: Abnormal Lab Results - Last 24 Hours (Table) 09/03/18 09/03/18 Range/Units 06:09 06:09 WBC 2.4 L (3.8-10.6) k/uL RBC 3.01 L (3.80-5.40) m/uL Hgb 9.3 L (11.4-16.0) gm/dL Hct 28.1 L (34.0-46.0) % Lymphocytes # 0.3 L (1.0-4.8) k/uL Chloride 110 H (98-107) mmol/L Calcium 8.2 L (8.4-10.2) mg/dL ALT 59 H (9-52) U/L Total Protein 4.9 L (6.3-8.2) g/dL Albumin 2.5 L (3.5-5.0) g/dL Microbiology - Last 24 Hours (Table) 08/30/18 11:28 Blood Culture - Preliminary Blood No Growth after 72 hours Assessment and Plan Assessment: #1 paroxysmal atrial fibrillation with rapid ventricular response, currently maintaining sinus rhythm #2 lung cancer with bone metastasis #3 abdominal discomfort, improving #4 hypertension #5 hyperlipidemia Plan: From cardiology's perspective, medications were reviewed and we will continue the same. From our standpoint, she may be discharged home and follow-up as an outpatient with Dr. Gonzales. ALMOND HULLER note has been reviewed, I agree with a documented findings and plan of care. Patient was seen and examined.
--- NOTE | 2018-09-03 13:05 | P.DS ---
Providers Date of admission: 08/31/18 12:32 Expected date of discharge: 09/03/18 Attending physician: Con Stevenson Consults: 08/30/18 14:47 Consult Physician Stat Consulting Provider: Khanh Leigh Consult Reason/Comments: Oncological care Do you want consulting provider notified?: Already Contacted 08/30/18 14:48 Consult Physician Urgent Consulting Provider: Serjio Castillo Consult Reason/Comments: Abdominal pain, possible obstruction Do you want consulting provider notified?: Yes 08/31/18 11:12 Consult Physician Routine Consulting Provider: Pratik Dinh Consult Reason/Comments: UTI, Do you want consulting provider notified?: Yes 08/31/18 12:18 Consult Physician Stat Consulting Provider: August Gonzales Consult Reason/Comments: new afib with RVR Do you want consulting provider notified?: Yes 09/01/18 09:58 Consult Physician Routine Consulting Provider: Jacob Victor Consult Reason/Comments: Radiation treatment Do you want consulting provider notified?: Yes Primary care physician: Kanika Vides Hospital Course: Diagnosis on discharge: 1. Abdominal pain with nausea and vomiting. Abdomen and pelvis CT completed showing new mid small bowel wall thickening involving the mid ileum likely related to inflammatory process. There is distended more proximal ileum that is suggestive some degree of mechanical obstruction. There is new minimal ascites fluid compared to last exam. Numerous osteolytic lesions consistent with metastases disease. Dilatated gallbladder suggestive cholecystitis. Per surgical services no surgical intervention planned at this time. Patient tolerating diet 2. Urinary tract infection. Urine and blood Culture has been ordered. Patient currently maintained on Levaquin. Dr. Dinh has been consulted for infectious disease 3. Recent diagnosis of lung cancer with metastasis disease to spine and brain. Mild the pancreas completed showing mild enlargement distal pancreatic duct. No obstructing lesion seen. Clinical significance is not clear. No evidence of pancreatic mass. Bile ducts appear normal. Dr. leigh has been consulted from oncology services. Patient has been undergoing radiation therapy to spine femur and brain 4. Hyperlipidemia 5. History of essential hypertension. Atenolol resumed 6. Hyperthyroidism. Continue Synthroid. TSH level ordered 7. Atrial fibrillation with rapid ventricular response. Patient transferred to cardiac stepdown unit. Patient started on heparin drip and cardiology services have been consulted. She currently on Cardizem drip. TSH level has been ordered. Per cardiology services continue anticoagulation with heparin. 2 -D echo has been ordered. Continue beta yanira Hospital course: This is a 73-year-old female patient of Dr. Vides. Patient presents to the emergency room with complaints of nausea vomiting and diarrhea. Patient states she's had vomiting and diarrhea about 5 times at home with intermittent abdominal cramping. 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 Patient recently admitted for fever but symptoms had resolved and patient was discharged. During previous admission CA-[id number] was elevated and patient underwent MRI of the pancreas and abdomen. Chest x-ray completed showing no acute process seen. X-ray of abdomen completed showing underlying small bowel obstruction, correlate. Bone metastases disease. CT of abdomen completed showing new mid small bowel wall thickening involving the mid ileum likely related to inflammatory process. There is distended more proximal ileum that is suggestive some degree of mechanical obstruction. There is new minimal ascites fluid compared to last exam. Numerous osteolytic lesions consistent with metastases disease. Dilated gallbladder suggestive of cholecystitis. Dr. herrera of been consulted for surgical services. Dr. dee been consulted for oncology. Urine and blood cultures have been ordered. Patient started on Levaquin for IV antibiotics. UA showing moderate amount of leukocyte Estrace. Actiq acid also elevated at 2.1. Patient received 4 L of IV fluid repeat lactic acid 1.4. At this time patient is in bed. Patient denies chest pain or shortness of breath. States abdominal pain had subsided. She denies any urinary burning or frequency. On 09/01/2018 patient is currently resting comfortably in bed. Patient went into A. fib with RVR yesterday it was transferred to cardiac stepdown care unit. Patient currently on heparin drip and cardiology services have been consulted. At this time patient denies chest pain or shortness of breath. Patient denies nausea vomiting or diarrhea. Patient states abdominal pain has improved. Patient is still having loose stools. On 09/02/2018 patient is alert and oriented 3 no new episode of atrial fibrillation she denies any fever or chills no headache or dizziness no chest pain no shortness of breath no cough no nausea or vomiting no abdominal pain and no urinary symptoms urine culture is negative at this time will discontinue IV Levaquin will discontinue IV heparin, patient will be started on Xarelto 20 mg by mouth daily On 09/03/2018 patient was seen and examined on the telemetry floor she is alert and oriented 3 in no apparent distress she denies any fever or chills no palpitation no evidence of any new episodes of atrial fibrillation there is no headache or dizziness no chest pain no shortness of breath no cough no GI or symptoms. Patient was evaluated by cardiology and was cleared for discharge, she will continue on the same home medication in addition Xarelto 20 mg once daily was added to her regimen. Patient will follow-up with her primary care physician Dr. Vides within one week, she will also follow-up with cardiology in 1-2 weeks Plan - Discharge Summary Discharge Rx Participant: No New Discharge Prescriptions: New Acetaminophen Tab [Tylenol] 650 mg PO Q6HR PRN tab PRN Reason: Mild Pain Or Fever > 100.5 Rivaroxaban [Xarelto] 20 mg PO W/SUPPER tab Continue Aspirin 81 mg PO HS Multivitamin/Iron/Folic Acid [Centrum Complete Multivit Tab] 1 tab PO DAILY Calcium Carbonate/Vitamin D3 [Caltrate 600 Plus D3 Tablet] 1 tab PO DAILY Atenolol [Tenormin] 50 mg PO HS Flaxseed Oil 1,000 mg PO DAILY Pantoprazole [Protonix] 40 mg PO AC-BID #60 tablet. Memantine [Namenda] 10 mg PO BID Docusate [Colace] 100 mg PO DAILY Dexamethasone [Decadron] 4 mg PO DAILY HYDROcodone/APAP 7.5-325MG [[place] 7.5-325] 1 tab PO Q6HR PRN PRN Reason: Pain Discontinued Acetaminophen Tab [Tylenol] 1,000 mg PO Q6HR PRN PRN Reason: Pain Discharge Medication List Aspirin 81 mg PO HS 12/12/14 [History] Atenolol [Tenormin] 50 mg PO HS 12/12/14 [History] Calcium Carbonate/Vitamin D3 [Caltrate 600 Plus D3 Tablet] 1 tab PO DAILY [History] Multivitamin/Iron/Folic Acid [Centrum Complete Multivit Tab] 1 tab PO DAILY 02/21 [History] Flaxseed Oil 1,000 mg PO DAILY 08/07/18 [History] Pantoprazole [Protonix] 40 mg PO AC-BID #60 tablet. 08/10/18 [Rx] Dexamethasone [Decadron] 4 mg PO DAILY 08/23/18 [History] Docusate [Colace] 100 mg PO DAILY 08/23/18 [History] HYDROcodone/APAP 7.5-325MG [[place] 7.5-325] 1 tab PO Q6HR PRN 08/23/18 [History] Memantine [Namenda] 10 mg PO BID 08/23/18 [History] Acetaminophen Tab [Tylenol] 650 mg PO Q6HR PRN tab 09/03/18 [Rx] Rivaroxaban [Xarelto] 20 mg PO W/SUPPER tab 09/03/18 [Rx] Follow up Appointment(s)/Referral(s): Kanika Vides MD [Primary Care Provider] - 1-2 days Darwin Demarco MD [STAFF PHYSICIAN] - 1 Week Activity/Diet/Wound Care/Special Instructions: Fouzia salmeron is $40 - script filled in [facility]
== END 2018-09-03 13:54 | disposition home or self-care (01) | DRG 389 ==
LOC: EC 10:48 → 3NMEDONC 14:49 → 4MS4W 16:59 → OBSVTOIN 08-31 12:32 → 3SCARD 08-31 13:10
PROVIDERS: ADMIT Internal Medicine; ATTEND Internal Medicine
DX: K56.600 Partial intestinal obstruction, unspecified as to cause (principal); C34.90 Malignant neoplasm of unspecified part of unspecified bronchus or lung; C79.31 Secondary malignant neoplasm of brain; C79.51 Secondary malignant neoplasm of bone; N39.0 Urinary tract infection, site not specified; E05.90 Thyrotoxicosis, unspecified without thyrotoxic crisis or storm; E78.5 Hyperlipidemia, unspecified; E86.0 Dehydration; G89.29 Other chronic pain; I10 Essential (primary) hypertension; I48.0 Paroxysmal atrial fibrillation; M54.5 Low back pain; Z79.82 Long term (current) use of aspirin; Z79.899 Other long term (current) drug therapy; Z96.642 Presence of left artificial hip joint; Z87.891 Personal history of nicotine dependence; Z98.49 Cataract extraction status, unspecified eye; Z96.1 Presence of intraocular lens; Z82.49 Family history of ischemic heart disease and other diseases of the circulatory system; Z83.3 Family history of diabetes mellitus
CPT/HCPCS: 36415; 71046; 71275; 74018; 74177; 80048; 80053; 81001; 82550; 82553; 83605; 83735; 84439; 84443; 84484; 85025; 85610; 85730; 86301; 87040; 87086; 93005; 93306; 96361; 96365; 96366; 96375; 96376; 99285

== ENCOUNTER 2018-09-11 19:40 | Emergency (ER) | payer MEDICARE ==
[2018-09-11] MEDS ORDERED: SODIUM CHLORIDE 0.9% 1,000 ML IV STA (20:35)
[2018-09-11 21:07] LABS: Basophils % (A) 0 %; Eosinophils # (A) 0.1 k/uL (0-0.7); Eosinophils % (A) 3 %; HGB 11.2 gm/dL (11.4-16.0); Lymphocytes # (A) 0.5 k/uL (1.0-4.8); Lymphocytes % (A) 9 %; MCHC 32.8 g/dL (31.0-37.0); MCV 91.4 fL (80.0-100.0); Mean Platelet Volume 6.6; Monocytes # (A) 0.3 k/uL (0-1.0); Monocytes % (A) 6 %; Neutrophils # (A) 4.1 k/uL (1.3-7.7); Neutrophils % (A) 80 %; Platelet Count 406 k/uL (150-450); RBC 3.72 m/uL (3.80-5.40); RDW 15.8 % (11.5-15.5); WBC 5.1 k/uL (3.8-10.6)
[2018-09-11 21:15] LABS: Albumin 3.2 g/dL (3.5-5.0); Calcium 8.9 mg/dL (8.4-10.2); Potassium 4.3 mmol/L (3.5-5.1); Total Bilirubin 0.6 mg/dL (0.2-1.3); Total Protein 5.7 g/dL (6.3-8.2)
[2018-09-11 21:16] LABS: INR 1.1 (<1.2)
[2018-09-11 21:17] LABS: Partial Thromboplastin Time 24.2 sec (22.0-30.0); Prothrombin Time 10.3 sec (9.0-12.0)
[2018-09-11 21:18] LABS: Creatine Kinase <20 U/L (30-135)
[2018-09-11 21:31] LABS: Creatine Kinase MB 0.5 ng/mL (0.0-2.4); Troponin I <0.012 ng/mL (0.000-0.034)
--- NOTE | 2018-09-11 21:32 | ED ---
General Adult HPI - General Chief complaint: Shortness of Breath Stated complaint: A Fib Source: patient, EMS Mode of arrival: EMS Limitations: no limitations - History of Present Illness Initial comments: Dictation was produced using [employer] dictation software. please excuse any grammatical, word or spelling errors. Chief Complaint: 73-year-old female presents with episode of palpitations. History of Present Illness: Patient is a 70 female past medical history of paroxysmal atrial fibrillation and she was recently discharged from, [facility] she was admitted for cancer therapy. Patient was just discharged recently. She was at home at rest when she experienced approximately 2 hour episode of palpitations. Patient states she has a history of atrial fibrillation with rapid ventricular rate that is paroxysmal in nature. Patient states that she became slightly lightheaded. She called EMS and was transferred to the emergency department. Upon arrival patient states that her symptoms resolved. Patient has no other complaints at this time. Patient states she had a similar episode after having multiple bouts of diarrhea. Patient has a history of primary lung cancer with metastases to several organs. The ROS documented in this emergency department record has been reviewed and confirmed by me. Those systems with pertinent positive or negative responses have been documented in the HPI. All other systems are other negative and/or noncontributory. - Related Data Home Medications Medication Instructions Recorded Confirmed Aspirin 81 mg PO HS 12/12/14 09/11/18 Atenolol [Tenormin] 50 mg PO HS 12/12/14 09/11/18 Calcium Carbonate/Vitamin D3 1 tab PO DAILY 12/12/14 09/11/18 [Caltrate 600 Plus D3 Tablet] Multivitamin/Iron/Folic Acid 1 tab PO DAILY 12/12/14 09/11/18 [Centrum Complete Multivit Tab] Flaxseed Oil 1,000 mg PO DAILY 08/07/18 09/11/18 Dexamethasone [Decadron] 4 mg PO DAILY 08/23/18 09/11/18 Docusate [Colace] 100 mg PO DAILY 08/23/18 09/11/18 HYDROcodone/APAP 7.5-325MG [[place] 1 tab PO Q6HR PRN 08/23/18 09/11/18 7.5-325] Memantine [Namenda] 10 mg PO BID 08/23/18 09/11/18 Rivaroxaban [Xarelto] 20 mg PO AC-SUPPER 09/11/18 09/11/18 Previous Rx's Medication Instructions Recorded Pantoprazole [Protonix] 40 mg PO AC-BID #60 tablet. 08/10/18 Acetaminophen Tab [Tylenol] 650 mg PO Q6HR PRN tab 09/03/18 Allergies Allergy/AdvReac Type Severity Reaction Status Date / Time No Known Allergies Allergy Verified 09/11/18 20:14 Review of Systems ROS Statement: Those systems with pertinent positive or pertinent negative responses have been documented in the HPI. ROS Other: All systems not noted in ROS Statement are negative. Past Medical History Past Medical History: Cancer, Hyperlipidemia, Hypertension, Thyroid Disorder Additional Past Medical History / Comment(s): Back pain since May 2018. 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, rt hip )has had radiation tx.thyroid nodules History of Any Multi-Drug Resistant Organisms: None Reported Past Surgical History: Orthopedic Surgery, Tonsillectomy Additional Past Surgical History / Comment(s): colonoscopy, left hip replacement cataract , past rt breast cyst aspiration Past Anesthesia/Blood Transfusion Reactions: No Reported Reaction Past Psychological History: No Psychological Hx Reported Smoking Status: Former smoker Past Alcohol Use History: Occasional Past Drug Use History: None Reported - Past Family History Father Family Medical History: Hyperlipidemia, Myocardial Infarction (ND) Mother Additional Family Medical History / Comment(s): diabetes General Exam - General Exam Comments Initial Comments: PHYSICAL EXAM: General Impression: Alert and oriented x3, not in acute distress HEENT: Normocephalic atraumatic, extra-ocular movements intact, pupils equal and reactive to light bilaterally, mucous membranes moist. Cardiovascular: Heart regular rate and rhythm, S1&S2 audible, no murmurs, rubs or gallops Chest: Lungs clear to auscultation bilaterally, no rhonchi, no wheeze, no rales Abdomen: Bowel sounds present, abdomen soft, non-tender, non-distended, no organomegaly Musculoskeletal: Pulses present and equal in all extremities, no peripheral edema Motor: Power 5/5 bilaterally, no focal deficits noted Neurological: CN II-XII grossly intact, no focal motor or sensory deficits noted Skin: Intact with no visualized rashes Psych: Normal affect and mood Limitations: no limitations Course Vital Signs 09/11/18 09/11/18 09/11/18 19:47 19:52 20:00 Temperature 99.0 F Pulse Rate 85 84 Respiratory 16 16 Rate Blood Pressure 102/67 102/67 102/67 O2 Sat by Pulse 99 99 99 Oximetry 09/11/18 09/11/18 09/11/18 20:30 20:53 21:30 Temperature Pulse Rate 80 80 77 Respiratory 16 16 14 Rate Blood Pressure 93/63 103/66 103/66 O2 Sat by Pulse 98 100 100 Oximetry 09/11/18 09/11/18 22:00 22:30 Temperature 98.6 F Pulse Rate 74 73 Respiratory 16 14 Rate Blood Pressure 123/70 107/62 O2 Sat by Pulse 97 97 Oximetry Medical Decision Making - Medical Decision Making ED course: 73-year-old female with chief complaint of palpitations. She has a history of paroxysmal H fibrillation. Medication review shows that she is on atenolol. All signs upon arrival are within acceptable limits. Lab evaluation obtained. CBC, coag panel, metabolic panel, cardiac enzymes are negative. TSH is negative. Chest x-ray shows no acute processes. Patient was observed in emergency department for several hours with no cardiac event seen on the monitor. Patient feels well. She will be referred to our local second cutter here because she doesn't have a second cutter in this area. Patient told to maintain hydration at home. Told to return to emergency Department with a repeat episode. Patient understandable and agreeable to plan. EKG Interpretation: A 12 lead EKG was obtained. It was interpreted by myself and attending physician. There is a P wave before every QRS complex. Rate is 89. Rhythm is normal sinus rhythm, MT interval 136, QRS 80, QTC 420. QT is not prolonged. No ST segment depression or elevation. . Overall, this EKG is unremarkable - Lab Data Result diagrams: 09/11/18 20:00 09/11/18 20:00 Lab Results 09/11/18 09/11/18 09/11/18 Range/Units 20:00 20:00 20:00 WBC 5.1 (3.8-10.6) k/uL RBC 3.72 L (3.80-5.40) m/uL Hgb 11.2 L (11.4-16.0) gm/dL Hct 34.0 (34.0-46.0) % MCV 91.4 (80.0-100.0) fL MCH 30.0 (25.0-35.0) pg MCHC 32.8 (31.0-37.0) g/dL RDW 15.8 H (11.5-15.5) % Plt Count 406 (150-450) k/uL Neutrophils % 80 % Lymphocytes % 9 % Monocytes % 6 % Eosinophils % 3 % Basophils % 0 % Neutrophils # 4.1 (1.3-7.7) k/uL Lymphocytes # 0.5 L (1.0-4.8) k/uL Monocytes # 0.3 (0-1.0) k/uL Eosinophils # 0.1 (0-0.7) k/uL Basophils # 0.0 (0-0.2) k/uL PT (9.0-12.0) sec INR (<1.2) APTT (22.0-30.0) sec Sodium 134 L (137-145) mmol/L Potassium 4.3 (3.5-5.1) mmol/L Chloride 103 (98-107) mmol/L Carbon Dioxide 23 (22-30) mmol/L Anion Gap 8 mmol/L BUN 15 (7-17) mg/dL Creatinine 1.14 H (0.52-1.04) mg/dL Est GFR (CKD-EPI)AfAm 55 (>60 ml/min/1.73 sqM) Est GFR (CKD-EPI)NonAf 48 (>60 ml/min/1.73 sqM) Glucose 106 H (74-99) mg/dL Uric Acid (3.7-7.4) mg/dL Calcium 8.9 (8.4-10.2) mg/dL Phosphorus (2.5-4.5) mg/dL Magnesium 2.0 (1.6-2.3) mg/dL Total Bilirubin 0.6 (0.2-1.3) mg/dL AST 27 (14-36) U/L ALT 49 (9-52) U/L Alkaline Phosphatase 134 H (38-126) U/L Total Creatine Kinase <20 L (30-135) U/L CK-MB (CK-2) 0.5 (0.0-2.4) ng/mL CK-MB (CK-2) Rel Index Troponin I <0.012 (0.000-0.034) ng/mL Total Protein 5.7 L (6.3-8.2) g/dL Albumin 3.2 L (3.5-5.0) g/dL TSH 0.647 (0.465-4.680) mIU/L 09/11/18 09/11/18 Range/Units 20:00 20:00 WBC (3.8-10.6) k/uL RBC (3.80-5.40) m/uL Hgb (11.4-16.0) gm/dL Hct (34.0-46.0) % MCV (80.0-100.0) fL MCH (25.0-35.0) pg MCHC (31.0-37.0) g/dL RDW (11.5-15.5) % Plt Count (150-450) k/uL Neutrophils % % Lymphocytes % % Monocytes % % Eosinophils % % Basophils % % Neutrophils # (1.3-7.7) k/uL Lymphocytes # (1.0-4.8) k/uL Monocytes # (0-1.0) k/uL Eosinophils # (0-0.7) k/uL Basophils # (0-0.2) k/uL PT 10.3 (9.0-12.0) sec INR 1.1 (<1.2) APTT 24.2 (22.0-30.0) sec Sodium (137-145) mmol/L Potassium (3.5-5.1) mmol/L Chloride (98-107) mmol/L Carbon Dioxide (22-30) mmol/L Anion Gap mmol/L BUN (7-17) mg/dL Creatinine (0.52-1.04) mg/dL Est GFR (CKD-EPI)AfAm (>60 ml/min/1.73 sqM) Est GFR (CKD-EPI)NonAf (>60 ml/min/1.73 sqM) Glucose (74-99) mg/dL Uric Acid 5.5 (3.7-7.4) mg/dL Calcium (8.4-10.2) mg/dL Phosphorus 3.8 (2.5-4.5) mg/dL Magnesium (1.6-2.3) mg/dL Total Bilirubin (0.2-1.3) mg/dL AST (14-36) U/L ALT (9-52) U/L Alkaline Phosphatase (38-126) U/L Total Creatine Kinase (30-135) U/L CK-MB (CK-2) (0.0-2.4) ng/mL CK-MB (CK-2) Rel Index Troponin I (0.000-0.034) ng/mL Total Protein (6.3-8.2) g/dL Albumin (3.5-5.0) g/dL TSH (0.465-4.680) mIU/L Disposition Clinical Impression: Palpitations Disposition: HOME SELF-CARE Condition: Good Instructions: Heart Palpitations (DC) Is patient prescribed a controlled substance at d/c from ED?: No Referrals: Kanika Vides MD [Primary Care Provider] - 1-2 days Misael Peralta MD [STAFF PHYSICIAN] - 1-2 days
[2018-09-11 21:53] LABS: Phosphorus 3.8 mg/dL (2.5-4.5); Uric Acid 5.5 mg/dL (3.7-7.4)
--- NOTE | 2018-09-11 22:54 | XR ---
EXAM: XR Chest, 2 Views CLINICAL HISTORY: ITS.REASON XR Reason: dysrhythmia TECHNIQUE: Frontal and lateral views of the chest. COMPARISON: No relevant prior studies available. FINDINGS: Lungs: Unremarkable. No consolidation. Pleural space: Unremarkable. No pneumothorax. Heart: Unremarkable. No cardiomegaly. Mediastinum: Unremarkable. Bones/joints: Unremarkable. IMPRESSION: Normal chest x-rays.
[2018-09-11 22:55] VITALS: BP 107/62; PULSE 73; RESP 14; TEMP 98.6
== END 2018-09-11 23:14 | disposition home or self-care (01) ==
LOC: EC 19:40
DX: I48.0 Paroxysmal atrial fibrillation (principal); I10 Essential (primary) hypertension; Z87.891 Personal history of nicotine dependence; Z79.01 Long term (current) use of anticoagulants; Z79.52 Long term (current) use of systemic steroids; Z79.82 Long term (current) use of aspirin; Z79.899 Other long term (current) drug therapy; Z85.118 Personal history of other malignant neoplasm of bronchus and lung; Z85.830 Personal history of malignant neoplasm of bone; Z85.841 Personal history of malignant neoplasm of brain; Z92.3 Personal history of irradiation; Z96.642 Presence of left artificial hip joint; Z82.49 Family history of ischemic heart disease and other diseases of the circulatory system
CPT/HCPCS: 36415; 71046; 80053; 82550; 82553; 83735; 84100; 84443; 84484; 84550; 85025; 85610; 85730; 93005; 99285

== ENCOUNTER 2018-11-14 13:07 | Emergency (ER) | payer MEDICARE ==
[2018-11-14 13:17] VITALS: RESP 18
[2018-11-14] MEDS ORDERED: FAMOTIDINE 20 MG/2 ML VIAL IV STA (13:28)
[2018-11-14] MEDS ORDERED: ONDANSETRON 4 MG/2 ML VIAL IVP STA (13:28)
[2018-11-14] MEDS ORDERED: SODIUM CHLORIDE 0.9% 1,000 ML IV STA (13:28)
--- NOTE | 2018-11-14 13:30 | ED ---
General Adult HPI - General Source: patient, RN notes reviewed Mode of arrival: EMS Limitations: no limitations <Serjio Luke - Last Filed: 11/14/18 15:13> <Chris Kirby - Last Filed: 11/14/18 15:43> - General Chief complaint: Nausea/Vomiting/Diarrhea Stated complaint: dehydration Time Seen by Provider: 11/14/18 13:18 - History of Present Illness Initial comments: Patient 73-year-old female significant past medical history for lung cancer with bone metastasis, presented to the emergency room today with a chief complaint of increased nausea vomiting and diarrhea over the last 3 days. Patient does admit that she was started on a new chemo medication 12 days ago. She has talked to her oncologist and was advised come here to the emergency room for possible dehydration. Patient does admit that her nurse was at the house yesterday and noticed that her blood pressure was dropping when she stood up. Patient does admit that she was given some nausea medication and fluids by EMS and is starting to feel better. She does admit with the vomiting she was noticing a acid-type taste. Denies any signs of blood. Patient denies any other complaint currently. Patient denies any recent fever, chills, shortness of breath, chest pain, numbness or tingling, dysuria or hematuria, constipation , headaches or visual changes, or any other complaints. (Serjio Luke) - Related Data Home Medications Medication Instructions Recorded Confirmed Atenolol [Tenormin] 50 mg PO HS 12/12/14 11/14/18 Rivaroxaban [Xarelto] 20 mg PO AC-SUPPER 09/11/18 11/14/18 HYDROcodone/APAP 10-325MG [[place] 1 tab PO Q6H PRN 11/14/18 11/14/18 10-325] fentaNYL 25MCG/HR PATCH [Duragesic 25 mcg TRANSDERM Q72H 11/14/18 11/14/18 25MCG/HR] Previous Rx's Medication Instructions Recorded Pantoprazole [Protonix] 40 mg PO AC-BID #60 tablet. 08/10/18 Acetaminophen Tab [Tylenol] 650 mg PO Q6HR PRN tab 09/03/18 Ondansetron Odt [Zofran ODT] 4 mg PO Q8HR PRN #20 tab 11/14/18 Allergies Allergy/AdvReac Type Severity Reaction Status Date / Time No Known Allergies Allergy Verified 11/14/18 14:50 Review of Systems ROS Other: All systems not noted in ROS Statement are negative. <LukeSerjio - Last Filed: 11/14/18 15:13> ROS Other: All systems not noted in ROS Statement are negative. <Chris Kirby - Last Filed: 11/14/18 15:43> ROS Statement: Those systems with pertinent positive or pertinent negative responses have been documented in the HPI. Past Medical History Past Medical History: Cancer, Hyperlipidemia, Hypertension, Thyroid Disorder Additional Past Medical History / Comment(s): Back pain since May 2018. 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, rt hip )has had radiation tx.thyroid nodules History of Any Multi-Drug Resistant Organisms: None Reported Past Surgical History: Orthopedic Surgery, Tonsillectomy Additional Past Surgical History / Comment(s): colonoscopy, left hip replacement cataract , past rt breast cyst aspiration Past Anesthesia/Blood Transfusion Reactions: No Reported Reaction Past Psychological History: No Psychological Hx Reported Smoking Status: Former smoker Past Alcohol Use History: Rare Past Drug Use History: None Reported - Past Family History Father Family Medical History: Hyperlipidemia, Myocardial Infarction ([place]) Mother Additional Family Medical History / Comment(s): diabetes <Serjio Luke - Last Filed: 11/14/18 15:13> General Exam Limitations: no limitations <Serjio Luke - Last Filed: 11/14/18 15:13> <Chris Kirby - Last Filed: 11/14/18 15:43> - General Exam Comments Initial Comments: General: The patient is awake and alert, in no distress Eye: Pupils are equal, round and reactive to light, extra-ocular movements are intact. No nystagmus. There is normal conjunctiva bilaterally. No signs of icterus. Ears, nose, mouth and throat: There are moist mucous membranes and no oral lesions. Neck: The neck is suppl Cardiovascular: There is a regular rate and rhythm. Respiratory: Lungs are clear to auscultation, respirations are non-labored, breath sounds are equal. Gastrointestinal: Admits soft nontender. Musculoskeletal: Normal ROM, no tenderness. Neurological: A&O x 3. CN II-XII intact, There are no obvious motor or sensory deficits. Coordination appears grossly intact. Speech is normal. Skin: Skin is warm and dry and no rashes or lesions are noted. Psychiatric: Cooperative, appropriate mood & affect, normal judgment. (Serjio Luke) Vital Signs 11/14/18 11/14/18 11/14/18 13:14 14:38 15:27 Temperature 99.5 F 99.1 F Pulse Rate 93 98 102 H Respiratory 18 18 18 Rate Blood Pressure 135/72 149/79 133/67 O2 Sat by Pulse 100 100 98 Oximetry Medical Decision Making - Lab Data Result diagrams: 11/14/18 13:41 11/14/18 13:41 <Serjio Luke - Last Filed: 11/14/18 15:13> - Lab Data Result diagrams: 11/14/18 13:41 11/14/18 13:41 <Chris Kirby - Last Filed: 11/14/18 15:43> - Medical Decision Making Patient reexamined at this time shows no signs of distress. Patient's labs been reviewed. Patient's ambulatory here in emergency room. Patient states feels comfortable being discharged she states she does have family members that will be staying with her states she usually uses a walker at home feels much better after IV fluids. Patient does have Zofran but there are tablet form. Patient will be given prescription for Zofran ODT. Advised to return if symptoms increase or worsen. Advised follow-up through her oncologist tomorrow. (Serjio Luke) Patient reevaluated, she is resting comfortably, feeling better after IV hydration and Zofran. Patient will be switched ODT Zofran, will present with worsening or changing symptoms. (Chris Kirby) - Lab Data Lab Results 11/14/18 11/14/18 11/14/18 Range/Units 13:41 13:41 13:41 WBC 4.0 (3.8-10.6) k/uL RBC 3.95 (3.80-5.40) m/uL Hgb 11.9 (11.4-16.0) gm/dL Hct 35.5 (34.0-46.0) % MCV 89.9 (80.0-100.0) fL MCH 30.0 (25.0-35.0) pg MCHC 33.4 (31.0-37.0) g/dL RDW 14.8 (11.5-15.5) % Plt Count 190 D (150-450) k/uL Neutrophils % 85 % Lymphocytes % 4 % Monocytes % 6 % Eosinophils % 2 % Basophils % 0 % Neutrophils # 3.4 (1.3-7.7) k/uL Lymphocytes # 0.1 L (1.0-4.8) k/uL Monocytes # 0.2 (0-1.0) k/uL Eosinophils # 0.1 (0-0.7) k/uL Basophils # 0.0 (0-0.2) k/uL PT 11.4 (9.0-12.0) sec INR 1.1 (<1.2) APTT 23.3 (22.0-30.0) sec Sodium 135 L (137-145) mmol/L Potassium 3.5 (3.5-5.1) mmol/L Chloride 101 (98-107) mmol/L Carbon Dioxide 26 (22-30) mmol/L Anion Gap 8 mmol/L BUN 27 H (7-17) mg/dL Creatinine 0.60 (0.52-1.04) mg/dL Est GFR (CKD-EPI)AfAm >90 (>60 ml/min/1.73 sqM) Est GFR (CKD-EPI)NonAf >90 (>60 ml/min/1.73 sqM) Glucose 103 H (74-99) mg/dL Calcium 7.8 L (8.4-10.2) mg/dL Total Bilirubin 1.0 (0.2-1.3) mg/dL AST 33 (14-36) U/L ALT 55 H (9-52) U/L Alkaline Phosphatase 390 H (38-126) U/L Total Protein 5.8 L (6.3-8.2) g/dL Albumin 3.3 L (3.5-5.0) g/dL Disposition Is patient prescribed a controlled substance at d/c from ED?: No Time of Disposition: 15:15 <Serjio Luke - Last Filed: 11/14/18 15:13> <Chris Kirby - Last Filed: 11/14/18 15:43> Clinical Impression: Nausea vomiting and diarrhea Disposition: HOME SELF-CARE Condition: Good Instructions (If sedation given, give patient instructions): Acute Nausea and Vomiting (ED) Additional Instructions: Please use medication as discussed. Please follow-up with oncologist/family doctor in the next 2 days of symptoms have not improved. Please return to emergency room if the symptoms increase or worsen or for any other concerns. Prescriptions: Ondansetron Odt [Zofran ODT] 4 mg PO Q8HR PRN #20 tab PRN Reason: Nausea Referrals: Kanika Vides MD [Primary Care Provider] - 1-2 days
[2018-11-14 14:05] LABS: Basophils % (A) 0 %; Eosinophils # (A) 0.1 k/uL (0-0.7); Eosinophils % (A) 2 %; HCT 35.5 % (34.0-46.0); HGB 11.9 gm/dL (11.4-16.0); Lymphocytes # (A) 0.1 k/uL (1.0-4.8); Lymphocytes % (A) 4 %; MCHC 33.4 g/dL (31.0-37.0); MCV 89.9 fL (80.0-100.0); Mean Platelet Volume 7.6; Monocytes # (A) 0.2 k/uL (0-1.0); Monocytes % (A) 6 %; Neutrophils # (A) 3.4 k/uL (1.3-7.7); Neutrophils % (A) 85 %; RBC 3.95 m/uL (3.80-5.40); RDW 14.8 % (11.5-15.5)
[2018-11-14 14:06] LABS: ALT 55 U/L (9-52); AST 33 U/L (14-36); Albumin 3.3 g/dL (3.5-5.0); Alkaline Phosphatase 390 U/L (38-126); Anion Gap 8 mmol/L; Blood Urea Nitrogen 27 mg/dL (7-17); Calcium 7.8 mg/dL (8.4-10.2); Carbon Dioxide 26 mmol/L (22-30); Chloride 101 mmol/L (98-107); Glucose 103 mg/dL (74-99); Potassium 3.5 mmol/L (3.5-5.1); Sodium 135 mmol/L (137-145); Total Protein 5.8 g/dL (6.3-8.2)
[2018-11-14 14:08] LABS: Platelet Count 190 k/uL (150-450)
[2018-11-14 14:10] LABS: INR 1.1 (<1.2); Partial Thromboplastin Time 23.3 sec (22.0-30.0); Prothrombin Time 11.4 sec (9.0-12.0)
[2018-11-14] MEDS ORDERED: ONDANSETRON 4 MG ODT STARTER PACK 2 TAB BTL PO STA (15:15)
[2018-11-14 15:28] VITALS: BP 133/67; PULSE 102; TEMP 99.1
== END 2018-11-14 15:27 | disposition home or self-care (01) ==
LOC: EC 13:07
DX: R11.2 Nausea with vomiting, unspecified (principal); R19.7 Diarrhea, unspecified; E86.0 Dehydration; I10 Essential (primary) hypertension; Z85.118 Personal history of other malignant neoplasm of bronchus and lung; Z85.830 Personal history of malignant neoplasm of bone; Z86.011 Personal history of benign neoplasm of the brain; Z92.21 Personal history of antineoplastic chemotherapy; Z96.642 Presence of left artificial hip joint; Z87.891 Personal history of nicotine dependence; Z79.01 Long term (current) use of anticoagulants; Z79.891 Long term (current) use of opiate analgesic; Z79.899 Other long term (current) drug therapy
CPT/HCPCS: 36415; 80053; 85025; 85610; 85730; 99284; 96374; 96375; 96361; J2405; S0119

== ENCOUNTER 2018-11-27 12:04 | Emergency (ER) | payer MEDICARE ==
[2018-11-27 12:13] VITALS: RESP 18; TEMP 99
[2018-11-27] MEDS ORDERED: SODIUM CHLORIDE 0.9% 1,000 ML IV STA ×2 (12:29)
--- NOTE | 2018-11-27 12:30 | ED ---
Weakness HPI - General Chief complaint: Weakness Stated complaint: Weakness Time Seen by Provider: 11/27/18 12:10 Source: patient, EMS, RN notes reviewed, old records reviewed Mode of arrival: EMS Limitations: no limitations - History of Present Illness Initial comments: This is a 73-year-old female the ER for evaluation. She presents today for evaluation regards to nausea vomiting and diarrhea. Persistent diarrhea although he states isn't improved since he arrived in the emergency room. Patient also complains of nausea and vomiting, she believes these are related to a new chemotherapeutic agent that she has been taking. Patient denies shortness of breath denies recent fevers. No abdominal pain. Patient was visited by a visiting nurse today at her house, she became lightheaded and dizzy upon change of position with some change in heart rate, heart rate being elevated. Patient did speak with her oncologist was told to come to the emergency room for evaluation. MD Complaint: generalized weakness, lack of energy -: days(s) Location: generalized Severity: moderate Severity scale (1-10): 4 Consistency: constant Improves with: none Worsens with: none Context: new medication Associated Symptoms: loss of appetite, nausea/vomiting - Related Data Home Medications Medication Instructions Recorded Confirmed Atenolol [Tenormin] 50 mg PO HS 12/12/14 11/27/18 Rivaroxaban [Xarelto] 20 mg PO HS 09/11/18 11/27/18 Famotidine [Pepcid AC] 10 mg PO DAILY 11/27/18 11/27/18 Loperamide [Imodium] 2 mg PO TID PRN 11/27/18 11/27/18 Ondansetron [Zofran] 4 mg PO QAM 11/27/18 11/27/18 Previous Rx's Medication Instructions Recorded Ondansetron Odt [Zofran ODT] 4 mg PO Q8HR PRN #20 tab 11/14/18 Allergies Allergy/AdvReac Type Severity Reaction Status Date / Time No Known Allergies Allergy Verified 11/27/18 12:37 Review of Systems ROS Statement: Those systems with pertinent positive or pertinent negative responses have been documented in the HPI. ROS Other: All systems not noted in ROS Statement are negative. Past Medical History Past Medical History: Cancer, Hyperlipidemia, Hypertension, Thyroid Disorder Additional Past Medical History / Comment(s): Back pain since May 2018. 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, rt hip )has had radiation tx.thyroid nodules History of Any Multi-Drug Resistant Organisms: None Reported Past Surgical History: Orthopedic Surgery, Tonsillectomy Additional Past Surgical History / Comment(s): colonoscopy, left hip replacement cataract , past rt breast cyst aspiration Past Anesthesia/Blood Transfusion Reactions: No Reported Reaction Past Psychological History: No Psychological Hx Reported Smoking Status: Former smoker Past Alcohol Use History: None Reported - Past Family History Father Family Medical History: Hyperlipidemia, Myocardial Infarction ([place]) Mother Additional Family Medical History / Comment(s): diabetes General Exam Limitations: no limitations General appearance: alert, in no apparent distress Head exam: Present: atraumatic, normocephalic, normal inspection Eye exam: Present: normal appearance, PERRL, EOMI. Absent: scleral icterus, conjunctival injection, periorbital swelling ENT exam: Present: normal exam, mucous membranes dry Neck exam: Present: normal inspection. Absent: tenderness, meningismus, lymphadenopathy Respiratory exam: Present: normal lung sounds bilaterally. Absent: respiratory distress, wheezes, rales, rhonchi, stridor Cardiovascular Exam: Present: regular rate, normal rhythm, normal heart sounds. Absent: systolic murmur, diastolic murmur, rubs, gallop, clicks GI/Abdominal exam: Present: soft, normal bowel sounds. Absent: distended, tenderness, guarding, rebound, rigid Extremities exam: Present: normal inspection, full ROM, normal capillary refill. Absent: tenderness, pedal edema, joint swelling, calf tenderness Back exam: Present: normal inspection Neurological exam: Present: alert, oriented X3, CN II-XII intact Psychiatric exam: Present: normal affect, normal mood Skin exam: Present: warm, dry, intact, normal color. Absent: rash Course Vital Signs 11/27/18 11/27/18 11/27/18 12:08 12:30 13:00 Temperature 99.0 F Pulse Rate 92 96 90 Respiratory 18 18 18 Rate Blood Pressure 115/71 115/71 110/70 O2 Sat by Pulse 97 Oximetry 11/27/18 11/27/18 11/27/18 13:30 14:00 14:30 Temperature Pulse Rate 90 90 Respiratory Rate Blood Pressure 121/75 145/75 128/71 O2 Sat by Pulse Oximetry - Reevaluation(s) Reevaluation #1: 02/18/19 15:04 Medical records reviewed Reevaluation #2: 11/27/18 15:04 Patient feels better after IV hydration EKG Findings - EKG Comments: EKG Findings:: AG shows sinus rhythm rate of 96, GA 142, QRS 80, QTC 477 Medical Decision Making - Medical Decision Making 73 female the ER for evaluation of dehydration medication reaction. Patient on new chemotherapeutic trial agent, is been feeling weak lightheaded and dizziness especially with change of position. Patient feels better after IV fluid here, LITES are normal blood pressure currently normal and hasn't stable failure stay. Patient can be discharged home - Lab Data Result diagrams: 11/27/18 13:13 11/27/18 13:13 Lab Results 11/27/18 11/27/18 11/27/18 Range/Units 13:13 13:13 13:13 WBC 5.2 (3.8-10.6) k/uL RBC 3.77 L (3.80-5.40) m/uL Hgb 11.4 (11.4-16.0) gm/dL Hct 34.4 (34.0-46.0) % MCV 91.2 (80.0-100.0) fL MCH 30.2 (25.0-35.0) pg MCHC 33.1 (31.0-37.0) g/dL RDW 15.1 (11.5-15.5) % Plt Count 267 (150-450) k/uL Neutrophils % 81 % Lymphocytes % 5 % Monocytes % 6 % Eosinophils % 5 % Basophils % 1 % Neutrophils # 4.2 (1.3-7.7) k/uL Lymphocytes # 0.3 L (1.0-4.8) k/uL Monocytes # 0.3 (0-1.0) k/uL Eosinophils # 0.3 (0-0.7) k/uL Basophils # 0.0 (0-0.2) k/uL PT (9.0-12.0) sec INR (<1.2) APTT (22.0-30.0) sec Sodium 138 (137-145) mmol/L Potassium 3.9 (3.5-5.1) mmol/L Chloride 103 (98-107) mmol/L Carbon Dioxide 27 (22-30) mmol/L Anion Gap 8 mmol/L BUN 18 H (7-17) mg/dL Creatinine 0.75 (0.52-1.04) mg/dL Est GFR (CKD-EPI)AfAm >90 (>60 ml/min/1.73 sqM) Est GFR (CKD-EPI)NonAf 79 (>60 ml/min/1.73 sqM) Glucose 112 H (74-99) mg/dL Plasma Lactic Acid Sumit (0.7-2.0) mmol/L Calcium 8.5 (8.4-10.2) mg/dL Phosphorus 3.2 (2.5-4.5) mg/dL Magnesium 2.0 (1.6-2.3) mg/dL Total Bilirubin 0.8 (0.2-1.3) mg/dL AST 59 H (14-36) U/L ALT 93 H (9-52) U/L Alkaline Phosphatase 287 H (38-126) U/L Total Creatine Kinase <20 L (30-135) U/L CK-MB (CK-2) <0.2 (0.0-2.4) ng/mL CK-MB (CK-2) Rel Index Troponin I <0.012 (0.000-0.034) ng/mL Total Protein 5.6 L (6.3-8.2) g/dL Albumin 3.0 L (3.5-5.0) g/dL 11/27/18 11/27/18 Range/Units 13:13 13:13 WBC (3.8-10.6) k/uL RBC (3.80-5.40) m/uL Hgb (11.4-16.0) gm/dL Hct (34.0-46.0) % MCV (80.0-100.0) fL MCH (25.0-35.0) pg MCHC (31.0-37.0) g/dL RDW (11.5-15.5) % Plt Count (150-450) k/uL Neutrophils % % Lymphocytes % % Monocytes % % Eosinophils % % Basophils % % Neutrophils # (1.3-7.7) k/uL Lymphocytes # (1.0-4.8) k/uL Monocytes # (0-1.0) k/uL Eosinophils # (0-0.7) k/uL Basophils # (0-0.2) k/uL PT 11.1 (9.0-12.0) sec INR 1.1 (<1.2) APTT 24.7 (22.0-30.0) sec Sodium (137-145) mmol/L Potassium (3.5-5.1) mmol/L Chloride (98-107) mmol/L Carbon Dioxide (22-30) mmol/L Anion Gap mmol/L BUN (7-17) mg/dL Creatinine (0.52-1.04) mg/dL Est GFR (CKD-EPI)AfAm (>60 ml/min/1.73 sqM) Est GFR (CKD-EPI)NonAf (>60 ml/min/1.73 sqM) Glucose (74-99) mg/dL Plasma Lactic Acid Sumit 1.1 (0.7-2.0) mmol/L Calcium (8.4-10.2) mg/dL Phosphorus (2.5-4.5) mg/dL Magnesium (1.6-2.3) mg/dL Total Bilirubin (0.2-1.3) mg/dL AST (14-36) U/L ALT (9-52) U/L Alkaline Phosphatase (38-126) U/L Total Creatine Kinase (30-135) U/L CK-MB (CK-2) (0.0-2.4) ng/mL CK-MB (CK-2) Rel Index Troponin I (0.000-0.034) ng/mL Total Protein (6.3-8.2) g/dL Albumin (3.5-5.0) g/dL Disposition Clinical Impression: Nausea vomiting and diarrhea, Weakness Disposition: HOME SELF-CARE Condition: Good Instructions (If sedation given, give patient instructions): Dehydration (ED) Is patient prescribed a controlled substance at d/c from ED?: No Referrals: Kanika Vides MD [Primary Care Provider] - 1-2 days
[2018-11-27 13:38] LABS: Basophils % (A) 1 %; Eosinophils # (A) 0.3 k/uL (0-0.7); Eosinophils % (A) 5 %; HCT 34.4 % (34.0-46.0); HGB 11.4 gm/dL (11.4-16.0); Lymphocytes # (A) 0.3 k/uL (1.0-4.8); Lymphocytes % (A) 5 %; MCH 30.2 pg (25.0-35.0); MCHC 33.1 g/dL (31.0-37.0); MCV 91.2 fL (80.0-100.0); Mean Platelet Volume 8.2; Monocytes # (A) 0.3 k/uL (0-1.0); Monocytes % (A) 6 %; Neutrophils # (A) 4.2 k/uL (1.3-7.7); Neutrophils % (A) 81 %; Platelet Count 267 k/uL (150-450); RBC 3.77 m/uL (3.80-5.40); RDW 15.1 % (11.5-15.5); WBC 5.2 k/uL (3.8-10.6)
[2018-11-27 13:47] LABS: ALT 93 U/L (9-52); AST 59 U/L (14-36); Alkaline Phosphatase 287 U/L (38-126); Anion Gap 8 mmol/L; Blood Urea Nitrogen 18 mg/dL (7-17); Calcium 8.5 mg/dL (8.4-10.2); Carbon Dioxide 27 mmol/L (22-30); Chloride 103 mmol/L (98-107); Glucose 112 mg/dL (74-99); Phosphorus 3.2 mg/dL (2.5-4.5); Potassium 3.9 mmol/L (3.5-5.1); Sodium 138 mmol/L (137-145); Total Bilirubin 0.8 mg/dL (0.2-1.3); Total Protein 5.6 g/dL (6.3-8.2)
[2018-11-27 13:49] LABS: INR 1.1 (<1.2); Partial Thromboplastin Time 24.7 sec (22.0-30.0); Prothrombin Time 11.1 sec (9.0-12.0)
[2018-11-27 14:05] LABS: Creatine Kinase <20 U/L (30-135)
[2018-11-27 14:17] LABS: Creatine Kinase MB <0.2 ng/mL (0.0-2.4); Troponin I <0.012 ng/mL (0.000-0.034)
--- NOTE | 2018-11-27 14:34 | XR ---
EXAMINATION TYPE: XR chest 2V DATE OF EXAM: 11/27/2018 COMPARISON: 09/11/2018 HISTORY: 73-year-old female with weakness TECHNIQUE: AP and lateral views FINDINGS: Heart normal size. Aorta and pulmonary vasculature within normal limits. Asymmetric left suprahilar p rominence redemonstrated. No consolidation or pleural effusion. Endplate spondylosis midthoracic spin e. IMPRESSION: No acute cardiopulmonary process. Known left suprahilar mass.
[2018-11-27 16:12] VITALS: BP 146/66; PULSE 87
== END 2018-11-27 16:51 | disposition home or self-care (01) ==
LOC: EC 12:04
DX: R53.1 Weakness (principal); R11.2 Nausea with vomiting, unspecified; R19.7 Diarrhea, unspecified; T45.1X5A Adverse effect of antineoplastic and immunosuppressive drugs, initial encounter; R63.0 Anorexia; R42 Dizziness and giddiness; R00.0 Tachycardia, unspecified; R53.83 Other fatigue; C34.90 Malignant neoplasm of unspecified part of unspecified bronchus or lung; C79.31 Secondary malignant neoplasm of brain; C79.51 Secondary malignant neoplasm of bone; I10 Essential (primary) hypertension; Z87.891 Personal history of nicotine dependence; Z79.01 Long term (current) use of anticoagulants; Z79.899 Other long term (current) drug therapy; Z92.3 Personal history of irradiation; Z96.642 Presence of left artificial hip joint
CPT/HCPCS: 36415; 71046; 80053; 82550; 82553; 83605; 83735; 84100; 84484; 85025; 85610; 85730; 87040; 93005; 96360; 96361; 99285

== ENCOUNTER 2019-02-08 11:29 | Day surgery (SDC) | payer MEDICARE ==
[~2019-02-08 11:29] MED LIST: HEPARIN SODIUM,PORCINE 5,000 UNIT/ML 1 ML VIAL SQ ONE; Pre Op ABX Message 1 EACH MISC MISCELLANE ONE
[2019-02-08] MEDS ORDERED: HYDROmorphone 0.5 MG/0.5 ML SYRINGE IVP PRN (11:53)
[2019-02-08] MEDS ORDERED: LACTATED RINGERS 1,000 ML IV SCH (11:53)
[2019-02-08] MEDS ORDERED: ONDANSETRON 4 MG/2 ML VIAL IVP ONE (11:53)
[2019-02-08] MEDS ORDERED: LIDOCAINE 1% 20 ML VIAL (10MG/ML) FOR IV START INTRADERMA PRN (11:53)
[2019-02-08 12:12] LABS: Glucose,Whole Blood 98 mg/dL (75-99)
[2019-02-08 12:13] VITALS: RESP 16; TEMP 97
[2019-02-08 12:28] LABS: INR 0.9 (<1.2); Prothrombin Time 10.1 sec (9.0-12.0)
--- NOTE | 2019-02-08 13:41 | P.GSHP ---
History of Present Illness H&P Date: 02/08/19 Chief Complaint: Lung cancer 73-year-old female was diagnosed with metastatic lung cancer last July. Patient currently undergoing adjuvant chemotherapy. Patient requires frequent IV fluid hydration because of issues related to nausea vomiting and diarrhea. Patient's next chemotherapy 2 weeks from now. She has not had a port previously. Past Medical History Past Medical History: Cancer, Hyperlipidemia, Hypertension, Thyroid Disorder Additional Past Medical History / Comment(s): Back pain since May 2018. 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, rt hip )has had radiation tx.thyroid nodules History of Any Multi-Drug Resistant Organisms: None Reported Past Surgical History: Orthopedic Surgery, Tonsillectomy Additional Past Surgical History / Comment(s): colonoscopy, left hip replacement cataract , past rt breast cyst aspiration Past Anesthesia/Blood Transfusion Reactions: No Reported Reaction Past Psychological History: No Psychological Hx Reported Smoking Status: Former smoker Past Alcohol Use History: None Reported - Past Family History Father Family Medical History: Hyperlipidemia, Myocardial Infarction ([place]) Mother Additional Family Medical History / Comment(s): diabetes Medications and Allergies Home Medications Medication Instructions Recorded Confirmed Type Rivaroxaban [Xarelto] 20 mg PO HS 09/11/18 02/08/19 History Famotidine [Pepcid AC] 10 mg PO DAILY 11/27/18 02/08/19 History Loperamide [Imodium] 2 mg PO TID PRN 11/27/18 02/08/19 History Ondansetron [Zofran] 8 mg PO QAM 11/27/18 02/08/19 History Diphenox-Atrop 2.5-0.025 mg 1 tab PO 5XD PRN 02/08/19 02/08/19 History [Lomotil] Magnesium Oxide 400 mg PO DAILY 02/08/19 02/08/19 History Potassium Chloride Oral Liquid 10 meq PO DAILY 02/08/19 02/08/19 History Poziotinib 12 mg PO DAILY 02/08/19 History predniSONE 30 mg PO DAILY 02/08/19 02/08/19 History Allergies Allergy/AdvReac Type Severity Reaction Status Date / Time No Known Allergies Allergy Verified 02/08/19 11:58 Surgical - Exam Vital Signs Temp Pulse Resp BP Pulse Ox 97 F L 111 H 16 144/80 99 02/08/19 12:11 02/08/19 12:11 02/08/19 12:11 02/08/19 12:11 02/08/19 12:11 Physical exam: General: Well-developed, well-nourished HEENT: Normocephalic, sclerae nonicteric Abdomen: Nontender, nondistended Extremities: No edema Neuro: Alert and oriented Assessment and Plan (1) Metastatic lung cancer (metastasis from lung to other site) Narrative/Plan: Will proceed with Port-A-Cath placement at this time. Risks of bleeding, infection, DVT, pneumothorax, catheter malfunction, anesthesia related complications were discussed. The patient understands and wishes to proceed. Current Visit: No Status: Acute Priority: High Code(s): C34.90 - MALIGNANT NEOPLASM OF UNSP PART OF UNSP BRONCHUS OR LUNG SNOMED Code(s): 46701793
[2019-02-08] MEDS ORDERED: ceFAZolin IN SWFI 2 GM/20 ML SYRINGE IVP STA (13:42)
[2019-02-08] MEDS ORDERED: fentaNYL (PF) 50 MCG/ML 2 ML AMP ONE (13:44)
[2019-02-08] MEDS ORDERED: MIDAZOLAM 2 MG/2 ML VIAL ONE (13:44)
[2019-02-08] MEDS ORDERED: PROPOFOL 10 MG/ML 20 ML VIAL IV ONE (13:44)
[2019-02-08] MEDS ORDERED: SODIUM CHLORIDE 0.9% 100 ML with ceFAZolin 2,000 MG IV ONE ×2 (13:57)
[2019-02-08] MEDS ORDERED: HEPARIN SODIUM,PORCINE 100 UNIT/ML 5 ML VIAL IV ONE ×2 (13:59)
[2019-02-08] MEDS ORDERED: LIDOCAINE (PF) 10 MG/ML 2 ML VIAL SQ ONE ×2 (13:59)
[2019-02-08] MEDS ORDERED: NALOXONE 0.4 MG/ML 1 ML VIAL IV PRN (14:29)
[2019-02-08] MEDS ORDERED: HYDROcodone/APAP 5-325MG 1 EACH TAB PO PRN (14:29)
--- NOTE | 2019-02-08 14:31 | P.OP ---
Date of Procedure: 02/08/19 Procedure(s) Performed: PREOPERATIVE DIAGNOSIS: Lung cancer POSTOPERATIVE DIAGNOSIS: Same PROCEDURE: Port-A-Cath placement SURGEON: Jonathan EBL: Minimal ANESTHESIA: Sedation COMPLICATIONS: None OPERATIVE PROCEDURE: Patient was brought and placed on the operative table in the supine position. The patient was sedated per anesthesia that time. The chest and neck were prepped and draped in usual sterile fashion. The ultrasound probe was used to identify the location of the right internal jugular vein. The skin was localized with lidocaine. The Seldinger needle was advanced into the IJ under ultrasound guidance. The wire was advanced through the needle under fluoroscopic guidance into the superior vena cava. A port pocket was created in the right infraclavicular location. The catheter was tunneled from the wire entrance site to the port pocket. The port was then connected to the catheter. The dilator introducer was threaded over the guidewire. The guidewire and dilator were then removed. The catheter was advanced through the introducer and introducer was then removed. The tip was seen to be in the right atrial junction. Port was flushed with both saline and a Hep-Lock solution. There was good flow both in and out of the port. The port was sutured in underlying tissues using 3-0 silk sutures. The subcutaneous tissues were reapproximated using 3-0 Vicryl sutures and the skin at both locations using 4-0 Monocryl sutures. Skin glue and sterile dressings then applied. DISPOSITION: Stable to recovery room
--- NOTE | 2019-02-08 14:58 | XR ---
EXAMINATION TYPE: XR chest 1V confirm line plcmt DATE OF EXAM: 02/08/2019 COMPARISON: Prior chest x-ray 11/27/2018 HISTORY: Status post central venous catheter placement TECHNIQUE: Single frontal view of the chest is obtained. FINDINGS: There is been interval placement of a port in the right pectoral region, distal tip of the catheter via right internal jugular approach is overlying the superior vena cava. No evident pneumot horax or pleural effusion. Sclerotic focus in the proximal right humerus may represent metastatic foc us. IMPRESSION: No evident complication status post central venous catheter placement. Additional findin gs above.
[2019-02-08 15:00] VITALS: BP 146/84; PULSE 78
--- NOTE | 2019-02-08 15:28 | FL ---
Fluoroscopy HISTORY: Port-A-Cath placement 9 seconds fluoroscopy time supplied to the referring clinician. 1 intraoperative C-arm images docume nt the procedure. See dictated report from general surgery.
== END 2019-02-08 15:31 | disposition home or self-care (01) ==
LOC: OR 11:29
PROVIDERS: ATTEND Surgery
DX: C34.90 Malignant neoplasm of unspecified part of unspecified bronchus or lung (principal); C79.31 Secondary malignant neoplasm of brain; C79.51 Secondary malignant neoplasm of bone; R11.2 Nausea with vomiting, unspecified; R19.7 Diarrhea, unspecified; I48.91 Unspecified atrial fibrillation; E07.9 Disorder of thyroid, unspecified; E78.5 Hyperlipidemia, unspecified; K21.9 Gastro-esophageal reflux disease without esophagitis; I10 Essential (primary) hypertension; Z92.3 Personal history of irradiation; Z87.891 Personal history of nicotine dependence; Z83.3 Family history of diabetes mellitus; Z79.01 Long term (current) use of anticoagulants; Z79.52 Long term (current) use of systemic steroids; Z79.899 Other long term (current) drug therapy
CPT/HCPCS: 36561; 76937; 85610; 77001; C1788; J2250; J2001; J1644; J1642; J2405; J0690; J3010; J2704

== ENCOUNTER 2019-03-10 10:50 | Emergency (ER) | payer MEDICARE ==
[2019-03-10 10:59] VITALS: RESP 18; TEMP 98.6
[2019-03-10] MEDS ORDERED: MORPHINE SULFATE 4 MG/ML SYRINGE IVP STA (11:18)
[2019-03-10] MEDS ORDERED: SODIUM CHLORIDE 0.9% 500 ML 500 ML IV STA (11:18)
--- NOTE | 2019-03-10 11:30 | ED ---
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 Patient states she has posterior neck pain that since shooting pains down the bilateral arms. States this hurts somewhat more when she moves her neck. Denies fevers or chills. Denies any significant stiffness. Denies any weakness in the arms. Patient states that lung cancer had metastasized to her spine. States she has CAT scans frequently from the lungs down but has not had a CAT scan of the neck and is concerned it may be "cancer cells." Patient did have palliative radiation last in October. Patient currently on a target pill. Denies any fevers or chills. Patient states she was taking Charlotte for pain before the radiation but does not have any at home at this time. Patient has no other complaints at this time including shortness of breath, chest pain, abdominal pain, nausea or vomiting, headache, or visual changes. (Javier Fisher) - Related Data Home Medications Medication Instructions Recorded Confirmed Rivaroxaban [Xarelto] 20 mg PO HS 09/11/18 03/10/19 Famotidine [Pepcid AC] 10 mg PO DAILY 11/27/18 03/10/19 Loperamide [Imodium] 2 mg PO TID PRN 11/27/18 03/10/19 Ondansetron [Zofran] 8 mg PO QAM PRN 11/27/18 03/10/19 Magnesium Oxide 400 mg PO DAILY 02/08/19 03/10/19 Potassium Chloride Oral Liquid 10 meq PO DAILY 02/08/19 03/10/19 Poziotinib 12 mg PO DAILY 02/08/19 03/10/19 Fludrocortisone [Florinef] 0.1 mg PO DAILY 03/10/19 03/10/19 Naproxen Sodium [Aleve] 440 mg PO DAILY PRN 03/10/19 03/10/19 predniSONE 5 mg PO DAILY 03/10/19 03/10/19 Previous Rx's Medication Instructions Recorded Dexamethasone [Decadron] 4 mg PO BID 5 Days tablet 03/10/19 HYDROcodone/APAP 10-325MG [Charlotte 1 tab PO Q4-6H PRN #12 tab 03/10/19 10-325] Allergies Allergy/AdvReac Type Severity Reaction Status Date / Time No Known Allergies Allergy Verified 03/10/19 11:08 Review of Systems ROS Other: All systems not noted in ROS Statement are negative. <Jorge Cota - Last Filed: 03/10/19 14:21> ROS Other: All systems not noted in ROS Statement are negative. <Javier Fisher - Last Filed: 03/10/19 15:03> ROS Statement: Those systems with pertinent positive or pertinent negative responses have been documented in the HPI. Past Medical History Past Medical History: Cancer, Hyperlipidemia, Hypertension, Thyroid Disorder Additional Past Medical History / Comment(s): Back pain since May 2018. 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, rt hip )has had radiation tx.thyroid nodules History of Any Multi-Drug Resistant Organisms: None Reported Past Surgical History: Orthopedic Surgery, Tonsillectomy Additional Past Surgical History / Comment(s): colonoscopy, left hip replacement cataract , past rt breast cyst aspiration Past Anesthesia/Blood Transfusion Reactions: No Reported Reaction Past Psychological History: No Psychological Hx Reported Smoking Status: Former smoker Past Alcohol Use History: None Reported - Past Family History Father Family Medical History: Hyperlipidemia, Myocardial Infarction (DC) Mother Additional Family Medical History / Comment(s): diabetes <Javier Fisher - Last Filed: 03/10/19 15:03> General Exam Limitations: no limitations General appearance: alert, in no apparent distress Head exam: Present: atraumatic, normocephalic, normal inspection Eye exam: Present: normal appearance, PERRL, EOMI. Absent: scleral icterus, conjunctival injection, periorbital swelling ENT exam: Present: normal exam, mucous membranes moist Neck exam: Present: normal inspection, other (Skin is intact.). Absent: tenderness (No significant cervical spine tenderness.), meningismus, full ROM (Patient has about 45 rotation bilaterally with 20 extension and flexion.), lymphadenopathy Respiratory exam: Present: normal lung sounds bilaterally. Absent: respiratory distress, wheezes, rales, rhonchi, stridor Cardiovascular Exam: Present: regular rate, normal rhythm, normal heart sounds. Absent: systolic murmur, diastolic murmur, rubs, gallop, clicks Extremities exam: Present: full ROM (Full range of motion of upper extremities, strength 5 out of 5 in upper extremities), normal capillary refill (Cap refill less than 2 seconds, radial pulses 2+ and equal bilaterally), other (Sensation intact in upper extremities) Neurological exam: Present: alert Psychiatric exam: Present: normal affect, normal mood <Javier Fisher - Last Filed: 03/10/19 15:03> Course Vital Signs 03/10/19 10:55 Temperature 98.6 F Pulse Rate 96 Respiratory 18 Rate Blood Pressure 148/87 O2 Sat by Pulse 97 Oximetry Medical Decision Making - Lab Data Result diagrams: 03/10/19 12:16 03/10/19 12:16 <Jorge Cota - Last Filed: 03/10/19 14:21> - Lab Data Result diagrams: 03/10/19 12:16 03/10/19 12:16 <Javier Fisher - Last Filed: 03/10/19 15:03> - Medical Decision Making Case discussed with Dr. Dubon who is agreeable with discharge however recommends close follow-up either Tuesday or Tuesday. Patient cannot get into her oncologist she is willing to follow up with patient. She does recommend adding Decadron 4 mg twice a day for the next 5 days in addition to her current regimen. (Jorge Cota) 73-year-old female presents to the emergency department for a chief complaint of neck pain. Patient does have metastatic breast cancer. Patient is concerned this could be cancer related. On exam patient does not have any weakness or loss of sensation in the bilateral upper extremities. However she has complaint of pain radiating from her neck down her bilateral arms. No significant ce rvical spine tenderness. CBC CMP unremarkable. Pain much improved with morphine, patient given Dilaudid as she does still have some residual pain. C- spine CT does show a destructive lesion centered on the C3 to C4 disc space with partial destruction of the posterior aspect and some impingement upon the spinal canal. Recommends MRI. This is likely the cause of patient's symptoms. Dr. Cota discussed this with oncologist, patient updated on the plan of Decadron and following up Tuesday. Aware she can follow-up with Dr Dubon if unable to contact her own oncologist. She will be given Charlotte as she does not have anything at home for pain. She will return here if she has any worsening sy mptoms. (Javier Fisher) - Lab Data Lab Results 03/10/19 03/10/19 Range/Units 12:16 12:16 WBC 6.4 (3.8-10.6) k/uL RBC 4.10 (3.80-5.40) m/uL Hgb 12.2 (11.4-16.0) gm/dL Hct 36.7 (34.0-46.0) % MCV 89.4 (80.0-100.0) fL MCH 29.8 (25.0-35.0) pg MCHC 33.3 (31.0-37.0) g/dL RDW 16.4 H (11.5-15.5) % Plt Count 353 (150-450) k/uL Neutrophils % 83 % Lymphocytes % 5 % Monocytes % 6 % Eosinophils % 4 % Basophils % 0 % Neutrophils # 5.4 (1.3-7.7) k/uL Lymphocytes # 0.3 L (1.0-4.8) k/uL Monocytes # 0.4 (0-1.0) k/uL Eosinophils # 0.2 (0-0.7) k/uL Basophils # 0.0 (0-0.2) k/uL Anisocytosis Slight Sodium 139 (137-145) mmol/L Potassium 3.8 (3.5-5.1) mmol/L Chloride 106 (98-107) mmol/L Carbon Dioxide 28 (22-30) mmol/L Anion Gap 5 mmol/L BUN 17 (7-17) mg/dL Creatinine 0.68 (0.52-1.04) mg/dL Est GFR (CKD-EPI)AfAm >90 (>60 ml/min/1.73 sqM) Est GFR (CKD-EPI)NonAf 87 (>60 ml/min/1.73 sqM) Glucose 102 H (74-99) mg/dL Calcium 9.2 (8.4-10.2) mg/dL Total Bilirubin 0.5 (0.2-1.3) mg/dL AST 28 (14-36) U/L ALT 20 (9-52) U/L Alkaline Phosphatase 118 (38-126) U/L Total Protein 5.5 L (6.3-8.2) g/dL Albumin 3.3 L (3.5-5.0) g/dL Disposition <Jorge Cota - Last Filed: 03/10/19 14:21> Is patient prescribed a controlled substance at d/c from ED?: No Time of Disposition: 15: <Javier Fisher - Last Filed: 03/10/19 15:03> Clinical Impression: Metastatic cancer to spine Narrative: Destructive lesion of C3-4 (Javier Fisher) Disposition: HOME SELF-CARE Condition: Fair Instructions (If sedation given, give patient instructions): Neck Pain (ED) Additional Instructions: Please take Charlotte for pain. Take Decadron as directed starting tomorrow. Follow-up with your oncologist Tuesday or Tuesday. If you're unable to see them please follow-up with Dr Dubon. If you have any worsening symptoms return here to the ER. Prescriptions: Dexamethasone [Decadron] 4 mg PO BID 5 Days tablet HYDROcodone/APAP 10-325MG [Charlotte 10-325] 1 tab PO Q4-6H PRN #12 tab PRN Reason: Pain Referrals: Kanika Vides MD [Primary Care Provider] - 1-2 days Cheryl Dubon MD [Medical Doctor] - 1-2 days
[2019-03-10 12:25] LABS: Anisocytosis Slight; Basophils % (A) 0 %; Eosinophils # (A) 0.2 k/uL (0-0.7); Eosinophils % (A) 4 %; HCT 36.7 % (34.0-46.0); HGB 12.2 gm/dL (11.4-16.0); Lymphocytes # (A) 0.3 k/uL (1.0-4.8); Lymphocytes % (A) 5 %; MCH 29.8 pg (25.0-35.0); MCHC 33.3 g/dL (31.0-37.0); MCV 89.4 fL (80.0-100.0); Mean Platelet Volume 7.3; Monocytes # (A) 0.4 k/uL (0-1.0); Monocytes % (A) 6 %; Neutrophils # (A) 5.4 k/uL (1.3-7.7); Neutrophils % (A) 83 %; Platelet Count 353 k/uL (150-450); RDW 16.4 % (11.5-15.5); WBC 6.4 k/uL (3.8-10.6)
[2019-03-10 12:36] LABS: ALT 20 U/L (9-52); AST 28 U/L (14-36); Albumin 3.3 g/dL (3.5-5.0); Alkaline Phosphatase 118 U/L (38-126); Anion Gap 5 mmol/L; Blood Urea Nitrogen 17 mg/dL (7-17); Calcium 9.2 mg/dL (8.4-10.2); Carbon Dioxide 28 mmol/L (22-30); Chloride 106 mmol/L (98-107); Glucose 102 mg/dL (74-99); Potassium 3.8 mmol/L (3.5-5.1); Sodium 139 mmol/L (137-145); Total Bilirubin 0.5 mg/dL (0.2-1.3); Total Protein 5.5 g/dL (6.3-8.2)
--- NOTE | 2019-03-10 13:26 | CT ---
EXAMINATION TYPE: CT cervical spine wo con DATE OF EXAM: 03/10/2019 COMPARISON: None. HISTORY: Neck pain radiating in bilateral arms CT DLP: 279.6 mGycm Automated exposure control for dose reduction was used. TECHNIQUE: CT scan of the cervical spine is obtained without contrast, axial images are obtained, sa gittal and coronal reformatted images are also reviewed. FINDINGS: There is a destructive lesion which appears centered on the C3-4 disc level. There is distr action of the posterior aspect of the C4 vertebral body and also part of the posterior aspect of the C3 vertebral body. This is impinging upon the thecal sac but the absence of contrast makes it impossi ble to assess the degree of stenosis is lesion is causing. On axial image 50 and the degree of imping ement appears to be significant. There is some dependent atelectasis in the dependent portions of the lungs. There is no significant a denopathy. The left lobe of the thyroid is larger than the right. There is some associated calcificat ion. There is facet arthropathy bilaterally at C3-4, worse on the left than the right. There is disc space loss and hypertrophic spondylosis at C4-5 and C5-6 and to a lesser extent C6-7. It is also pres ent at the T1 to and T2-3 levels. IMPRESSION: 1. DESTRUCTIVE LESION CENTERED ON THE C3-4 DISC SPACE WITH PARTIAL DESTRUCTION OF THE POSTERIOR ASPEC T OF C3 AND C4 WITH SOME IMPINGEMENT UPON THE SPINAL CANAL. 2. DEGENERATIVE CHANGE DESCRIBED. 3. MRI OF THE CERVICAL SPINE WITH AND WITHOUT CONTRAST WOULD BE SUGGESTED.
[2019-03-10] MEDS ORDERED: HYDROmorphone 0.5 MG/0.5 ML SYRINGE IVP STA (13:56)
[2019-03-10] MEDS ORDERED: DEXAMETHASONE SOD PHOSPHATE 4 MG/ML 1 ML VIAL IV STA (14:48)
[2019-03-10 16:12] VITALS: BP 141/88; PULSE 91
== END 2019-03-10 16:10 | disposition home or self-care (01) ==
LOC: EC 10:50
DX: C79.51 Secondary malignant neoplasm of bone (principal); C34.90 Malignant neoplasm of unspecified part of unspecified bronchus or lung; C79.31 Secondary malignant neoplasm of brain; I10 Essential (primary) hypertension; Z87.891 Personal history of nicotine dependence; Z79.01 Long term (current) use of anticoagulants; Z79.52 Long term (current) use of systemic steroids; Z79.899 Other long term (current) drug therapy; Z92.3 Personal history of irradiation; Z96.642 Presence of left artificial hip joint
CPT/HCPCS: 99284; 96374; 96375 ×2; 36415; 80053; 85025; 72125; J2270; J1100; J1170